=== PATIENT | male | born 1935 | race Caucasian/White ===

== ENCOUNTER 2017-06-30 14:30 | Outpatient (RCR) | payer OTHER, SELFPAY ==
--- NOTE | 2017-06-17 17:08 | PT.OTRE ---
Addendum entered and electronically signed by Paris Taylor, PT 06/17/17 17:56: Transition note: On June 14, 2017 our therapy services consisting of Speech, Occupational, and Physical Therapy transitioned from the [employer] electronic documentation system to a new [employer] electronic documentation system.?? All documentation prior to June 14 can be found under [employer] saved data. From June 14 forward all medical record documentation will be in [employer]. Original Note: Current Diagnoses Pain in left knee (06/17/17) Low back pain (06/17/17) Muscle weakness (generalized) (06/17/17) Iliotibial band syndrome, left leg (06/17/17) Dizziness and giddiness (06/17/17) Past Medical History (Last Updated 06/17/17 @ 15:46 by Ron Alicia, PT) Back pain (Acute) Dizziness (Acute) Head ache (Acute) Hearing impairment (Acute) Melanoma (Acute) Memory impairment (Acute) Surgical History History of cataract removal with insertion of prosthetic lens Status post hernia repair Status post hernia repair Status post tonsillectomy and adenoidectomy Physical Therapy Re-Evaluation PT-OP-A Visit Information Start: 06/17/17 15:25 Freq: Status: Active Protocol: Activity Type Activity Date Activity User E-Sign Co-Sign Detail Recorded Client Recorded Date Recorded By Document 06/17/17 15:10 [facility] [email or web address] 06/17/17 16:01 [facility] 06/17/17 15:10 Out-Patient Physical Therapy Visit Information [Visit Information] -Visit Type Re-Evaluation -Visit Note Initial evaluation on due to low back pain and also treated for dizziness up to 05/25/2017. New physical therapy referral for L knee pain dated 05/31/[address] Garcia, which is what was re- evaluated during this session. 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 Visits 0 [Evaluation Information] -Evaluation Date 05/05/17 PT-OP-B Current Condition Start: 06/17/17 15:25 Freq: Status: Active Protocol: Activity Type Activity Date Activity User E-Sign Co-Sign Detail Recorded Client Recorded Date Recorded By Document 06/17/17 15:10 [facility] [email or web address] 06/17/17 16:13 [facility] 06/17/17 15:10 Current Condition [History of Current Condition] -Onset Date 1 month ago -Current Complaints L knee and lateral thigh pain -History of Current Condition Pt is a 81 y/o male presenting to physical therapy with a c/o L knee and lateral thigh pain. Onset of pain ~1 month ago aggravated by exercises with physical therapy to his low back. His low back pain is no longer bothering him, he reports he is back to his prior level with his low back. Now, his L knee and lateral thigh is painful generally all the time, but worse with prolonged movement (i.e. walking). He has a h/o this condition dated back 4-5 yrs ago while swimming, but reports it went away with physical therapy and ultrasound. -Prior Treatments and Tests Treated for low back pain with return to prior level of function and dizziness with resolution from 05/05-05/25/17. He has a prior h/o same knee and thigh pain 4-5 years ago. No diagnostic imaging performed on knee. [Treatment Goals] -Patient/Caregiver Goals Pt wants to eliminated L knee and lateral thigh pain. [Prior Functional Status] -Baseline Function- ADL's Independent -Baseline Function- Mobility Independent -Baseline Function- Recreation/Hobbies Indep. yard work without L knee and lateral thigh pain. [Current Functional Impairments ( Reported)] -Functional Limitations- Recreation/ Indep. with Hobbies mild to moderate pain in L knee and lateral thigh pain. [Personal Factors] -Other Personal Factors That May Recent low back Effect Therapy/Recovery pain with return to prior level of function with physical therapy, recent h/o dizziness with GLF d/t dizziness 2017. Pt reports memory impairment ( self-reported). PT-OP-C Subjective Start: 06/17/17 15:25 Freq: Status: Active Protocol: Activity Type Activity Date Activity User E-Sign Co-Sign Detail Recorded Client Recorded Date Recorded By Document 06/17/17 15:10 [facility] [email or web address] 06/17/17 16:57 [facility] 06/17/17 15:10 OP-PT Subjective [Patient Comments] -Patient Comments Pt reports that L knee and lateral thigh pain is affecting his ability to tolerate walking and working in the yard. OP-PT Pain Assessment [Location] Left Knee -Intensity 2 -Scale Used Numeric (1 - 10 ) -Description Tender Tightness -Frequency Constant -Pain Aggravating Factors Activity Exercise Walking -Pain Alleviating Factors Rest -Patient Stated Pain Goal 0/10 [Home Pain Medication Use] -Pain Medications Used No [Comments] -Pain Comments Pt reports pain in both L lateral knee and thigh. PT-OP-F Manual Assessment Start: 06/17/17 15:25 Freq: Status: Active Protocol: Activity Type Activity Date Activity User E-Sign Co-Sign Detail Recorded Client Recorded Date Recorded By Document 06/17/17 15:10 [place] [id number] 06/17/17 16:57 [facility] 06/17/17 15:10 Manual Assessments [Soft Tissue Assessment] -Soft Tissue Mobility Assessment Tenderness to palpation: L IT band at distal attachment at the L lateral knee to mid lateral thigh. PT-OP-H Neuro Start: 06/17/17 15:25 Freq: Status: Active Protocol: Activity Type Activity Date Activity User E-Sign Co-Sign Detail Recorded Client Recorded Date Recorded By Document 06/17/17 15:10 [place] [id number] 06/17/17 16:57 [facility] 06/17/17 15:10 Sensation Evaluation [Gross Sensation] -Gross Sensation WNL Deep Tendon Reflex & Clonus Assessment [Deep Tendon Reflex] Bilateral Achilles -Deep Tendon Reflex 2+ Normal Bilateral Patellar -Deep Tendon Reflex 2+ Normal [Ankle Clonus] Bilateral -Clonus Assessment Absent PT-OP-K Range of Motion Start: 06/17/17 15:25 Freq: Status: Active Protocol: Activity Type Activity Date Activity User E-Sign Co-Sign Detail Recorded Client Recorded Date Recorded By Document 06/17/17 15:10 [place] [id number] 06/17/17 16:57 [facility] 06/17/17 15:10 Lumbar Spine Range of Motion [Lumbar Spine] Active Degrees -Testing Position Standing -Flexion 75 -Extension 25 -Comments no pain PT-OP-L Special Tests Start: 06/17/17 15:25 Freq: Status: Active Protocol: Activity Type Activity Date Activity User E-Sign Co-Sign Detail Recorded Client Recorded Date Recorded By Document 06/17/17 15:10 [facility] [email or web address] 06/17/17 16:57 [facility] 06/17/17 15:10 Special Tests [Other Special Tests] -Special Tests (-) Varus and Valgus stress testing, Marc, Anterior and Posterior Drawer testing (-) Magalys's testing bilaterally (+) Frantz test - L Rectus Femoris tightness (knee flexion to 70 degrees, R to 80 degrees). PT-OP-M Strength Start: 06/17/17 15:25 Freq: Status: Active Protocol: Activity Type Activity Date Activity User E-Sign Co-Sign Detail Recorded Client Recorded Date Recorded By Document 06/17/17 15:10 [facility] [email or web address] 06/17/17 16:57 [facility] 06/17/17 15:10 Hip Strength [Hip Manual Muscle Testing] Right -Flexion (L2) 4+ Good+ -Adduction 5 Normal -External Rotation 4+ Good+ -Internal Rotation 5 Normal Left -Flexion (L2) 4+ Good+ -Adduction 5 Normal -External Rotation 4+ Good+ -Internal Rotation 4 Good Knee Strength [Knee Manual Muscle Testing] Right -Flexion (S2) 5 Normal -Extension (L3) 5 Normal Left -Flexion (S2) 5 Normal -Extension (L3) 5 Normal Ankle/Foot Strength [Ankle and Foot Manual Muscle Testing] Right -Dorsiflexion (L4) 5 Normal Left -Dorsiflexion (L4) 5 Normal PT-OP-R Modalities Start: 06/17/17 15:25 Freq: Status: Active Protocol: Activity Type Activity Date Activity User E-Sign Co-Sign Detail Recorded Client Recorded Date Recorded By Document 06/17/17 15:10 [facility] [email or web address] 06/17/17 16:57 [facility] 06/17/17 15:10 Ultrasound Therapy [Treatment] L IT Band -Treatment Duration (minutes) 10 -Patient Position Supine -Coupling Medium Ultrasound Gel -Frequency Setting (mHz) 1 -Mode Setting Continuous -Intensity Setting (w/cm2) 1.2 -Patient Tolerance Good PT-OP-T Assessment and Plan Start: 06/17/17 15:25 Freq: Status: Active Protocol: Activity Type Activity Date Activity User E-Sign Co-Sign Detail Recorded Client Recorded Date Recorded By Document 06/17/17 15:10 [facility] [email or web address] 06/17/17 16:57 [facility] 06/17/17 15:10 Physical Therapy Assessment [Rehab Potential] -Rehabilitation Potential Good [Evaluation Complexity] -Number of Personal Factors/ 1-2 Comorbidities -Number of Body Systems Impaired 3 -Clinical Presentation at Evaluation Evolving [Impairments] -Impairments Activity Tolerance Pain Soft Tissue Mobility Strength [Goals] Three -Impairment Pt is unable to perform yard work without increased pain. -Short Term Goal (STG) Pt will tolerate 30 min of yard work without increased L lateral thigh and hip pain. -STG Duration 3 weeks -Senior Living Goal (LTG) Pt will tolerate up to 1 hour of yard work without increased L lateral thigh and hip pain. -LTG Duration 6 weeks Two -Impairment L hip IR weakness- 4/5 -Short Term Goal (STG) 4+/5 MMT grading of L hip IR -STG Duration 3 weeks -Summer School Coordinator Goal (LTG) 5/5 MMT grading of L hip IR -LTG Duration 6 weeks One -Impairment Pain rated 3/10 L lateral knee and thigh -Short Term Goal (STG) 1/10 pain rating L lateral knee and thigh -STG Duration 3 weeks -Summer School Coordinator Goal (LTG) 0/10 pain rating L lateral knee and thigh -LTG Duration 6 weeks [Assessment Summary] -Assessment Pt presents with tension and pain located in the L lateral knee and thigh, specifically in the IT band. Mgaalys's test negative, but IT band appears to be the tissue causing pain due to location noted by pt and (+) palpation testing. Pt with tightness in the L rectus femoris with Frantz testing compared to norms and to the contralateral side. Pt also is unable to tolerate yard work without increased L lateral knee and thigh pain, which his prior level of function is 1+ hours of yard work without pain. Pt would greatly benefit from skilled physical therapy intervention to decrease pain, improve strength and soft tissue mobility, and improve functional and recreational abilities in walking and yard work. Physical Therapy Plan [Frequency and Duration] -Frequency of Treatment 2x/Week -Duration of Treatment 6 weeks -Plan of Care Start Date 06/17/17 -Plan of Care End Date 07/29/17 [Therapeutic Interventions] -Therapeutic Interventions Aquatic Therapy Home Exercise Program Manual Therapy Neuromuscular Re-education Patient/ Caregiver Education Self-Care/Home Management Soft Tissue Mobilization Taping Therapeutic Activities Therapeutic Exercises -Modalities Cold Pack/Ice Massage Electric Stimulation Hot Packs Ultrasound [Next Visit Focus/Plan] -Next Visit Plan Soft tissue mobility of IT band, rectus femoris stretching, clamshells and reverse clamshells. Assess tolerance to ultrasound.
--- NOTE | 2017-06-17 17:09 | PT.OPPOC ---
Current Diagnoses Pain in left knee (06/17/17) Low back pain (06/17/17) Muscle weakness (generalized) (06/17/17) Iliotibial band syndrome, left leg (06/17/17) Dizziness and giddiness (06/17/17) Plan Of Care PT-OP-T Assessment and Plan Start: 06/17/17 15:25 Freq: Status: Active Protocol: Activity Type Activity Date Activity User E-Sign Co-Sign Detail Recorded Client Recorded Date Recorded By Document 06/17/17 15:10 [facility] [email or web address] 06/17/17 16:57 [facility] 06/17/17 15:10 Physical Therapy Assessment [Rehab Potential] -Rehabilitation Potential Good [Evaluation Complexity] -Number of Personal Factors/ 1-2 Comorbidities -Number of Body Systems Impaired 3 -Clinical Presentation at Evaluation Evolving [Impairments] -Impairments Activity Tolerance Pain Soft Tissue Mobility Strength [Goals] Three -Impairment Pt is unable to perform yard work without increased pain. -Short Term Goal (STG) Pt will tolerate 30 min of yard work without increased L lateral thigh and hip pain. -STG Duration 3 weeks -Multiple Drum Sander Goal (LTG) Pt will tolerate up to 1 hour of yard work without increased L lateral thigh and hip pain. -LTG Duration 6 weeks Two -Impairment L hip IR weakness- 4/5 -Short Term Goal (STG) 4+/5 MMT grading of L hip IR -STG Duration 3 weeks -Multiple Drum Sander Goal (LTG) 5/5 MMT grading of L hip IR -LTG Duration 6 weeks One -Impairment Pain rated 3/10 L lateral knee and thigh -Short Term Goal (STG) 1/10 pain rating L lateral knee and thigh -STG Duration 3 weeks -Multiple Drum Sander Goal (LTG) 0/10 pain rating L lateral knee and thigh -LTG Duration 6 weeks [Assessment Summary] -Assessment Pt presents with tension and pain located in the L lateral knee and thigh, specifically in the IT band. Magalys's test negative, but IT band appears to be the tissue causing pain due to location noted by pt and (+) palpation testing. Pt with tightness in the L rectus femoris with Frantz testing compared to norms and to the contralateral side. Pt also is unable to tolerate yard work without increased L lateral knee and thigh pain, which his prior level of function is 1+ hours of yard work without pain. Pt would greatly benefit from skilled physical therapy intervention to decrease pain, improve strength and soft tissue mobility, and improve functional and recreational abilities in walking and yard work. Physical Therapy Plan [Frequency and Duration] -Frequency of Treatment 2x/Week -Duration of Treatment 6 weeks -Plan of Care Start Date 06/17/17 -Plan of Care End Date 07/29/17 [Therapeutic Interventions] -Therapeutic Interventions Aquatic Therapy Home Exercise Program Manual Therapy Neuromuscular Re-education Patient/ Caregiver Education Self-Care/Home Management Soft Tissue Mobilization Taping Therapeutic Activities Therapeutic Exercises -Modalities Cold Pack/Ice Massage Electric Stimulation Hot Packs Ultrasound [Next Visit Focus/Plan] -Next Visit Plan Soft tissue mobility of IT band, rectus femoris stretching, clamshells and reverse clamshells. Assess tolerance to ultrasound. Plan of Care Dates Plan of Care Start Date 06/17/17 Plan of Care End Date 07/29/17 Provider Visit Care Team Role Provider Type Elia Garcia MD Attending Provider Physician Family Provider Primary Care Provider Specialty: Family Practice Address: [address] [place] [address], [facility] Email: [email or web address] Please Sign and Return: I have reviewed this Plan of Care and certify that the skilled therapy services above are required to meet the patient???s needs. Physician Signature Date Printed Name and Credentials
--- NOTE | 2017-06-23 15:19 | PT.OTN ---
Current Diagnoses Low back pain (06/23/17) Muscle weakness (generalized) (06/23/17) Dizziness and giddiness (06/23/17) Physical Therapy Treatment Note PT-OP-A Visit Information Start: 06/17/17 15:25 Freq: Status: Active Protocol: Document 06/23/17 15:05 [facility] (Rec: 06/23/17 15:19 [facility] [email or web address]) Out-Patient Physical Therapy Visit Information Visit Information Visit Type Treatment Note Visit Start Time 14:30 Visit Stop Time 15:05 Total Visit Minutes 35 Visit Number 2 Number of SILVICULTURE FORESTER Visits 0 Evaluation Information Evaluation Date 05/05/17 PT-OP-C Subjective Start: 06/17/17 15:25 Freq: Status: Active Protocol: Document 06/23/17 15:05 [facility] (Rec: 06/23/17 15:19 [facility] [email or web address]) OP-PT Subjective Patient Comments Patient Comments Pt notes that he was able to mow his lawn after last session. He is still having pain, but now more proximally, he marked it with an x. PT-OP-F Manual Assessment Start: 06/17/17 15:25 Freq: Status: Active Protocol: Document 06/23/17 15:05 [facility] (Rec: 06/23/17 15:19 [facility] [email or web address]) Manual Assessments Soft Tissue Assessment Soft Tissue Mobility Assessment TTP: L IT band, most sensitive 15.5 cm proximal to x pt marked on himself. PT-OP-Q Treatments Start: 06/17/17 15:25 Freq: Status: Active Protocol: Document 06/23/17 15:05 [facility] (Rec: 06/23/17 15:19 [facility] [email or web address]) Therapeutic Exercises Standing Exercises 1 Standing Exercise Name IT band stretch Side left Equipment Used doorway Reps/Minutes 3 min. Manual Therapy Treatment Soft Tissue Mobilization 1 Body Location L IT band Mobilization Type Strumming Intensity/Depth mod Body Position Supine Self-Care/Home Management Treatment Education Patient Education Home Exercise Program Other Education standing IT band stretch PT-OP-R Modalities Start: 06/17/17 15:25 Freq: Status: Active Protocol: Document 06/23/17 15:05 [facility] (Rec: 06/23/17 15:19 [facility] [email or web address]) Ultrasound Therapy Treatment L IT Band Treatment Duration (minutes) 10 Patient Position Supine Coupling Medium Ultrasound Gel Frequency Setting (mHz) 1 Mode Setting Continuous Intensity Setting (w/cm2) 1.2 Patient Tolerance Good PT-OP-T Assessment and Plan Start: 06/17/17 15:25 Freq: Status: Active Protocol: Document 06/23/17 15:05 [facility] (Rec: 06/23/17 15:19 [facility] [email or web address]) Physical Therapy Assessment Assessment Summary Assessment Pt's pain and tension in the L IT band more proximally into the middle 1/3. Pt tolerated ultrasound with less pain, and given IT band self stretch with picture and directions. Pt was able to mow the lawn but yet to back to cleaning the siding of his house. Physical Therapy Plan Frequency and Duration Frequency of Treatment 2x/Week Duration of Treatment 6 weeks Plan of Care Start Date 06/17/17 Plan of Care End Date 07/29/17 Next Visit Focus/Plan Next Visit Plan Rectus femoris stretching, assess tolerance and response to STR.
--- NOTE | 2017-06-30 15:18 | PT.OTN ---
Current Diagnoses Low back pain (06/30/17) Muscle weakness (generalized) (06/30/17) Dizziness and giddiness (06/30/17) Physical Therapy Treatment Note PT-OP-A Visit Information Start: 06/17/17 15:25 Freq: Status: Active Protocol: Document 06/30/17 15:10 [facility] (Rec: 06/30/17 15:16 [facility] [email or web address]) Out-Patient Physical Therapy Visit Information Visit Information Visit Type Treatment Note Visit Start Time 14:30 Visit Stop Time 15:10 Total Visit Minutes 40 Visit Number 3 Number of DIAMOND CLEAVER Visits 0 Evaluation Information Evaluation Date 05/05/17 PT-OP-C Subjective Start: 06/17/17 15:25 Freq: Status: Active Protocol: Document 06/30/17 15:10 [facility] (Rec: 06/30/17 15:16 [facility] [email or web address]) OP-PT Subjective Patient Comments Patient Comments Pt notes that he again marked an x where his highest pain was. He has been doing the stretching, feeling it mostly in his upper thigh. PT-OP-F Manual Assessment Start: 06/17/17 15:25 Freq: Status: Active Protocol: Document 06/23/17 15:05 [facility] (Rec: 06/23/17 15:19 [facility] [email or web address]) Manual Assessments Soft Tissue Assessment Soft Tissue Mobility Assessment TTP: L IT band, most sensitive 18.5 cm from fibular head to location. PT-OP-Q Treatments Start: 06/17/17 15:25 Freq: Status: Active Protocol: Document 06/30/17 15:10 [facility] (Rec: 06/30/17 15:16 [facility] [email or web address]) Therapeutic Exercises Supine Exercises 1 Supine Exercise Name Frantz stretch Side left Sitting Exercises 1 Sitting Exercise Name IT band stretch Side left Manual Therapy Treatment Soft Tissue Mobilization 2 Body Location lateral quadriceps Mobilization Type Strumming Intensity/Depth Moderate Body Position Supine Comments 9 min 1 Body Location L IT band Mobilization Type Strumming Intensity/Depth mod Body Position Supine Comments 16 min PT-OP-R Modalities Start: 06/17/17 15:25 Freq: Status: Active Protocol: Document 06/30/17 15:10 [facility] (Rec: 06/30/17 15:16 [facility] [email or web address]) Ultrasound Therapy Treatment L IT Band Treatment Duration (minutes) 10 Patient Position Supine Coupling Medium Ultrasound Gel Frequency Setting (mHz) 1 Mode Setting Continuous Intensity Setting (w/cm2) 1.2 Patient Tolerance Good PT-OP-T Assessment and Plan Start: 06/17/17 15:25 Freq: Status: Active Protocol: Document 06/30/17 15:10 [facility] (Rec: 06/30/17 15:16 [facility] [email or web address]) Physical Therapy Assessment Assessment Summary Assessment Pt's discomfort in IT band 3 cm more proximal this date compared to last session. Overall, he is still below his prior level of function but does appear to have less discomfort with palpation and manual treatment. Physical Therapy Plan Frequency and Duration Frequency of Treatment 2x/Week Duration of Treatment 6 weeks Plan of Care Start Date 06/17/17 Plan of Care End Date 07/29/17 Next Visit Focus/Plan Next Visit Plan progress stretching, gluteal strengthening.
--- NOTE | 2017-08-26 10:49 | PT.OPDS ---
Current Diagnoses Low back pain (06/30/17) Muscle weakness (generalized) (06/30/17) Dizziness and giddiness (06/30/17) Provider Visit Care Team Role Provider Type Elia Garcia MD Attending Provider Physician Family Provider Primary Care Provider Specialty: Family Practice Address: [address] [place] [address], [id number] Email: [email or web address] Visit Number Visit Number 2 for L knee Discharge Summary PT-OP-B Current Condition Start: 06/17/17 15:25 Freq: Status: Active Protocol: Document 06/17/17 15:10 RCC (Rec: 06/17/17 16:13 RCC [email or web address]) Current Condition History of Current Condition Onset Date 1 month ago Current Complaints L knee and lateral thigh pain History of Current Condition Pt is a 81 y/o male presenting to physical therapy with a c/ o L knee and lateral thigh pain. Onset of pain ~1 month ago aggravated by exercises with physical therapy to his low back. His low back pain is no longer bothering him, he reports he is back to his prior level with his low back. Now, his L knee and lateral thigh is painful generally all the time, but worse with prolonged movement (i.e. walking). He has a h/o this condition dated back 4-5 yrs ago while swimming, but reports it went away with physical therapy and ultrasound. Prior Treatments and Tests Treated for low back pain with return to prior level of function and dizziness with resolution from 05/05-05/25/17. He has a prior h/o same knee and thigh pain 4-5 years ago. No diagnostic imaging performed on knee. Treatment Goals Patient/Caregiver Goals Pt wants to eliminated L knee and lateral thigh pain. Prior Functional Status Baseline Function- ADL's Independent Baseline Function- Mobility Independent Baseline Function- Recreation/Hobbies Indep. yard work without L knee and lateral thigh pain. Current Functional Impairments (Reported) Functional Limitations- Recreation/ Indep. with mild to moderate Hobbies pain in L knee and lateral thigh pain. Personal Factors Other Personal Factors That May Effect Recent low back pain with Therapy/Recovery return to prior level of function with physical therapy , recent h/o dizziness with GLF d/t dizziness 05/01/2017. Pt reports memory impairment ( self-reported). PT-OP-C Subjective Start: 06/17/17 15:25 Freq: Status: Active Protocol: Document 08/26/17 10:45 RCC (Rec: 08/26/17 10:49 RCC [email or web address]) OP-PT Subjective Patient Comments Patient Comments Spoke with pt's significant other on the phone. She reports he has switched to [facility] for ongoing treatment. PT-OP-F Manual Assessment Start: 06/17/17 15:25 Freq: Status: Active Protocol: Document 06/23/17 15:05 RCC (Rec: 06/23/17 15:19 RCC [email or web address]) Manual Assessments Soft Tissue Assessment Soft Tissue Mobility Assessment TTP: L IT band, most sensitive 15.5 cm proximal to x pt marked on himself. PT-OP-H Neuro Start: 06/17/17 15:25 Freq: Status: Active Protocol: Document 06/17/17 15:10 RCC (Rec: 06/17/17 16:57 RCC [email or web address]) Sensation Evaluation Gross Sensation Gross Sensation WNL Deep Tendon Reflex & Clonus Assessment Deep Tendon Reflex Bilateral Achilles Deep Tendon Reflex 2+ Normal Bilateral Patellar Deep Tendon Reflex 2+ Normal Ankle Clonus Bilateral Clonus Assessment Absent PT-OP-K Range of Motion Start: 06/17/17 15:25 Freq: Status: Active Protocol: Document 06/17/17 15:10 RCC (Rec: 06/17/17 16:57 RCC [email or web address]) Lumbar Spine Range of Motion Lumbar Spine Active Degrees Testing Position Standing Flexion 75 Extension 25 Comments no pain PT-OP-L Special Tests Start: 06/17/17 15:25 Freq: Status: Active Protocol: Document 06/17/17 15:10 RCC (Rec: 06/17/17 16:57 RCC [email or web address]) Special Tests Other Special Tests Special Tests (-) Varus and Valgus stress testing, Marc, Anterior and Posterior Drawer testing (-) Magalys's testing bilaterally (+) Frantz test- L Rectus Femoris tightness (knee flexion to 70 degrees, R to 80 degrees). PT-OP-M Strength Start: 06/17/17 15:25 Freq: Status: Active Protocol: Document 06/17/17 15:10 RCC (Rec: 06/17/17 16:57 RCC [email or web address]) Hip Strength Hip Manual Muscle Testing Right Flexion (L2) 4+ Good+ Adduction 5 Normal External Rotation 4+ Good+ Internal Rotation 5 Normal Left Flexion (L2) 4+ Good+ Adduction 5 Normal External Rotation 4+ Good+ Internal Rotation 4 Good Knee Strength Knee Manual Muscle Testing Right Flexion (S2) 5 Normal Extension (L3) 5 Normal Left Flexion (S2) 5 Normal Extension (L3) 5 Normal Ankle/Foot Strength Ankle and Foot Manual Muscle Testing Right Dorsiflexion (L4) 5 Normal Left Dorsiflexion (L4) 5 Normal PT-OP-T Assessment and Plan Start: 06/17/17 15:25 Freq: Status: Active Protocol: Document 08/26/17 10:45 [facility] (Rec: 08/26/17 10:49 [facility] [email or web address]) Physical Therapy Assessment Progress Towards Goals Progress Comments not able to be assessed, as pt did not return for future follow up appointments. Assessment Summary Assessment Pt attended physical therapy from April to June of 2017 at [facility], initially due to back pain which appeared to be improving. Pt was also treated for BPPV with resolution of dizziness. Pt also had c/o L knee pain which he was treated for twice, and then did not schedule further sessions beyond those dates. Pt's significant other reported today that pt had switched to [facility] for ongoing treatment . Pt will be discharged from this facility and is now receiving ongoing treatment at another clinic. Physical Therapy Plan Discharge Physical Therapy Discharge Comments Pt switched to services at another facility.
== END 2018-01-27 13:28 ==
LOC: PHYS 14:30
PROVIDERS: Family Provider Family Medicine; PCP Family Medicine; Visit Provider Family Medicine
DX: M54.5 Low back pain (principal); M62.81 Muscle weakness (generalized); R42 Dizziness and giddiness; M25.562 Pain in left knee; M76.32 Iliotibial band syndrome, left leg
CPT/HCPCS: 97035; 97140; 97164

== ENCOUNTER → 2017-08-08 11:07 | Outpatient (CLI) | payer OTHER, SELFPAY ==
[2017-08-10 13:45] LABS: PSA Free % 24 % (calc) (> 25); PSA, Total 1.7 ng/mL (< 4.1)
== END ==
PROVIDERS: PCP Family Medicine; Visit Provider Family Medicine
DX: N39.0 Urinary tract infection, site not specified (principal)
CPT/HCPCS: 36415; 84153; 84154

== ENCOUNTER → 2018-05-18 06:43 | Outpatient (CLI) | payer OTHER, SELFPAY ==
[2018-05-18 08:28] LABS: Add Manual Diff / Slide Review NO; Basophils Absolute Auto 0 /uL (0-100); Basophils Percent Auto 0.8 % (0-2); Eosinophils Absolute Auto 200 /uL (0-450); Eosinophils Percent Auto 3.4 % (2-4); Hematocrit 43.6 % (41-53); Hemoglobin 14.4 g/dL (13.5-17.5); Lymphocytes Absolute Auto 1900 /uL (1100-4500); Lymphocytes Percent Auto 31.2 % (25-40); Mean Corpuscular Hemoglobin 31.3 PG (26-34); Monocytes Absolute Auto 700 /uL (0-900); Monocytes Percent Auto 10.6 % (3-14); Neutrophils Absolute Auto 3300 /uL (1500-7000); Red Blood Cell Count 4.59 X10^6/uL (4.5-5.9); Red Cell Distribution Width 13.7 % (11.6-14.8); White Blood Cell Count 6.2 X10^3/uL (4.5-11.0)
[2018-05-18 09:03] LABS: Alanine Aminotransferase 27 IU/L (21-72); Albumin 4.3 g/dL (3.5-5.0); Albumin Globulin Ratio 1.3 (1.0-2.8); Alkaline Phosphatase 64 U/L (38-126); Aspartate Aminotransferase 32 IU/L (17-59); BUN Creatinine Ratio 28.8 (6-22); Bilirubin Total 0.7 mg/dL (0.2-1.3); Blood Urea Nitrogen 23 mg/dL (9-20); Calcium 9.2 mg/dL (8.4-10.2); Carbon Dioxide 30 mmol/L (22-32); Chloride 100 mmol/L (98-107); Cholesterol 146 mg/dL (140-199); Estimated Glomerular Filt Rate > 60.0 mL/min (>60); Globulin 3.2 g/dL (1.7-4.1); Glucose 85 mg/dL (80-110); HDL Cholesterol 47 mg/dL (40-60); HEMOLYSIS < 15 (0-50); LDL Cholesterol Calculated 87 mg/dL (<100); Sodium 140 mmol/L (137-145); Total Protein 7.5 g/dL (6.3-8.2); Triglycerides 61 mg/dL (35-150)
[2018-05-18 09:17] LABS: Platelet Count 177 X10^3/uL (150-400)
[2018-05-18 09:33] LABS: Prostate Specific Antigen Scrn 1.69 ng/mL (0.1-4.0)
[2018-05-18 09:35] LABS: Thyroid Stimulating Hormone 2.09 uIU/mL (0.47-4.68)
== END ==
PROVIDERS: PCP Family Medicine; Visit Provider Family Medicine
DX: E78.2 Mixed hyperlipidemia (principal); E03.9 Hypothyroidism, unspecified; R39.198 Other difficulties with micturition; R89.9 Unspecified abnormal finding in specimens from other organs, systems and tissues; Z12.5 Encounter for screening for malignant neoplasm of prostate; Z13.0 Encounter for screening for diseases of the blood and blood-forming organs and certain disorders involving the immune mechanism
CPT/HCPCS: 36415; 80053; 80061; 84443; 85025; G0103

== ENCOUNTER → 2018-07-06 09:07 | Outpatient (CLI) | payer OTHER, SELFPAY ==
[2018-07-08 18:00] LABS: Fecal Immunochemical Test NOT DETECTED (NOT DETECTED)
== END ==
PROVIDERS: PCP Family Medicine; Visit Provider Family Medicine
DX: Z12.11 Encounter for screening for malignant neoplasm of colon (principal)
CPT/HCPCS: 82274

== ENCOUNTER → 2018-07-11 09:15 | Outpatient (CLI) | payer OTHER, SELFPAY ==
--- NOTE | 2018-07-11 | DI.ECHO.S_ITS ---
[place] +---------+ [facility] +---------+ : : [address] : : : : [id number] : : : : Phone: [phone]+ Echocardiogram Report + + :Name: MIKE LEWIS Study Date: 07/11/2018 Height: 68 in : :[facility] Exam Location: IS Weight: 130 lb : : Gender: Male BSA: 1.7 m2 : :: 1935 Age: 82 yrs BP: 122/80 mmHg: :Reason For Study: Mitral Valve- Prolapse : :Ordering Physician: Starr Wood : :Marion Performed By: Aparna Page : + + Interpretation Summary 1) Normal left ventricular thickness, size, wall motion, and systolic function (EF 60-65%). 2) Normal right ventricular size and function. 3) Both atria are severely dilated (when volume is indexed to BSA). 4) Bileaflet mitral valve prolapse with moderate late systolic posteriorly directed mitral regurgitation. 5) The right ventricular systolic pressure is estimated to be at least 35 mmHg based on an estimated right atrial pressure of 15 mm Hg. 6) The aortic root is mildly dilated at 4.2cm. 7) Compared to the Echo done 05/13/2017, biatrial enlargement appears more severe on this study. Procedure: A two-dimensional transthoracic echocardiogram with color flow and Doppler was performed. The study quality was technically adequate. Comparison is made with the echocardiogram of 05/13/2017. The heart rate ranged between 44-52 bpm during the study. Left Ventricle: The left ventricular cavity is small. There is normal left ventricular wall thickness. The ejection fraction is estimated to be 60-65%. There are no focal wall motion abnormalities. Right Ventricle: The right ventricle is normal in size and function. Atria: Both atria are severely dilated. Both atria have significantly increased in size since the prior echo exam. There is no Doppler evidence for an interatrial shunt. Mitral Valve: Mitral valve prolapse is present. There is moderate mitral regurgitation. The mitral regurgitant jet is eccentrically directed. Aortic Valve: The aortic valve is trileaflet. The aortic valve opens well. There is trace aortic regurgitation. Tricuspid Valve: The tricuspid valve leaflets are thin and pliable. There is trace tricuspid regurgitation. The right ventricular systolic pressure is estimated to be at least 35 mmHg based on an estimated right atrial pressure of 15 mm Hg. Pulmonic Valve: The pulmonic valve is not well visualized. There is trace pulmonic regurgitation. Great Vessels: The aortic root is mildly dilated. The ascending aorta is at the upper limits of normal in size. The pulmonary artery is not well visualized, but is probably normal size. The IVC is dilated (diameter is greater than 2.1 cm) and it collapses less than 50% with a sniff. This suggests a high right atrial pressure of 15 mm Hg. Pericardium/ Pleura There is no pericardial effusion. There is no pleural effusion. MMode/2D Measurements & Calculations LVIDd: 3.9 cm LVOT diam: 2.1 cm LVIDs: 2.6 cm Ao root diam: 4.2 cm FS: 32.8 % asc Aorta Diam: 3.5 cm IVSd: 0.76 cm LVPWd: 0.91 cm LV núñez. diameter/BSA (cm/m^2): 2.3 LV sys. diameter/BSA (cm/m^2): 1.6 LA A2 area: 21.9 cm2 RA long axis: 5.7 cm LA A4 area: 25.7 cm2 RA area: 28.3 cm2 LA length (vol): 5.8 cm RA vol: 119.5 ml LA vol: 82.4 ml RA : 70.2 ml/m2 LA vol index: 48.4 ml/m2 IVC diam: 2.2 cm RVD1 (basal): 4.0 cm Doppler Measurements & Calculations Ao V2 max: 126.7 cm/sec LVOT Max Tommie: 81.0 cm/sec Ao V2 mean: 94.2 cm/sec LV V1 max P.6 mmHg Ao max P.4 mmHg LV V1 VTI: 18.5 cm Ao mean P.8 mmHg ROSA(I,D): 2.2 cm2 Ao V2 VTI: 29.8 cm ROSA(V,D): 2.2 cm2 sev ratio: 0.62 ROSA indexed to BSA (cm^2/m^2): 1.3 MV E max tommie: 57.1 cm/sec TR max tommie: 224.3 cm/sec MV A max tommie: 33.9 cm/sec TR max P.1 mmHg MV E/A: 1.7 PA V2 max: 73.7 cm/sec Med Peak E' Tommie: 6.0 cm/sec PA V2 mean: 48.3 cm/sec E/E' med: 9.5 PA mean P.0 mmHg Lat Peak E' Tommie: 8.2 cm/sec PA Accel Time: 0.13 sec E/E' lat: 7.0 E/e' average: 8.3 MV dec time: 0.42 sec MV P1/2t: 124.9 msec MV P1/2t max tommie: 58.4 cm/sec SV(LVOT): 64.7 ml MVA(P1/2t): 1.8 cm2 Reading Physician:04:13 PM
== END ==
PROVIDERS: PCP Family Medicine; Visit Provider Internal Medicine Cardiovascular Disease
DX: I34.1 Nonrheumatic mitral (valve) prolapse (principal); I34.0 Nonrheumatic mitral (valve) insufficiency
CPT/HCPCS: 93306

== ENCOUNTER → 2018-07-20 09:07 | Outpatient (CLI) | payer OTHER, SELFPAY ==
[2018-07-20 10:15] LABS: BUN Creatinine Ratio 26.7 (6-22); Blood Urea Nitrogen 24 mg/dL (9-20); Estimated Glomerular Filt Rate > 60.0 mL/min (>60)
== END ==
PROVIDERS: Registered Nurse; PCP Family Medicine; Visit Provider Family Medicine
DX: R10.31 Right lower quadrant pain (principal)
CPT/HCPCS: 36415; 82565; 84520

== ENCOUNTER → 2018-07-25 09:48 | Outpatient (CLI) | payer OTHER, SELFPAY ==
--- NOTE | 2018-07-25 10:15 | DI.CT.S_ITS ---
PROCEDURE: CT ABDOMEN PELVIS W CON INDICATIONS: Right lower quadrant pain TECHNIQUE: After the administration of oral and intravenous contrast, 5 mm thick sections acquired from the diaphragms to the symphysis. 5 mm thick coronal and sagittal reformats were performed. For radiation dose reduction, the following was used: automated exposure control, adjustment of mA and/or kV according to patient size. COMPARISON: [facility], CT, ABDOMEN/PELVIS WITH CONTRAST, 03/03/2016, 10:41. [facility], CT, KIDNEY/ URETER/BLADDER, 10/02/2016, 13:26. [facility], CT, ABDOMEN/PELVIS WITH CONTRAST, 10/21/2016, 10:47. FINDINGS: Image quality: Excellent. ABDOMEN: Lung bases: Lung bases are clear. Heart size is normal. Solid organs: Liver is normal in size and enhancement. Gallbladder is normal. Biliary system is non-dilated. Pancreas enhances normally. Spleen is normal in size and enhancement. No adrenal nodules. Kidneys are normal in size and enhancement, without hydronephrosis. There are bilateral renal cortical cysts Peritoneum and bowel: Stomach, small bowel, and colon loops are normal in caliber and wall thickness. A moderate amount of stool is present in colon. Appendix is normal. There is no right lower quadrant stranding. No free fluid or air. Nodes and vessels: No retroperitoneal or mesenteric adenopathy. Aorta and inferior vena cava are normal in caliber. Miscellaneous: No ventral hernias. PELVIS: Genitourinary: Bladder wall is mildly thickened. No bladder stones visualized on the current exam. Enlarged prostate with calcifications. Miscellaneous: No inguinal hernias or adenopathy. Bones: No suspicious bony lesions. No vertebral body compression fractures. IMPRESSION: 1. Normal appendix. No CT findings to explain right lower quadrant pain. 2. Enlarged prostate with calcifications. 3. There is mild lateral thickening. Bladder stones seen on prior CTs are no longer visualized. 4. Moderate amount of stool in colon. Dictated by: Esau Ambrocio M.D. on 07/25/2018 at 13:15 Approved by: Esau Ambrocio M.D. on 07/25/2018 at 17:11
== END ==
PROVIDERS: PCP Family Medicine; Visit Provider Registered Nurse
DX: R10.31 Right lower quadrant pain (principal); N40.0 Benign prostatic hyperplasia without lower urinary tract symptoms
CPT/HCPCS: 74177; Q9967

== ENCOUNTER → 2018-11-10 11:17 | Outpatient (CLI) | payer OTHER, SELFPAY ==
[2018-11-10 13:23] LABS: Thyroid Stimulating Hormone 3.87 uIU/mL (0.47-4.68)
[2018-11-10 13:38] LABS: Vitamin B12 683 pg/mL (239-931)
[2018-11-15 22:06] LABS: Albumin 3.9 g/dL (3.8-4.8); Alpha 1 Globulin 0.3 g/dL (0.2-0.3); Alpha 2 Globulin 0.7 g/dL (0.5-0.9); Beta 1 Globulin 0.5 g/dL (0.4-0.6); Gamma Globulin 1.2 g/dL (0.8-1.7)
== END ==
PROVIDERS: Family Provider Internal Medicine; PCP Family Medicine; Visit Provider Family Medicine
DX: R25.1 Tremor, unspecified (principal); R41.89 Other symptoms and signs involving cognitive functions and awareness
CPT/HCPCS: 36415; 82607; 84155; 84165; 84443

== ENCOUNTER → 2018-11-22 10:03 | Outpatient (CLI) | payer OTHER, SELFPAY ==
--- NOTE | 2018-11-22 10:24 | DI.CT.S_ITS ---
PROCEDURE: CT HEAD/BRAIN WO CON INDICATIONS: cognitive decline and tremor TECHNIQUE: Noncontrast 4.5 mm thick angled axial sections acquired from the foramen magnum to the vertex, with coronal and sagittal reformats. For radiation dose reduction, the following was used: automated exposure control, adjustment of mA and/or kV according to patient size. COMPARISON: [facility], MR, BRAIN WITHOUT CONTRAST, 09/23/2015, 12:24. FINDINGS: Image quality: Excellent. CSF spaces: Basal cisterns are patent. No extra-axial fluid collections. The ventricles are symmetric in size and shape. Brain: No intracranial bleeds or masses. There is cerebral volume loss for age, with resultant ventricular and sulcal prominence. There are periventricular and deep white matter chronic small vessel ischemic changes. There is intracranial internal carotid artery atherosclerosis. Skull and face: Calvarium and visualized facial bones appear intact, without suspicious lesions. Sinuses: Visualized sinuses and mastoids are clear. IMPRESSION: Normal intracranial study for age, with note made of brain parenchymal volume loss and chronic small vessel ischemic change. Dictated by: Keith Case M.D. on 11/22/2018 at 9:56 Approved by: Keith Case M.D. on 11/22/2018 at 9:57
== END ==
PROVIDERS: PCP Family Medicine; Visit Provider Family Medicine
DX: R41.89 Other symptoms and signs involving cognitive functions and awareness (principal); R25.1 Tremor, unspecified; G62.9 Polyneuropathy, unspecified
CPT/HCPCS: 70450

== ENCOUNTER → 2019-07-10 07:04 | Outpatient (CLI) | payer OTHER, SELFPAY ==
[2019-07-10 08:53] LABS: Add Manual Diff / Slide Review NO; Basophils Absolute Auto 0 /uL (0-100); Basophils Percent Auto 0.7 % (0-2); Eosinophils Absolute Auto 500 /uL (0-450); Eosinophils Percent Auto 7.2 % (2-4); Hematocrit 43.8 % (41-53); Hemoglobin 14.4 g/dL (13.5-17.5); Lymphocytes Absolute Auto 1800 /uL (1100-4500); Lymphocytes Percent Auto 26.6 % (25-40); Mean Corpuscular HGB Conc 32.8 % (30-36); Mean Corpuscular Hemoglobin 31.4 PG (26-34); Mean Corpuscular Volume 95.7 fL (80-100); Monocytes Absolute Auto 700 /uL (0-900); Monocytes Percent Auto 10.8 % (3-14); Neutrophils Absolute Auto 3800 /uL (1500-7000); Neutrophils Percent Auto 54.7 % (50-75); Platelet Count 184 X10^3/uL (150-400); Red Blood Cell Count 4.58 X10^6/uL (4.5-5.9); Red Cell Distribution Width 13.5 % (11.6-14.8); White Blood Cell Count 6.9 X10^3/uL (4.5-11.0)
[2019-07-10 09:41] LABS: Alanine Aminotransferase 16 IU/L (<50); Albumin 4.3 g/dL (3.5-5.0); Albumin Globulin Ratio 1.2 (1.0-2.8); Alkaline Phosphatase 73 U/L (38-126); Aspartate Aminotransferase 33 IU/L (17-59); BUN Creatinine Ratio 28.6 (6-22); Bilirubin Total 0.5 mg/dL (0.2-1.3); Blood Urea Nitrogen 24 mg/dL (9-20); Calcium 9.2 mg/dL (8.4-10.2); Carbon Dioxide 30 mmol/L (22-32); Chloride 101 mmol/L (98-107); Estimated Glomerular Filt Rate > 60.0 mL/min (>60); Globulin 3.5 g/dL (1.7-4.1); Glucose 88 mg/dL (80-110); Sodium 137 mmol/L (137-145); Total Protein 7.8 g/dL (6.3-8.2)
[2019-07-10 11:01] LABS: Luteinizing Hormone 4.39 mIU/mL
[2019-07-10 12:34] LABS: Cholesterol 150 mg/dL (140-199); HDL Cholesterol 39 mg/dL (40-60); LDL Cholesterol Calculated 97 mg/dL (<100); Triglycerides 68 mg/dL (35-150)
[2019-07-10 13:55] LABS: HEMOLYSIS < 15 (0-50); Testosterone 575 ng/dL (71.8-623)
== END ==
PROVIDERS: PCP Family Medicine; Referring Provider Family Medicine; Visit Provider Family Medicine
DX: E78.2 Mixed hyperlipidemia (principal); N62 Hypertrophy of breast
CPT/HCPCS: 36415; 80053; 80061; 83002; 84403; 84443; 85025

== ENCOUNTER → 2019-07-19 07:54 | Outpatient (CLI) | payer OTHER, SELFPAY ==
--- NOTE | 2019-07-19 | DI.ECHO.S_ITS ---
[facility] +---------+ [facility] +---------+ : : [address] : : : : [id number] : : : : Phone: [phone]+ Echocardiogram Report + + :Name: MIKE LEWIS Study Date: 07/19/2019 Height: 68 in : :[facility] Weight: 135 lb : : Gender: Male BSA: 1.7 m2 : :: 1935 Age: 83 yrs BP: 122/64 mmHg: :Reason For Study: Mitral valve prolapse : :Ordering Physician: Sarah Wood : :Marion Performed By: Teresita Gonzalez : :Referring: SARAH SCHULTZ : + + Interpretation Summary 1) Normal left ventricular thickness, size, wall motion, and systolic function (EF 60-65%). 2) Normal right ventricular size with mildly reduced function. 3) Both atria are mildly dilated (when volume is indexed to BSA). 4) Bileaflet mitral valve prolapse with mild to moderate late systolic posteriorly directed mitral regurgitation. 5) The right ventricular systolic pressure is estimated to be at least 24 mmHg based on an estimated right atrial pressure of 3 mm Hg. 6) Compared to the Echo done 07/11/2018, mitral regurgitation has decreased from moderate to mild-moderate on this study. Procedure: A two-dimensional transthoracic echocardiogram with color flow and Doppler was performed. Comparison is made with the echocardiogram of 07/11/2018. The study quality was technically good. The patient was in sinus bradycardia with heart rates between 53-60 bpm during the exam. The patient had occasional PVCs during the exam. The patient had occasional PACs during the exam. Left Ventricle: The left ventricle is normal in size and wall thickness. The ejection fraction is estimated to be 50-55%. Left ventricular global longitudinal strain average is -20.7%. There is a mild dyssynchronous contraction pattern, consistent with a conduction abnormality. Right Ventricle: The right ventricle is normal size. Right ventricular systolic function is mildly reduced. Atria: There is mild biatrial enlargement. There is no Doppler evidence for an interatrial shunt. Mitral Valve: There is mild mitral valve prolapse. There is mild to moderate mitral regurgitation. The mitral regurgitant jet is eccentrically directed. Aortic Valve: The aortic valve is trileaflet. The aortic valve opens well. There is no aortic valve stenosis. No aortic regurgitation is present. Tricuspid Valve: The tricuspid valve is normal in structure and function. There is mild tricuspid regurgitation. The right ventricular systolic pressure is estimated to be at least 24 mmHg based on an estimated right atrial pressure of 3 mm Hg. Pulmonic Valve: The pulmonic valve is normal in structure and function. There is trace pulmonic regurgitation. Great Vessels: The aortic root is normal size. The ascending aorta is at the upper limits of normal in size. The IVC is of normal diameter and collapses greater than 50% with a sniff. This suggests a low right atrial pressure of 3 mm Hg. Pericardium/ Pleura There is no pericardial effusion. There is no pleural effusion. MMode/2D Measurements & Calculations LVIDd: 4.6 cm LVOT diam: 2.2 cm LVIDs: 3.4 cm Ao root diam: 3.5 cm FS: 27.2 % asc Aorta Diam: 3.5 cm EPSS: 1.0 cm Ao Arch Diam (Prox Trans): 3.2 cm IVSd: 0.74 cm LVPWd: 0.65 cm LV núñez. diameter/BSA (cm/m^2): 2.7 LV sys. diameter/BSA (cm/m^2): 2.0 LA A2 area: 20.4 cm2 RA long axis: 4.6 cm LA A4 area: 14.7 cm2 RA area: 17.2 cm2 LA length (vol): 4.7 cm RA vol: 55.0 ml LA vol: 53.8 ml RA : 31.8 ml/m2 LA vol index: 31.1 ml/m2 IVC diam: 0.91 cm RVD1 (basal): 3.9 cm TAPSE: 1.5 cm Doppler Measurements & Calculations Ao V2 max: 138.9 cm/sec LVOT Max Tommie: 92.9 cm/sec Ao V2 mean: 95.1 cm/sec LV V1 max P.5 mmHg Ao max P.7 mmHg LV V1 VTI: 18.3 cm Ao mean P.1 mmHg ROSA(I,D): 2.4 cm2 Ao V2 VTI: 29.3 cm ROSA(V,D): 2.6 cm2 sev ratio: 0.62 ROSA indexed to BSA (cm^2/m^2): 1.4 MV E max tommie: 47.1 cm/sec TR max tommie: 227.8 cm/sec MV A max tommie: 48.4 cm/sec TR max P.8 mmHg MV E/A: 0.97 PA V2 max: 82.9 cm/sec Med Peak E' Tommie: 6.6 cm/sec PA V2 mean: 54.5 cm/sec E/E' med: 7.1 PA mean P.4 mmHg Lat Peak E' Tommie: 8.1 cm/sec E/E' lat: 5.8 E/e' average: 6.5 MV dec time: 0.38 sec MR ERO: 0.11 cm2 MR PISA: 1.6 cm2 SV(LVOT): 70.1 ml MR flow rate: 60.6 cm3/sec MR PISA radius: 0.51 cm Reading Physician:12:00 PM
--- NOTE | 2019-07-19 07:56 | DI.MRI.S_ITS ---
PROCEDURE: MR HEAD/BRAIN WO CON INDICATIONS: memory impairment TECHNIQUE: Non-contrast axial T1 spin echo, axial T2 fast spin echo, sagittal and axial FLAIR, coronal T2 fast spin echo, axial gradient echo, axial diffusion and ADC through the brain. COMPARISON: [facility], CT, CT HEAD/BRAIN WO CON, 11/22/2018, 10:19. [facility], MR, BRAIN WITHOUT CONTRAST, 09/23/2015, 12:24. FINDINGS: Image quality: Excellent. CSF spaces: Ventricles appear symmetric in size and shape. Basal cisterns are patent. No extra-axial fluid collections. Brain: No intracranial bleeds or mass effects. There is cerebral volume loss for age. There are periventricular and deep white matter chronic small vessel ischemic changes. Brainstem appears normal. Diffusion-weighted images show no acute ischemic insults. No chronic ischemic insults. Normal intravascular flow voids are present. Relatively prominent perivascular spaces are also seen. Skull and face: Calvarial bone marrow is normal in signal. Orbits are normal. Note is made of bilateral lens replacements. Sinuses: Sinuses and mastoids are clear. IMPRESSION: Note is made of age-appropriate brain parenchymal volume loss and chronic small vessel ischemic changes. No findings of acute or subacute infarction can be seen. Dictated by: Keith Case M.D. on 07/19/2019 at 11:45 Approved by: Keith Case M.D. on 07/19/2019 at 11:46
== END ==
PROVIDERS: PCP Family Medicine; Referring Provider Internal Medicine Cardiovascular Disease; Visit Provider Internal Medicine Cardiovascular Disease
DX: I08.1 Rheumatic disorders of both mitral and tricuspid valves (principal); R41.3 Other amnesia
CPT/HCPCS: 70551; 93306

== ENCOUNTER → 2019-11-27 07:55 | Outpatient (CLI) | payer OTHER, SELFPAY ==
[2019-11-27 09:44] LABS: BUN Creatinine Ratio 28.6 (6-22); Blood Urea Nitrogen 22 mg/dL (9-20); Estimated Glomerular Filt Rate > 60.0 mL/min (>60)
== END ==
PROVIDERS: PCP Family Medicine; Referring Provider Surgery; Visit Provider Surgery
DX: R10.814 Left lower quadrant abdominal tenderness (principal)
CPT/HCPCS: 36415; 82565; 84520

== ENCOUNTER → 2019-11-29 09:56 | Outpatient (CLI) | payer OTHER, SELFPAY ==
--- NOTE | 2019-11-29 09:58 | DI.CT.S_ITS ---
PROCEDURE: CT ABDOMEN PELVIS W CON INDICATIONS: r/o left spigellian hernia TECHNIQUE: After the administration of oral and intravenous contrast, 5 mm thick sections acquired from the diaphragms to the symphysis. 5 mm thick coronal and sagittal reformats were performed. For radiation dose reduction, the following was used: automated exposure control, adjustment of mA and/or kV according to patient size. COMPARISON: [facility], CT, CT ABDOMEN PELVIS W CON, 07/25/2018, 10:36. FINDINGS: Image quality: Excellent. ABDOMEN: Lung bases: Lung bases are clear. Heart size is normal. Solid organs: Liver is normal in size and enhancement. Gallbladder is within normal limits . Biliary system is non-dilated. Pancreas enhances normally. Spleen is normal in size and enhancement. No adrenal nodules. Kidneys are normal in size and enhancement, without hydronephrosis. Upper pole left renal cysts. Peritoneum and bowel: Stomach, small bowel, and colon loops are normal in caliber and wall thickness. Mildly increased quantity of semi solid stool throughout the colon. No free fluid or air. Nodes and vessels: No retroperitoneal or mesenteric adenopathy. Aorta and inferior vena cava are normal in caliber. Miscellaneous: No ventral hernias. PELVIS: Genitourinary: Bladder wall thickness is normal. Mild prostatomegaly with several coarse calcifications. Miscellaneous: There is a direct left inguinal hernia containing fat and a small amount of fluid coursing caudal, medial to the neurovascular bundle. There is a very small, fluid containing right inguinal hernia, potentially indirect. No evidence of spigelian hernia. Normal size pelvic lymph nodes are present. Bones: No suspicious bony lesions. No vertebral body compression fractures. IMPRESSION: 1. Bilateral inguinal hernias, left greater than right, direct on the left and likely indirect on the right. No significant change compared to the prior study. 2. No CT evidence of spigelian hernia. 3. Mild obstipation. Dictated by: Rosio Dejesus M.D. on 11/29/2019 at 12:17 Approved by: Rosio Dejesus M.D. on 11/29/2019 at 12:30
== END ==
PROVIDERS: PCP Family Medicine; Referring Provider Family Medicine; Visit Provider Surgery
DX: K40.20 Bilateral inguinal hernia, without obstruction or gangrene, not specified as recurrent (principal); K59.00 Constipation, unspecified
CPT/HCPCS: 74177; Q9967

== ENCOUNTER → 2020-01-25 06:57 | Outpatient (CLI) | payer OTHER, SELFPAY ==
[2020-01-25 08:19] LABS: Alanine Aminotransferase 15 IU/L (<50); Albumin 4.3 g/dL (3.5-5.0); Albumin Globulin Ratio 1.2 (1.0-2.8); Alkaline Phosphatase 78 U/L (38-126); Aspartate Aminotransferase 30 IU/L (17-59); BUN Creatinine Ratio 31.4 (6-22); Bilirubin Total 0.7 mg/dL (0.2-1.3); Blood Urea Nitrogen 27 mg/dL (9-20); Calcium 9.3 mg/dL (8.4-10.2); Carbon Dioxide 30 mmol/L (22-32); Chloride 102 mmol/L (98-107); Cholesterol 162 mg/dL (140-199); Estimated Glomerular Filt Rate > 60.0 mL/min (>60); Globulin 3.5 g/dL (1.7-4.1); Glucose 90 mg/dL (80-110); HDL Cholesterol 54 mg/dL (40-60); HEMOLYSIS < 15 (0-50); LDL Cholesterol Calculated 96 mg/dL (<100); Potassium 3.9 mmol/L (3.4-5.1); Sodium 138 mmol/L (137-145); Total Protein 7.8 g/dL (6.3-8.2); Triglycerides 60 mg/dL (35-150)
[2020-01-25 08:46] LABS: Free T4, Direct Thyroxine 1.51 ng/dL (0.78-2.19)
[2020-01-25 09:00] LABS: Thyroid Stimulating Hormone 1.16 uIU/mL (0.47-4.68)
== END ==
PROVIDERS: PCP Family Medicine; Referring Provider Internal Medicine; Visit Provider Internal Medicine
DX: E03.9 Hypothyroidism, unspecified (principal); E78.2 Mixed hyperlipidemia
CPT/HCPCS: 36415; 80053; 80061; 84439; 84443

== ENCOUNTER → 2020-01-29 14:43 | Outpatient (CLI) | payer OTHER, SELFPAY ==
--- NOTE | 2020-01-29 14:47 | DI.CT.S_ITS ---
PROCEDURE: CT UE RT WO CON INDICATIONS: Pain in right wrist TECHNIQUE: Noncontrast 1 mm axial sections acquired through the carpal bones, with coronal and sagittal reformats. COMPARISON: [facility], CR, XR WRIST 1 OR 2 VIEWS BILATERAL, 01/21/2020, 8:33. FINDINGS: Image quality: Excellent. Bones: Prominent bulky osteophyte involving the triquetrum. There is associated cortical irregularity and lucency which is thought to be due in part to volume-averaging artifact Anatomic alignment is seen. Scattered degenerative subchondral sclerosis and spurring. Soft tissues: Unremarkable appearance of the visualized muscles and tendons. IMPRESSION: Cortical irregularity of the triquetrum which is thought to be related to bulky osteophyte formation and or volume averaging. However recommend clinical correlation to point tenderness to exclude fracture. If there is persistent clinical uncertainty, recommend further evaluation with MRI. Dictated by: Calvin Galvan M.D. on 01/29/2020 at 15:46 Approved by: Calvin Galvan M.D. on 01/29/2020 at 15:54
== END ==
PROVIDERS: PCP Internal Medicine; Referring Provider Orthopaedic Surgery; Visit Provider Orthopaedic Surgery
DX: M25.531 Pain in right wrist (principal); G47.19 Other hypersomnia; G47.33 Obstructive sleep apnea (adult) (pediatric); G47.00 Insomnia, unspecified
CPT/HCPCS: 73200; 99214

== ENCOUNTER 2020-03-17 13:51 | Emergency (ER) | payer OTHER, SELFPAY ==
[2020-03-17 14:15] VITALS: BP 134/71; PULSE 78; RESP 16; TEMP 37.1; O2SAT 97
--- NOTE | 2020-03-17 14:20 | DI.RAD.S_ITS ---
PROCEDURE: XR KNEE RT 3V INDICATIONS: pain TECHNIQUE: 3 views of the knee were acquired. COMPARISON: None. FINDINGS: Bones: No fractures or dislocations. No suspicious bony lesions. Soft tissues: No joint effusion. No suspicious soft tissue calcifications. IMPRESSION: Source of pain is not seen. 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 Dictated by: Mahesh Gibbons M.D. on 03/17/2020 at 15:06 Approved by: Mahesh Gibbons M.D. on 03/17/2020 at 15:07
[2020-03-17] MEDS: LIDOCAINE PATCH 1 EACH ADH..PATCH TOP (14:53)
[2020-03-17] MEDS: ACETAMINOPHEN 325 MG TABLET 650 MG PO (14:53)
--- NOTE | 2020-03-17 14:57 | ED.LOWEXIN ---
HPI - Extremity Injury (Lower) <BENTON BarrosoBC - Last Filed: 03/17/20 16:00> General Chief Complaint: Extremity Injury, Lower Stated Complaint: right knee gave out/cant walk Time Seen by Provider: 03/17/20 14:32 Source: patient Mode of arrival: Wheelchair Limitations: no limitations History of Present Illness HPI Narrative: The patient is an 84-year-old male former smoker with history of hypothyroidism who presents with a chief complaint of right knee pain. He states that his right knee has been hurting in the back for the past few days, and then it gets worse with ambulation and motion. He states that today he tried to walk and just could not because the pain and feels as though his knee ?gave out.He denies any previous surgeries or injuries to his right knee. He has not taken anything for pain. He presents with his . Related Data Home Medications Medication Instructions Recorded Confirmed carboxymethylcellulose 1 EYE-BOTH 07/25/19 02/19/20 %-glycerin 0.9 % eye gel drops Previous Rx's Medication Instructions Recorded cholecalciferol (vitamin D3) 25 25 mcg PO DAILY #90 cap 12/26/19 mcg (1,000 unit) capsule levothyroxine 75 mcg tablet 75 mcg PO QDAY #90 tab 12/26/19 memantine 5 mg tablet 5 mg PO BID #180 tab 12/26/19 pravastatin 20 mg tablet See Rx Instructions .ROUTE 12/26/19 .COMPLEX #45 tablet tamsulosin 0.4 mg capsule 0.8 mg PO DAILY #180 cap 12/26/19 lidocaine 1 patch TOPICAL DAILY PRN #15 ea 03/17/20 Allergies Allergy/AdvReac Type Severity Reaction Status Date / Time No Known Drug Allergies Allergy Unknown Verified 03/17/20 14:20 [NO KNOWN DRUG ALLERGIES] Review of Systems <HUMBLE Barroso - Last Filed: 03/17/20 16:00> Review of Systems Narrative: GENERAL: Denies chills, fatigue, malaise, fever, sweats. HEENT: Denies sinus pain, ear pain, sore throat, difficulty swallowing, dizziness. RESPIRATORY: Denies dyspnea, cough, wheezing, hemoptysis, sputum. CARDIOVASCULAR: Denies chest pain, palpitations, orthopnea, edema, GASTROINTESTINAL: Denies nausea, vomiting, abdominal pain, diarrhea, constipation, melena. : Denies dysuria, frequency, incontinence, hematuria, urinary retention. MUSCULOSKELETAL: See HPI SKIN: Denies rash, skin lesions, or other NEUROLOGIC: Denies weakness, headache, numbness, change in speech, confusion, seizures, incoordination. PSYCHIATRIC: No concerning psychosocial issues. 12 point review of systems is negative except for those stated above Patient History <HUMBLE Barroso - Last Filed: 03/17/20 16:00> Medical History (Updated 03/17/20 @ 15:51 by HUMBLE Barroso) Actinic keratosis (1993) BPH w urinary obs/LUTS Chronic back pain (1969) Excessive daytime sleepiness Head ache Hearing impairment (1997) Hemorrhoids (1969) History of basal cell carcinoma (BCC) of skin (01/20/17) History of SCC (squamous cell carcinoma) of skin (1987) Hyperthyroidism (2012) Memory impairment Mitral regurgitation Mitral valve prolapse Obstructive sleep apnea of adult Skin cancer (1974) Surgical History Anesthesia History of cataract removal with insertion of prosthetic lens (2012) History of squamous cell carcinoma excision (2013) History of squamous cell carcinoma excision (1987) Status post hernia repair (1979) Status post hernia repair (1987) Status post Mohs surgery for basal cell carcinoma (03/09/17) Status post tonsillectomy and adenoidectomy (1941) Family History Brother Age: 75 Skin cancer Father Metastatic cancer to brain Respiratory failure Mother Cancer Alzheimer's disease Aspiration pneumonia Sister Age: 83 Alzheimer's disease Social History Smoking Status: Former smoker alcohol intake: never substance use type: does not use Smoking Status: Former smoker alcohol intake frequency: other Substance Use Type: does not use Exam <HUMBLE Barroso - Last Filed: 03/17/20 16:00> Narrative Exam Narrative: GENERAL: This is a well-nourished, well-developed patient, in no acute distress HEAD: Atraumatic. Normocephalic. No temporal or scalp tenderness. EYES: Pupils equal round and reactive. Extraocular motions intact. No scleral icterus. No injection or drainage. ENT: Nose without bleeding, purulent drainage or septal hematoma. Wearing a mask Airway patent. NECK: Trachea midline. No JVD or lymphadenopathy. Supple, nontender, no meningeal signs. RESPIRATORY: No cough. No increased respiratory effort. No accessory muscle use. EXTREMITIES: General pain to palpation posterior right knee, extending posterior right upper leg. No obvious erythema, no swelling noted. Positive pedal pulses. Able to lift right leg off of stretcher, able to bend right knee. BACK: Nontender without deformity or crepitance. No flank tenderness. NEURO: AOx3. SKIN: No rash or erythema on visible skin Initial Vital Signs Initial Vital Signs: Vital Signs Temperature 98.7 F 03/17/20 14:15 Pulse Rate 78 03/17/20 14:15 Respiratory Rate 16 03/17/20 14:15 Blood Pressure 134/71 03/17/20 14:15 Pulse Oximetry 97 03/17/20 14:15 <To Rudolph DO - Last Filed: 03/17/20 17:18> Initial Vital Signs Initial Vital Signs: Vital Signs Temperature 98.7 F 03/17/20 14:15 Pulse Rate 78 03/17/20 14:15 Respiratory Rate 16 03/17/20 14:15 Blood Pressure 134/71 03/17/20 14:15 Pulse Oximetry 97 03/17/20 14:15 Scores <HUMBLE Barroso - Last Filed: 03/17/20 16:00> GCS [place] coma scale eye opening: Spontaneous [place] coma scale verbal response: Orientated Parvin coma scale motor response: Obey commands Parvin coma scale total score: 15 Course <HUMBLE Barroso - Last Filed: 03/17/20 16:00> Orders Ordered: ED Orders 03/17/20 14:20 XR knee RT 3V Stat Discontinued Medications Acetaminophen (Acetaminophen 325 Mg Tablet) 650 mg PO NOW ONE Stop: 03/17/20 14:48 Last Admin: 03/17/20 14:53 Dose: 650 mg Documented by: REVA Lidocaine (Lidocaine Patch 1 Each Adh..Patch) 1 each TOP NOW ONE Stop: 03/17/20 14:48 Last Admin: 03/17/20 14:53 Dose: 1 each Documented by: REVA Vital Signs Vital signs: Vital Signs - 8 hr 03/17/20 14:15 03/17/20 16:08 Temperature 98.7 F Pulse Rate 78 72 Respiratory Rate 16 15 Blood Pressure 134/71 133/72 Pulse Oximetry 97 97 <To Rudolph DO - Last Filed: 03/17/20 17:18> Orders Ordered: ED Orders 03/17/20 14:20 XR knee RT 3V Stat Discontinued Medications Acetaminophen (Acetaminophen 325 Mg Tablet) 650 mg PO NOW ONE Stop: 03/17/20 14:48 Last Admin: 03/17/20 14:53 Dose: 650 mg Documented by: REVA Lidocaine (Lidocaine Patch 1 Each Adh..Patch) 1 each TOP NOW ONE Stop: 03/17/20 14:48 Last Admin: 03/17/20 14:53 Dose: 1 each Documented by: REVA Vital Signs Vital signs: Vital Signs - 8 hr 03/17/20 14:15 03/17/20 16:08 Temperature 98.7 F Pulse Rate 78 72 Respiratory Rate 16 15 Blood Pressure 134/71 133/72 Pulse Oximetry 97 97 [facility] - Extremity Injury (Lower) <BENTON Barroso - Last Filed: 03/17/20 16:00> Imaging Data Extremity x-ray #1: Radiologist's Impression: [address] [place] [id number] ReportSigned Patient: Evan Hager KMR#: [id number]: 8Acct:[id number]/Sex: 84 / MDate of Service: 03/17/20Loc: EDAccession Number: [id number] Procedure: XR knee RT 3V Ordering Provider: To Rudolph D.O. PROCEDURE: XR KNEE RT 3V INDICATIONS: pain TECHNIQUE: 3 views of the knee were acquired. COMPARISON: None. FINDINGS: Bones: No fractures or dislocations. No suspicious bony lesions. Soft tissues: No joint effusion. No suspicious soft tissue calcifications. IMPRESSION: Source of pain is not seen. 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 Dictated by: Mahesh Gibbons M.D. on 03/17/2020 at 15:06 Approved by: Mahesh Gibbons M.D. on 03/17/2020 at 15:07 [facility] Narrative Medical decision making narrative: The patient is an 84 year year old male who presents with a chief complaint of knee pain over the past few days. X-ray is no acute findings. Patient is neurovascular intact. Elected a trial lidocaine patch, which she states helps his pain encouraged follow-up with primary care provider in the next few days. Patient is able to weightbear and ambulate. No signs of DVT, not swollen, no erythema. Additionally pain is mechanical in nature. Encouraged rest ice compression elevation as well as [id number] pain medications as needed and able. Did provide a prescription of lidocaine patch. Encouraged follow-up with primary care provider in the next few days as he may benefit from further evaluation and/or physical therapy etcetera. Patient have no questions or concerns upon discharge and state understanding of return precautions as well as follow-up care. Discharge Plan Departure Patient Disposition: Home Clinical Impression: Acute pain of right knee Instructions: How to Choose and Use a Walker, How To Perform RICE (Rest, Ice, Compress, Elevate), DI for Knee Pain, DI for Leg Pain Activity Restrictions/Additional Instructions: As I discussed, your x-ray shows no acute fracture. This does not rule out a soft tissue injury such as a ligament or tendon injury. It is important that you follow up with primary care provider, especially if worsening or no improvement. There can be fractures that did not show up on initial x-ray. Please use rest ice compression elevation. I sent a prescription of lidocaine patches to [facility]. Prescriptions: New lidocaine 5 % adhesive patch,medicated 1 patch topical DAILY PRN (Reason: pain) Qty: 15 RF: 0 No Action Refresh Optive 1-0.9 % drops,gel EYE-BOTH RF: 0 cholecalciferol (vitamin D3) 25 mcg (1,000 unit) capsule 25 mcg PO DAILY Qty: 90 RF: 3 levothyroxine 75 mcg tablet 75 mcg PO QDAY Qty: 90 RF: 3 memantine [Namenda] 5 mg tablet 5 mg PO BID Qty: 180 RF: 3 pravastatin 20 mg tablet See Rx Instructions .ROUTE .COMPLEX Qty: 45 RF: 3 tamsulosin 0.4 mg capsule 0.8 mg PO DAILY Qty: 180 RF: 3 Referrals: Lexx John MD [Primary Care Provider] - <To Rudolph DO - Last Filed: 03/17/20 17:18> Cosign ED Attending Cosignature Attestation: Dr Rudolph Co-Sign Statement: I was available for consultation during this patient's emergency department visit. This chart is signed by myself for administrative purposes only. I did not have direct contact with this patient during this visit. They were seen independently by the APC.
[2020-03-17 16:08] VITALS: BP 133/72; PULSE 72; RESP 15; O2SAT 97
--- NOTE | 2020-03-17 16:11 | PC.NURSE ---
divine demonstrated proper use of walker. Patient very happy and satisfied having a walker and says it will come in very handy at home.
== END 2020-03-17 16:10 | disposition home or self-care (01) ==
PROVIDERS: Emergency Provider Nurse Practitioner Family; PCP Internal Medicine
DX: M25.561 Pain in right knee (principal); E03.9 Hypothyroidism, unspecified
CPT/HCPCS: 73562; 99283

== ENCOUNTER 2020-05-04 12:47 | Emergency (ER) | payer OTHER, SELFPAY ==
[2020-05-04] VITALS (8 sets, daily range): BP systolic 134–157; BP diastolic 64–83; PULSE 63–89; RESP 12; TEMP 36.7; O2SAT 97–100; BMI 20.2
--- NOTE | 2020-05-04 13:13 | DI.RAD.S_ITS ---
PROCEDURE: XR ABDOMEN MIN 2V INDICATIONS: constipation TECHNIQUE: 2 views of the abdomen were acquired. COMPARISON: [facility], CT, CT ABDOMEN PELVIS W CON, 11/29/2019, 11:10. [facility], CR, ABDOMEN 1 VIEW, 10/26/2016, 20:06. FINDINGS: Surgical changes and devices: None. Bowel: No pneumoperitoneum. Prominent stool in the left colon. Scattered small bowel and colonic gas. Soft tissues: No masses; visualized solid organ contours appear normal in size. No suspicious abdominal calcifications. Bones: No suspicious bony abnormalities. IMPRESSION: Prominent stool in the left colon. Dictated by: Anil Etienne M.D. on 05/04/2020 at 13:04 Approved by: Anil Etienne M.D. on 05/04/2020 at 13:09
--- NOTE | 2020-05-04 13:41 | ED_ITS ---
HPI - Abdominal Pain <VÍCTOR Rashid - Last Filed: 05/04/20 17:43> General Chief Complaint: Abdominal Pain Stated Complaint: inactive rectum Time Seen by Provider: 05/04/20 12:55 Source: patient Mode of arrival: Ambulatory Limitations: no limitations History of Present Illness HPI narrative: This is a 84-year-old male, former smoker, who has past medical history significant for hyperlipidemia, BPH, hypothyroidism presents to ED with chief complain of constipation. Patient states he has known chronic constipation for decades but he elisa with eating dried cherries and lots of fluid intake and has daily bowel movements until 5-6 days ago. He reports had last bowel movements 3 days ago which was very small and had normal bowel movements 5-6 days ago. Patient denies abdominal pain, rectal pressure, fever, decreased appetite. Patient denies changing his regimen for constipation and denies changing routines for diet, activities, or medication. Patient had used 3 enema as over last 3 days and had taken 8 oz magnesium citrate this morning without bowel movements at this time. Patient denies urinary symptoms or urinary retention. PCP Dr. John Related Data Home Medications Medication Instructions Recorded Confirmed carboxymethylcellulose 1 EYE-BOTH 07/25/19 03/21/20 %-glycerin 0.9 % eye gel drops Previous Rx's Medication Instructions Recorded cholecalciferol (vitamin D3) 25 25 mcg PO DAILY #90 cap 12/26/19 mcg (1,000 unit) capsule levothyroxine 75 mcg tablet 75 mcg PO QDAY #90 tab 12/26/19 memantine 5 mg tablet 5 mg PO BID #180 tab 12/26/19 pravastatin 20 mg tablet See Rx Instructions .ROUTE 12/26/19 .COMPLEX #45 tablet tamsulosin 0.4 mg capsule 0.8 mg PO DAILY #180 cap 12/26/19 lidocaine 1 patch TOPICAL DAILY PRN #15 ea 03/17/20 Allergies Allergy/AdvReac Type Severity Reaction Status Date / Time No Known Drug Allergies Allergy Unknown Verified 05/04/20 13:08 [NO KNOWN DRUG ALLERGIES] Review of Systems <VÍCTOR Rashid - Last Filed: 05/04/20 17:43> Review of Systems Narrative: General: Denies fever, chills, fatigue, malaise, sweats. HEENT: Denies sinus pain, ear pain, sore throat, difficulty swallowing, dizziness, (+) difficulty hearing. Respiratory: Denies dyspnea, cough, wheezing, hemoptysis, sputum. Cardiovascular: Denies chest pain, palpitations, orthopnea, edema. Gastrointestinal: See HPI : Denies dysuria, frequency, incontinence, hematuria, urinary retention. Musculoskeletal: Denies weakness, joint pain or bony pain. Skin: Denies rash, skin lesions, or other. Neurologic: Denies weakness, headache, numbness, change in speech, confusion, seizures, incoordination. Psychiatric: No concerning psychosocial issues. 12-point review of systems is negative except for those stated above. Patient History <VÍCTOR Rashid - Last Filed: 05/04/20 17:43> Medical History (Updated 05/04/20 @ 16:50 by VÍCTOR Rashid) Actinic keratosis (1993) BPH w urinary obs/LUTS Chronic back pain (1969) Excessive daytime sleepiness Head ache Hearing impairment (1997) Hemorrhoids (1969) History of basal cell carcinoma (BCC) of skin (01/20/17) History of SCC (squamous cell carcinoma) of skin (1987) Hyperthyroidism (2012) Memory impairment Mitral regurgitation Mitral valve prolapse Obstructive sleep apnea of adult Skin cancer (1974) Surgical History Anesthesia History of cataract removal with insertion of prosthetic lens (2012) History of squamous cell carcinoma excision (2013) History of squamous cell carcinoma excision (1987) Status post hernia repair (1979) Status post hernia repair (1987) Status post Mohs surgery for basal cell carcinoma (03/09/17) Status post tonsillectomy and adenoidectomy (1941) Family History Brother Age: 75 Skin cancer Father Metastatic cancer to brain Respiratory failure Mother Cancer Alzheimer's disease Aspiration pneumonia Sister Age: 83 Alzheimer's disease Social History Smoking Status: Former smoker alcohol intake: never substance use type: does not use Smoking Status: Former smoker alcohol intake frequency: other Substance Use Type: does not use Exam <VÍCTOR Rashid - Last Filed: 05/04/20 17:43> Narrative Exam Narrative: General appearance: well developed, well nourished, in no acute distress. Head: normocephalic, atraumatic, no scalp lesions, non-tender. ENT: Hearing grossly intact. Airway patent. Neck/Thyroid: neck supple, full range of motion, no visible masses or meningeal signs. No JVD, non-tender without lymphadenopathy. Skin: no suspicious rashes, lesions over visible areas. Warm and dry and appropriate color for ethnicity. Heart: no clubbing, no cyanosis, no edema. S1 and S2 normal. RRR w/o murmurs, clicks, or bruits. Lungs: Breathing even and unlabored. No stridor. No accessory muscles used. Able to speak in full sentences. Chest: normal shape and expansion. Abdomen: non-obese, non-distended and soft. Nontender to palpate in all quadrant. Active bowel sounds in all quadrant. Neurologic: alert and oriented. 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 Psych: good eye contact, normal affect. Initial Vital Signs Initial Vital Signs: Vital Signs Temperature 98.0 F 05/04/20 12:48 Pulse Rate 89 05/04/20 12:48 Respiratory Rate 12 05/04/20 12:48 Blood Pressure 157/83 H 05/04/20 12:48 Pulse Oximetry 100 05/04/20 12:48 <Leah Bailey DO - Last Filed: 05/05/20 07:57> Initial Vital Signs Initial Vital Signs: Vital Signs Temperature 98.0 F 05/04/20 12:48 Pulse Rate 89 05/04/20 12:48 Respiratory Rate 12 05/04/20 12:48 Blood Pressure 157/83 H 05/04/20 12:48 Pulse Oximetry 100 05/04/20 12:48 Scores <VÍCTOR Rashid - Last Filed: 05/04/20 17:43> GCS Parvin coma scale eye opening: Spontaneous [facility] coma scale verbal response: Orientated Parvin coma scale motor response: Obey commands Parvin coma scale total score: 15 Course <VÍCTOR Rashid - Last Filed: 05/04/20 17:43> Orders Ordered: Discontinued Medications Sodium Chloride (Normal Saline 0.9%) 500 mls @ 1,000 mls/hr IV BOLUS ONE Stop: 05/04/20 15:10 Last Infusion: 05/04/20 15:48 Dose: 0 mls/hr Documented by: Admin: 05/04/20 14:52 Dose: 1,000 mls/hr Documented by: JACKIE Mineral Oil (Mineral Oil 1 Each Enema) 1 each ID NOW ONE Stop: 05/04/20 16:39 Last Admin: 05/04/20 16:57 Dose: 1 each Documented by: JACKIE Reevaluation(s) Reevaluation #1: repeated rectal exam since patient states had passed gas and now feels some rectal pressure. Had small amount of stool on gloved finger tips but no hard stool felt per palpate to disimpact. Mineral oil enema ordered. Time: 16:52 Reevaluation #2: Patient reports relief of rectal pressure and improved symptoms before leaving ED after mineral oil enema. Time: 17:00 Vital Signs Vital signs: Vital Signs - 8 hr 05/04/20 12:48 05/04/20 12:54 05/04/20 13:27 Temperature 98.0 F Pulse Rate 89 80 67 Respiratory Rate 12 Blood Pressure 157/83 H 157/83 H Pulse Oximetry 100 99 97 05/04/20 13:28 05/04/20 15:20 05/04/20 15:30 Temperature Pulse Rate 67 63 64 Respiratory Rate Blood Pressure 134/64 Pulse Oximetry 98 98 97 05/04/20 15:56 05/04/20 16:00 Temperature Pulse Rate 63 66 Respiratory Rate Blood Pressure 143/82 H Pulse Oximetry 98 98 <Leah Bailey DO - Last Filed: 05/05/20 07:57> Orders Ordered: Discontinued Medications Sodium Chloride (Normal Saline 0.9%) 500 mls @ 1,000 mls/hr IV BOLUS ONE Stop: 05/04/20 15:10 Last Infusion: 05/04/20 15:48 Dose: 0 mls/hr Documented by: Admin: 05/04/20 14:52 Dose: 1,000 mls/hr Documented by: JACKIE Mineral Oil (Mineral Oil 1 Each Enema) 1 each ID NOW ONE Stop: 05/04/20 16:39 Last Admin: 05/04/20 16:57 Dose: 1 each Documented by: JACKIE Vital Signs Vital signs: Vital Signs - 8 hr 05/04/20 12:48 05/04/20 12:54 05/04/20 13:27 Temperature 98.0 F Pulse Rate 89 80 67 Respiratory Rate 12 Blood Pressure 157/83 H 157/83 H Pulse Oximetry 100 99 97 05/04/20 13:28 05/04/20 15:20 05/04/20 15:30 Temperature Pulse Rate 67 63 64 Respiratory Rate Blood Pressure 134/64 Pulse Oximetry 98 98 97 05/04/20 15:56 05/04/20 16:00 Temperature Pulse Rate 63 66 Respiratory Rate Blood Pressure 143/82 H Pulse Oximetry 98 98 MDM - Abdominal Pain <Brandon MagaliJOEYP - Last Filed: 05/04/20 17:43> Differential Diagnosis Differential diagnosis: Likely constipation, small bowel obstruction and other (Urinary tension, neoplasm, diverticulitis) Medical Records Attestation: I reviewed the patient's medical records. Lab Data Attestation: I reviewed the patient's lab results. Result diagrams: 05/04/20 13:56 05/04/20 13:56 Labs: Lab Results 05/04/20 05/04/20 05/04/20 Range/Units 13:56 13:56 13:56 WBC 6.4 (4.5-11.0) X10^3/uL RBC 4.30 L (4.5-5.9) X10^6/uL Hgb 13.8 (13.5-17.5) g/dL Hct 40.5 L (41-53) % MCV 94.2 (80-100) fL MCH 32.0 (26-34) PG MCHC 34.0 (30-36) % RDW 14.0 (11.6-14.8) % Plt Count 185 (150-400) X10^3/uL Neut % (Auto) 74.3 (50-75) % Lymph % (Auto) 14.6 L (25-40) % [place] % (Auto) 8.8 (3-14) % Eos % (Auto) 1.2 L (2-4) % Baso % (Auto) 1.1 (0-2) % Neut # (Auto) 4800 (2987-3989) /uL Lymph # (Auto) 900 L (6064-9603) /uL [place] # (Auto) 600 (0-900) /uL Eos # (Auto) 100 (0-450) /uL Baso # (Auto) 100 (0-100) /uL Plt Morphology Comment RBC Morphology Normal morphology Sodium 137 (137-145) mmol/L Potassium 4.1 (3.4-5.1) mmol/L Chloride 101 (98-107) mmol/L Carbon Dioxide 30 (22-32) mmol/L BUN 19 (9-20) mg/dL Creatinine 0.74 (0.66-1.25) mg/dL Estimated GFR > 60.0 (>60) mL/min BUN/Creatinine Ratio 25.7 H (6-22) Glucose 108 (80-110) mg/dL Calcium 8.9 (8.4-10.2) mg/dL Magnesium (1.6-2.3) mg/dL Total Bilirubin 0.3 (0.2-1.3) mg/dL AST 30 (17-59) IU/L ALT 22 (<50) IU/L Alkaline Phosphatase 63 (38-126) U/L Total Protein 6.9 (6.3-8.2) g/dL Albumin 3.9 (3.5-5.0) g/dL Globulin 3.0 (1.7-4.1) g/dL Albumin/Globulin Ratio 1.3 (1.0-2.8) TSH 0.81 (0.47-4.68) uIU/mL 05/04/20 Range/Units 13:56 WBC (4.5-11.0) X10^3/uL RBC (4.5-5.9) X10^6/uL Hgb (13.5-17.5) g/dL Hct (41-53) % MCV (80-100) fL MCH (26-34) PG MCHC (30-36) % RDW (11.6-14.8) % Plt Count (150-400) X10^3/uL Neut % (Auto) (50-75) % Lymph % (Auto) (25-40) % [place] % (Auto) (3-14) % Eos % (Auto) (2-4) % Baso % (Auto) (0-2) % Neut # (Auto) (4287-5934) /uL Lymph # (Auto) (5885-1244) /uL [place] # (Auto) (0-900) /uL Eos # (Auto) (0-450) /uL Baso # (Auto) (0-100) /uL Plt Morphology Comment RBC Morphology Sodium (137-145) mmol/L Potassium (3.4-5.1) mmol/L Chloride (98-107) mmol/L Carbon Dioxide (22-32) mmol/L BUN (9-20) mg/dL Creatinine (0.66-1.25) mg/dL Estimated GFR (>60) mL/min BUN/Creatinine Ratio (6-22) Glucose (80-110) mg/dL Calcium (8.4-10.2) mg/dL Magnesium 2.5 H (1.6-2.3) mg/dL Total Bilirubin (0.2-1.3) mg/dL AST (17-59) IU/L ALT (<50) IU/L Alkaline Phosphatase (38-126) U/L Total Protein (6.3-8.2) g/dL Albumin (3.5-5.0) g/dL Globulin (1.7-4.1) g/dL Albumin/Globulin Ratio (1.0-2.8) TSH (0.47-4.68) uIU/mL Imaging Data Abdominal x-ray: Radiologist's Impression: [address] [id number] ReportSigned Patient: Evan Hager KMR#: [id number]: 8Acct:[id number]/Sex: 84 / MDate of Service: 05/04/20Loc: EDAccession Number: [id number] Procedure: XR abdomen min 2V Ordering Provider: Brandon De Los Santos PROCEDURE: XR ABDOMEN MIN 2V INDICATIONS: constipation TECHNIQUE: 2 views of the abdomen were acquired. COMPARISON: [facility], CT, CT ABDOMEN PELVIS W CON, 11/29/2019, 11:10. [facility], CR, ABDOMEN 1 VIEW, 10/26/2016, 20:06. FINDINGS: Surgical changes and devices: None. Bowel: No pneumoperitoneum. Prominent stool in the left colon. Scattered small bowel and colonic gas. Soft tissues: No masses; visualized solid organ contours appear normal in size. No suspicious abdominal calcifications. Bones: No suspicious bony abnormalities. IMPRESSION: Prominent stool in the left colon. Dictated by: Anil Etienne M.D. on 05/04/2020 at 13:04 Approved by: Anil Etienne M.D. on 05/04/2020 at 13:09 CT scan - abdomen/pelvis: Radiologist's Impression: [address] [id number] Scan ReportSigned Patient: Evan Hager KMR#: [id number]: 8Acct:[id number]/Sex: 84 / MDate of Service: 05/04/20Loc: EDAccession Number: [id number] Procedure: CT abdomen pelvis w con Ordering Provider: Brandon De Los Santos PROCEDURE: CT ABDOMEN PELVIS W CON INDICATIONS: bowel habit changes, mass? diverticulitis? TECHNIQUE: After the administration of intravenous contrast, 5 mm thick sections acquired from the diaphragm to the symphysis. 5 mm coronal and sagittal reformats were acquired. For radiation dose reduction, the following was used: automated exposure control, adjustment of mA and/or kV according to patient size. COMPARISON: [facility], CT, CT ABDOMEN PELVIS W CON, 07/25/2018, 10:36. [facility], CT, CT ABDOMEN PELVIS W CON, 11/29/2019, 11:10. FINDINGS: Image quality: Excellent. ABDOMEN: Lung bases: Mild scarring or atelectasis, unchanged. No pleural effusion. Heart size is normal. Solid organs: Liver is normal in size. Small hypodensities in the liver are unchanged since at least 07/25/2018. Gallbladder is unremarkable. Biliary system is non dilated. Pancreas enhances normally. Spleen is normal in size and enhancement. No adre nal nodules. Kidneys demonstrate normal size and enhancement, without hydronephrosis. Small simple cyst in left kidney. A few cortical hypodensities which are too small to further characterize. Peritoneum and bowel: No small bowel obstruction demonstrated. There is fecalization within small bowel in the right lower quadrant, (2/53). Prominent stool in the colon. No significant diverticulosis. The appendix is normal. No free fluid or air. Nodes and vessels: No retroperitoneal or mesenteric adenopathy by size criteria. Aorta and inferior vena cava are normal in size. Miscellaneous: No significant ventral hernias. PELVIS: Genitourinary: Bladder appears unremarkable. Prostatomegaly. Miscellaneous: Small bilateral inguinal hernia. There is fluid in the hernia s acs, unchanged. No adenopathy. Bones: No suspicious bony lesions. No vertebral body compression fractures. IMPRESSION: 1. Prominent stool in the distal colon. 2. No diverticulitis. No significant diverticulosis. 3. There is fecalization within a loop of small bowel in the right abdomen. However, no significant dilatation or transition point to suggest significant obstruction. 4. Bilateral inguinal hernias. Dictated by: Anil Etienne M.D. on 05/04/2020 at 15:15 Approved by: Anil Etienne M.D. on 05/04/2020 at 15:27 MDM Narrative Medical decision making narrative: This is a 84-year-old gentleman who presents to ED with chief complain of constipation and no good bowel movement for last 5- 6 days. Patient has medical history significant for chronic constipation, hypothyroidism, BPH and he follows routine regimen for constipation. Despite 3 doses of enema and taking 8 oz of magnesium citrate, patient has not had good bowel movement. He denies recent diet, activity, medication changes. Patient denies constitutional symptoms. Abdomen soft to palpate with good bowel tones. Patient denies urinary retention. Rectum exam done but not able to feel any stools in rectal vault. Given the patient's age and recent bowel changes decided to obtain CT of abd/pelvis after consulting Dr. Bailey. Initial Xray test shows prominent stool in the left colon. Labs are elevated BUN/creatinine ratio of 25.7 and magnesium level of 2.5 otherwise unremarkable. Patient 500 cc of normal saline infusion. To rule out acute abdominal findings, CT of abd/pelvis ordered and negative findings except stools in distal colon and within a loop of small bowel in right abdomen without dilation or transition point to suggest significant obstructions or diverticulitis. Patient received mineral oral enema before leaving ED with some relief of discomfort and pressure with small soft amount of stool. Patient advised to take another dose of MiraLax or magnesium citrate tonight if he does not have good bowel movement when he goes to home. Return precautions discussed with patient and he verbalized understanding in agreement with the treatment plan. Advise continue with current regimen for constipation. <Leah Bailey, DO - Last Filed: 05/05/20 07:57> Lab Data Labs: Lab Results 05/04/20 05/04/20 05/04/20 Range/Units 13:56 13:56 13:56 WBC 6.4 (4.5-11.0) X10^3/uL RBC 4.30 L (4.5-5.9) X10^6/uL Hgb 13.8 (13.5-17.5) g/dL Hct 40.5 L (41-53) % MCV 94.2 (80-100) fL MCH 32.0 (26-34) PG MCHC 34.0 (30-36) % RDW 14.0 (11.6-14.8) % Plt Count 185 (150-400) X10^3/uL Neut % (Auto) 74.3 (50-75) % Lymph % (Auto) 14.6 L (25-40) % [place] % (Auto) 8.8 (3-14) % Eos % (Auto) 1.2 L (2-4) % Baso % (Auto) 1.1 (0-2) % Neut # (Auto) 4800 (1882-9647) /uL Lymph # (Auto) 900 L (2793-9902) /uL [place] # (Auto) 600 (0-900) /uL Eos # (Auto) 100 (0-450) /uL Baso # (Auto) 100 (0-100) /uL Plt Morphology Comment RBC Morphology Normal morphology Sodium 137 (137-145) mmol/L Potassium 4.1 (3.4-5.1) mmol/L Chloride 101 (98-107) mmol/L Carbon Dioxide 30 (22-32) mmol/L BUN 19 (9-20) mg/dL Creatinine 0.74 (0.66-1.25) mg/dL Estimated GFR > 60.0 (>60) mL/min BUN/Creatinine Ratio 25.7 H (6-22) Glucose 108 (80-110) mg/dL Calcium 8.9 (8.4-10.2) mg/dL Magnesium (1.6-2.3) mg/dL Total Bilirubin 0.3 (0.2-1.3) mg/dL AST 30 (17-59) IU/L ALT 22 (<50) IU/L Alkaline Phosphatase 63 (38-126) U/L Total Protein 6.9 (6.3-8.2) g/dL Albumin 3.9 (3.5-5.0) g/dL Globulin 3.0 (1.7-4.1) g/dL Albumin/Globulin Ratio 1.3 (1.0-2.8) TSH 0.81 (0.47-4.68) uIU/mL 05/04/20 Range/Units 13:56 WBC (4.5-11.0) X10^3/uL RBC (4.5-5.9) X10^6/uL Hgb (13.5-17.5) g/dL Hct (41-53) % MCV (80-100) fL MCH (26-34) PG MCHC (30-36) % RDW (11.6-14.8) % Plt Count (150-400) X10^3/uL Neut % (Auto) (50-75) % Lymph % (Auto) (25-40) % [place] % (Auto) (3-14) % Eos % (Auto) (2-4) % Baso % (Auto) (0-2) % Neut # (Auto) (6815-3587) /uL Lymph # (Auto) (8503-3543) /uL [place] # (Auto) (0-900) /uL Eos # (Auto) (0-450) /uL Baso # (Auto) (0-100) /uL Plt Morphology Comment RBC Morphology Sodium (137-145) mmol/L Potassium (3.4-5.1) mmol/L Chloride (98-107) mmol/L Carbon Dioxide (22-32) mmol/L BUN (9-20) mg/dL Creatinine (0.66-1.25) mg/dL Estimated GFR (>60) mL/min BUN/Creatinine Ratio (6-22) Glucose (80-110) mg/dL Calcium (8.4-10.2) mg/dL Magnesium 2.5 H (1.6-2.3) mg/dL Total Bilirubin (0.2-1.3) mg/dL AST (17-59) IU/L ALT (<50) IU/L Alkaline Phosphatase (38-126) U/L Total Protein (6.3-8.2) g/dL Albumin (3.5-5.0) g/dL Globulin (1.7-4.1) g/dL Albumin/Globulin Ratio (1.0-2.8) TSH (0.47-4.68) uIU/mL Discharge Plan Departure Patient Disposition: Home Clinical Impression: Constipation Qualifiers: Constipation type: unspecified constipation type Qualified Code(s): K59.00 - Constipation, unspecified Instructions: DI for Constipation Activity Restrictions/Additional Instructions: You have been diagnosed with [constipation. No big stool felt on rectum per physical exam. Adomen/Pelvis CT result no acute findings. Labs are unremarkable and TSH is within normal]. What to do: *Take your medications as directed. Please take another dose of Miralax tonight if you do not have a good BM in ED or at home. Increase fluid intake, fiber in your diet and keep active. *Follow up with your primary care provider in 2-3 days, call for an appointment. Let them know you were seen in the ED and that we asked you to be seen in follow up. *Return to ED if you have any new, worsening, or concerning symptoms, such as [abdominal pain, chest pain, breathing difficulty, unable to tolerate fluids, fever, or any acute concerns]. Prescriptions: No Action Refresh Optive 1-0.9 % drops,gel EYE-BOTH RF: 0 cholecalciferol (vitamin D3) 25 mcg (1,000 unit) capsule 25 mcg PO DAILY Qty: 90 RF: 3 levothyroxine 75 mcg tablet 75 mcg PO QDAY Qty: 90 RF: 3 memantine [Namenda] 5 mg tablet 5 mg PO BID Qty: 180 RF: 3 pravastatin 20 mg tablet See Rx Instructions .ROUTE .COMPLEX Qty: 45 RF: 3 tamsulosin 0.4 mg capsule 0.8 mg PO DAILY Qty: 180 RF: 3 lidocaine 5 % adhesive patch,medicated 1 patch topical DAILY PRN (Reason: pain) Qty: 15 RF: 0 Referrals: Lexx John MD [Primary Care Provider] - <Leah Bailey DO - Last Filed: 05/05/20 07:57> [facility] ED Attending Jimature Attestation: I was immediately available in the department for consultation. Documentation has been reviewed. I agree with assessment and plan.
[2020-05-04 14:06] LABS: Basophils Absolute Auto 100 /uL (0-100); Eosinophils Absolute Auto 100 /uL (0-450); Lymphocytes Absolute Auto 900 /uL (1100-4500); Monocytes Absolute Auto 600 /uL (0-900); Neutrophils Absolute Auto 4800 /uL (1500-7000)
[2020-05-04 14:09] LABS: Basophils Percent Auto 1.1 % (0-2); Eosinophils Percent Auto 1.2 % (2-4); Hematocrit 40.5 % (41-53); Hemoglobin 13.8 g/dL (13.5-17.5); Lymphocytes Percent Auto 14.6 % (25-40); Mean Corpuscular Volume 94.2 fL (80-100); Monocytes Percent Auto 8.8 % (3-14); Neutrophils Percent Auto 74.3 % (50-75); Platelet Count 185 X10^3/uL (150-400); White Blood Cell Count 6.4 X10^3/uL (4.5-11.0)
[2020-05-04 14:18] LABS: Add Manual Diff / Slide Review SLIDE REVIEW
[2020-05-04 14:22] LABS: Alanine Aminotransferase 22 IU/L (<50); Albumin 3.9 g/dL (3.5-5.0); Albumin Globulin Ratio 1.3 (1.0-2.8); Alkaline Phosphatase 63 U/L (38-126); Aspartate Aminotransferase 30 IU/L (17-59); BUN Creatinine Ratio 25.7 (6-22); Bilirubin Total 0.3 mg/dL (0.2-1.3); Blood Urea Nitrogen 19 mg/dL (9-20); Calcium 8.9 mg/dL (8.4-10.2); Carbon Dioxide 30 mmol/L (22-32); Chloride 101 mmol/L (98-107); Estimated Glomerular Filt Rate > 60.0 mL/min (>60); Glucose 108 mg/dL (80-110); HEMOLYSIS < 15 (0-50); Potassium 4.1 mmol/L (3.4-5.1); Sodium 137 mmol/L (137-145); Total Protein 6.9 g/dL (6.3-8.2)
[2020-05-04 14:23] LABS: Magnesium 2.5 mg/dL (1.6-2.3)
[2020-05-04 14:34] LABS: RBC Morphology Normal Morphology
--- NOTE | 2020-05-04 14:38 | DI.CT.S_ITS ---
PROCEDURE: CT ABDOMEN PELVIS W CON INDICATIONS: bowel habit changes, mass? diverticulitis? TECHNIQUE: After the administration of intravenous contrast, 5 mm thick sections acquired from the diaphragm to the symphysis. 5 mm coronal and sagittal reformats were acquired. For radiation dose reduction, the following was used: automated exposure control, adjustment of mA and/or kV according to patient size. COMPARISON: [facility], CT, CT ABDOMEN PELVIS W CON, 07/25/2018, 10:36. [facility], CT, CT ABDOMEN PELVIS W CON, 11/29/2019, 11:10. FINDINGS: Image quality: Excellent. ABDOMEN: Lung bases: Mild scarring or atelectasis, unchanged. No pleural effusion. Heart size is normal. Solid organs: Liver is normal in size. Small hypodensities in the liver are unchanged since at least 07/25/2018. Gallbladder is unremarkable. Biliary system is non dilated. Pancreas enhances normally. Spleen is normal in size and enhancement. No adrenal nodules. Kidneys demonstrate normal size and enhancement, without hydronephrosis. Small simple cyst in left kidney. A few cortical hypodensities which are too small to further characterize. Peritoneum and bowel: No small bowel obstruction demonstrated. There is fecalization within small bowel in the right lower quadrant, (2/53). Prominent stool in the colon. No significant diverticulosis. The appendix is normal. No free fluid or air. Nodes and vessels: No retroperitoneal or mesenteric adenopathy by size criteria. Aorta and inferior vena cava are normal in size. Miscellaneous: No significant ventral hernias. PELVIS: Genitourinary: Bladder appears unremarkable. Prostatomegaly. Miscellaneous: Small bilateral inguinal hernia. There is fluid in the hernia sacs, unchanged. No adenopathy. Bones: No suspicious bony lesions. No vertebral body compression fractures. IMPRESSION: 1. Prominent stool in the distal colon. 2. No diverticulitis. No significant diverticulosis. 3. There is fecalization within a loop of small bowel in the right abdomen. However, no significant dilatation or transition point to suggest significant obstruction. 4. Bilateral inguinal hernias. Dictated by: Anil Etienne M.D. on 05/04/2020 at 15:15 Approved by: Anil Etienne M.D. on 05/04/2020 at 15:27
[2020-05-04] MEDS: SODIUM CHLORIDE 0.9% 500 ML 1000 ML IV (14:52)
[2020-05-04 14:53] LABS: TSH w/ Reflex to FT4 0.81 uIU/mL (0.47-4.68)
[2020-05-04] MEDS: MINERAL OIL 1 EACH ENEMA PR (16:57)
--- NOTE | 2020-05-04 17:20 | PC.NURSE ---
Patient had moderate amount of stool after enema. felt relief of pressure at rectum
== END 2020-05-04 17:29 | disposition home or self-care (01) ==
PROVIDERS: Emergency Provider Nurse Practitioner Family; PCP Internal Medicine
DX: K59.00 Constipation, unspecified (principal)
CPT/HCPCS: 36415; 74019; 74177; 80053; 83735; 84443; 85025; 96360; 99284; Q9967

== ENCOUNTER → 2020-09-10 13:35 | Outpatient (CLI) | payer OTHER, SELFPAY ==
--- NOTE | 2020-09-10 | DI.ECHO.S_ITS ---
[place] [facility]---------+ [facility] +---------+ : : [address] : : : : [id number] : : : : Phone: [phone]+ Echocardiogram Report + + :Name: MIKE LEWIS Study Date: 09/10/2020 Height: 68 in : :[facility] ReadingLocation: Weight: 127 lb : : Gender: Male BSA: 1.7 m2 : :: 1935 Age: 84 yrs BP: 111/66 mmHg: :Reason For Study: MITRAL PROLAPSE : :Ordering Physician: BERNARD, : :SARAH Performed By: Teresita Gonzalez : :Referring: SARAH SCHULTZ : + + Interpretation Summary 1) Normal left ventricular thickness and size with low normal systolic function (EF 50-55%). 2) Septal motion is consistent with conduction abnormality. 3) Mildly enlarged right ventricle with mildly reduced function. 4) Bileaflet mitral valve prolapse with mild to moderate late systolic posteriorly directed mitral regurgitation. 5) Compared to the Echo done 07/19/2019, septal dyssynchronous contaction is present. Procedure: A two-dimensional transthoracic echocardiogram with color flow and Doppler was performed. The study quality was technically adequate. Comparison is made with the echocardiogram of 07/19/2019. The patient has a paced rhythm. The heart rate ranged between 56-64 bpm during the study. Left Ventricle: The left ventricle is normal in size and wall thickness. The ejection fraction is estimated to be 50-55%. Septal motion is consistent with conduction abnormality. Right Ventricle: The right ventricle is mildly dilated. Right ventricular systolic function is mildly reduced. Atria: The left atrial size is normal. The right atrium is moderately dilated. There is no Doppler evidence for an interatrial shunt. Mitral Valve: The mitral valve leaflets appear mildly thickened, but open well. There is mild mitral valve prolapse. There is prolapse of the posterior mitral valve leaflet(s). There is prolapse of the anterior mitral valve leaflet. There is mild to moderate mitral regurgitation. The mitral regurgitant jet is eccentrically directed. Aortic Valve: The aortic valve is trileaflet. The aortic valve opens well. The aortic valve is slightly calcified. There is no aortic valve stenosis. No aortic regurgitation is present. Tricuspid Valve: The tricuspid valve is normal in structure and function. Pulmonary artery pressures cannot be estimated because of the lack of a measurable TR jet velocity but the IVC suggests a CVP of around 3 mmHg. There is trace tricuspid regurgitation. Pulmonic Valve: The pulmonic valve is not well visualized. There is trace pulmonic regurgitation. Great Vessels: The aortic root is normal size. The ascending aorta is mildly enlarged. The IVC is of normal diameter and collapses greater than 50% with a sniff. This suggests a low right atrial pressure of 3 mm Hg. Pericardium/ Pleura There is no pericardial effusion. There is no pleural effusion. MMode/2D Measurements & Calculations LVIDd: 4.2 cm LVOT diam: 2.3 cm LVIDs: 2.9 cm Ao root diam: 3.4 cm FS: 32.9 % asc Aorta Diam: 3.4 cm IVSd: 0.64 cm Ao Arch Diam (Prox Trans): 3.0 cm LVPWd: 0.79 cm LV núñez. diameter/BSA (cm/m^2): 2.5 LV sys. diameter/BSA (cm/m^2): 1.7 LA A2 area: 21.1 cm2 RA long axis: 5.3 cm LA A4 area: 12.6 cm2 RA area: 22.0 cm2 LA length (vol): 4.7 cm RA vol: 77.5 ml LA vol: 47.9 ml RA : 46.0 ml/m2 LA vol index: 28.4 ml/m2 IVC diam: 1.3 cm RVD1 (basal): 4.2 cm TAPSE: 2.2 cm Doppler Measurements & Calculations Ao V2 max: 163.9 cm/sec LVOT Max Tommie: 96.3 cm/sec Ao V2 mean: 116.1 cm/sec LV V1 max P.7 mmHg Ao max P.7 mmHg LV V1 VTI: 19.4 cm Ao mean P.9 mmHg ROSA(I,D): 2.3 cm2 Ao V2 VTI: 35.8 cm ROSA(V,D): 2.5 cm2 sev ratio: 0.54 ROSA indexed to BSA (cm^2/m^2): 1.3 MV E max tommie: 61.8 cm/sec PA V2 max: 91.7 cm/sec MV A max tommie: 52.9 cm/sec PA V2 mean: 62.3 cm/sec MV E/A: 1.2 PA mean P.8 mmHg Med Peak E' Tommie: 7.4 cm/sec PA pr(Accel): 39.6 mmHg E/E' med: 8.4 Lat Peak E' Tommie: 9.9 cm/sec E/E' lat: 6.2 E/e' average: 7.3 MV dec time: 0.24 sec SV(OT): 81.4 ml Reading Physician:04:26 PM
== END ==
PROVIDERS: PCP Internal Medicine; Referring Provider Internal Medicine Cardiovascular Disease; Visit Provider Internal Medicine Cardiovascular Disease
DX: I34.1 Nonrheumatic mitral (valve) prolapse (principal); I34.0 Nonrheumatic mitral (valve) insufficiency; I77.89 Other specified disorders of arteries and arterioles
CPT/HCPCS: 93306

== ENCOUNTER → 2020-10-16 10:47 | Outpatient (CLI) | payer OTHER, SELFPAY ==
--- NOTE | 2020-10-16 10:48 | DI.RAD.S_ITS ---
PROCEDURE: XR ABDOMEN MIN 2V INDICATIONS: left abdominal pain TECHNIQUE: 2 views of the abdomen were acquired. COMPARISON: [facility], , XR ABDOMEN MIN 2V, 05/04/2020, 13:16. FINDINGS: Surgical changes and devices: None. Bowel: Moderate stool. No definite transition point. No free air. Soft tissues: No masses; visualized solid organ contours appear normal in size. No suspicious abdominal calcifications. Bones: No suspicious bony abnormalities. IMPRESSION: Moderate stool. No specific transition point seen at this time although if the patient's symptoms do not improve, continued surveillance with abdominal series radiographs could be performed. Dictated by: Calvin Galvan M.D. on 10/16/2020 at 15:17 Approved by: Calvin Galvan M.D. on 10/16/2020 at 15:18
== END ==
PROVIDERS: PCP Internal Medicine; Referring Provider Internal Medicine; Visit Provider Internal Medicine
DX: R10.9 Unspecified abdominal pain (principal)
CPT/HCPCS: 74019

== ENCOUNTER → 2021-01-20 06:43 | Outpatient (CLI) | payer OTHER, SELFPAY ==
[2021-01-20 08:09] LABS: Alanine Aminotransferase 15 IU/L (<50); Albumin 4.3 g/dL (3.5-5.0); Albumin Globulin Ratio 1.4 (1.0-2.8); Alkaline Phosphatase 64 U/L (38-126); Aspartate Aminotransferase 24 IU/L (17-59); BUN Creatinine Ratio 25.6 (6-22); Bilirubin Total 0.6 mg/dL (0.2-1.3); Blood Urea Nitrogen 22 mg/dL (9-20); Calcium 9.4 mg/dL (8.4-10.2); Carbon Dioxide 33 mmol/L (22-32); Chloride 101 mmol/L (98-107); Cholesterol 160 mg/dL (140-199); Estimated Glomerular Filt Rate > 60.0 mL/min (>60); Glucose 93 mg/dL (80-110); HDL Cholesterol 56 mg/dL (40-60); HEMOLYSIS < 15 (0-50); LDL Cholesterol Calculated 91 mg/dL (<100); Sodium 139 mmol/L (137-145); Total Protein 7.3 g/dL (6.3-8.2); Triglycerides 63 mg/dL (35-150)
[2021-01-20 08:26] LABS: Free T4, Direct Thyroxine 1.32 ng/dL (0.78-2.19)
== END ==
PROVIDERS: PCP Internal Medicine; Referring Provider Internal Medicine; Visit Provider Internal Medicine
DX: E78.2 Mixed hyperlipidemia (principal); E03.9 Hypothyroidism, unspecified
CPT/HCPCS: 36415; 80053; 80061; 84439; 84443

== ENCOUNTER 2021-03-20 09:21 | Emergency (ER) | payer OTHER, SELFPAY ==
[2021-03-20 09:45] VITALS: BP 109/69; PULSE 75; RESP 15; TEMP 36.1; O2SAT 98; BMI 20.3
--- NOTE | 2021-03-20 10:11 | ED.ABDPAIN ---
HPI - Abdominal Pain General Chief Complaint: Abdominal Pain Stated Complaint: impacted stool, can't have a bowel movement Time Seen by Provider: 03/20/21 10:01 Source: patient Mode of arrival: Ambulatory Limitations: altered mental status History of Present Illness HPI narrative: The patient does not give detailed medical history. He complains of mild abdominal discomfort, inability to defecate this morning. He tried to disimpact himself unsuccessfully. He has no history of chronic bowel problems. He does have a history of BPH. He has no history suggesting urinary retention. He denies URI symptoms. He has no headache. He denies sore throat. He has no chest discomfort, cough or dyspnea. His appetite is okay. He has no nausea or vomiting. Related Data Home Medications Medication Instructions Recorded Confirmed carboxymethylcellulose 1 EYE-BOTH 07/25/19 01/19/21 %-glycerin 0.9 % eye gel drops (Refresh Optive) tamsulosin 0.4 mg capsule 0.8 mg PO QPM cap 01/19/21 Previous Rx's Medication Instructions Recorded cholecalciferol (vitamin D3) 25 25 mcg PO DAILY #90 cap 12/26/19 mcg (1,000 unit) capsule memantine 5 mg tablet (Namenda) 5 mg PO BID #180 tab 12/26/20 pravastatin 20 mg tablet See Rx Instructions .ROUTE 12/30/20 .COMPLEX #45 tablet levothyroxine 75 mcg tablet 75 mcg PO QDAY #90 tab 01/07/21 docusate sodium 100 mg capsule 100 mg PO 1-2XD #30 cap 03/20/21 (Colace) Allergies Allergy/AdvReac Type Severity Reaction Status Date / Time No Known Drug Allergies Allergy Unknown Verified 03/20/21 09:45 [NO KNOWN DRUG ALLERGIES] Review of Systems Review of Systems ROS Unobtainable: All systems reviewed & are unremarkable except as noted in HPI and below Patient History Medical History (Updated 03/20/21 @ 10:31 by Saulo Solitario MD) Actinic keratosis (1993) BPH w urinary obs/LUTS Chronic back pain (1969) Excessive daytime sleepiness Head ache Hearing impairment (1997) Hemorrhoids (1969) History of basal cell carcinoma (BCC) of skin (01/20/17) History of SCC (squamous cell carcinoma) of skin (1987) Hyperthyroidism (2012) Memory impairment Mitral regurgitation Mitral valve prolapse Obstructive sleep apnea of adult Skin cancer (1974) Surgical History Anesthesia History of cataract removal with insertion of prosthetic lens (2012) History of squamous cell carcinoma excision (2013) History of squamous cell carcinoma excision (1987) Status post hernia repair (1979) Status post hernia repair (1987) Status post Mohs surgery for basal cell carcinoma (03/09/17) Status post tonsillectomy and adenoidectomy (1941) Family History Brother Age: 76 Skin cancer Father Metastatic cancer to brain Respiratory failure Mother Cancer Alzheimer's disease Aspiration pneumonia Sister Age: 84 Alzheimer's disease Social History marital status: (to Virgen, lives in [place]) household members: spouse lives independently: Yes caregiver/support person: Yes (Virgen reminds me when I forget) Smoking Status: Former smoker alcohol intake: never substance use type: does not use Smoking Status: Former smoker alcohol intake frequency: other Substance Use Type: does not use Exam Initial Vital Signs Initial Vital Signs: Vital Signs Temperature 97.0 F L 03/20/21 09:45 Pulse Rate 75 03/20/21 09:45 Respiratory Rate 15 03/20/21 09:45 Blood Pressure 109/69 03/20/21 09:45 Pulse Oximetry 98 03/20/21 09:45 Const General: cooperative and comfortable HENMT Head: normal to inspection and normocephalic Resp Auscultation: clear to auscultation bilaterally Cardio Rate: regular rate Rhythm: regular rhythm Heart Sounds: S1 normal, S2 normal, no click, no murmurs and no rubs GI Inspection: normal to inspection Palpation: soft, No mass and No tender Auscultation: normal bowel sounds Rectal Exam: visual inspection normal and fecal impaction (Digitally cleared during the exam.) Course Course Course Narrative: The fecal impaction was digitally cleared. Stool was obviously ascending from the sigmoid colon following the disimpaction. And enema was given to assist him. He was not able to defecate following the enema, yet. He was given a dose of Colace here in the ER prior to discharge. Orders Ordered: Discontinued Medications Docusate Sodium (Docusate 100 Mg Capsule) 200 mg PO NOW ONE Stop: 03/20/21 10:23 Last Admin: 03/20/21 10:44 Dose: 200 mg Documented by: Vital Signs Vital signs: Vital Signs - 8 hr 03/20/21 09:45 Temperature 97.0 F L Pulse Rate 75 Respiratory Rate 15 Blood Pressure 109/69 Pulse Oximetry 98 Discharge Plan Departure Patient Disposition: Home Clinical Impression: Constipation Instructions: DI for Constipation Activity Restrictions/Additional Instructions: Be sure you are drinking plenty of water every day. Colace 1-2 tablets daily to help with regular bowel movements. The prescription has been forwarded to the [facility]. Follow-up with your doctor if symptoms persist, return here as necessary. Prescriptions: New docusate sodium [Colace] 100 mg capsule 100 mg PO 1-2XD Qty: 30 1RF No Action Refresh Optive 1-0.9 % drops,gel EYE-BOTH 0RF cholecalciferol (vitamin D3) 25 mcg (1,000 unit) capsule 25 mcg PO DAILY Qty: 90 3RF memantine [Namenda] 5 mg tablet 5 mg PO BID Qty: 180 3RF pravastatin 20 mg tablet See Rx Instructions .ROUTE .COMPLEX Qty: 45 3RF Dose Instruction: Take 0.5 tablets (10 mg) by mouth at bedtime Rx Instructions: Take 0.5 tablets (10 mg) by mouth at bedtime levothyroxine 75 mcg tablet 75 mcg PO QDAY Qty: 90 3RF tamsulosin 0.4 mg capsule 0.8 mg PO QPM 0RF Referrals: Lexx John MD [Primary Care Provider] -
[2021-03-20] MEDS: DOCUSATE 100 MG CAPSULE 200 MG PO (10:44)
[2021-03-20 11:03] VITALS: BP 108/64; PULSE 76; RESP 20; TEMP 36.6; O2SAT 96
== END 2021-03-20 11:04 | disposition home or self-care (01) ==
PROVIDERS: Emergency Provider Emergency Medicine; PCP Internal Medicine
DX: K59.00 Constipation, unspecified (principal)
CPT/HCPCS: 99283

== ENCOUNTER → 2021-09-25 14:56 | Outpatient (CLI) | payer OTHER, SELFPAY ==
--- NOTE | 2021-09-25 | DI.ECHO.S_ITS ---
[place] +---------+ [facility] +---------+ : : [address] : : : : [id number] : : : : Phone: [phone] +---------+ Echocardiogram Report + + :Name: MIKE LEWIS Study Date: 09/25/2021 Height: 68 in : :[facility] ReadingLocation: Weight: 127 lb : : Gender: Male BSA: 1.7 m2 : :: 1935 Age: 85 yrs BP: 120/57 mmHg: :Reason For Study: MVP : : Performed By: Jared Bird : :Referring: SARAH SCHULTZ : + + Interpretation Summary Limited Echo: 1) Normal left ventricular thickness and size with low normal systolic function (EF 50-55%). 2) Bileaflet mild mitral valve prolapse with mild to moderate late systolic posteriorly directed mitral regurgitation. 5) Compared to the Echo done 09/10/2020, no significant change. Procedure: A limited echocardiogram was performed to assess MVP. The study quality was technically good. Comparison is made with the echocardiogram of 09/10/20. The patient was in normal sinus rhythm during the exam. Left Ventricle: The left ventricle is normal in size and wall thickness. Mitral Valve: There is mild mitral valve prolapse. mild to moderate late systolic posteriorly directed mitral regurgitation. MMode/2D Measurements & Calculations LVIDd: 5.0 cm LVIDs: 3.2 cm FS: 35.6 % EPSS: 0.34 cm IVSd: 0.63 cm LVPWd: 0.51 cm LV núñez. diameter/BSA (cm/m^2): 2.9 LV sys. diameter/BSA (cm/m^2): 1.9 Doppler Measurements & Calculations MR PISA: 1.9 cm2 MR flow rate: 79.8 cm3/sec MR PISA radius: 0.54 cm Reading Physician:10:21 AM
== END ==
PROVIDERS: PCP Internal Medicine; Referring Provider Internal Medicine Cardiovascular Disease; Visit Provider Internal Medicine Cardiovascular Disease
DX: I34.1 Nonrheumatic mitral (valve) prolapse (principal); I34.0 Nonrheumatic mitral (valve) insufficiency
CPT/HCPCS: 93307

== ENCOUNTER → 2021-10-28 09:46 | Outpatient (CLI) | payer OTHER, SELFPAY ==
--- NOTE | 2021-10-28 09:50 | DI.RAD.S_ITS ---
PROCEDURE: XR KUB INDICATIONS: Bladder calculus TECHNIQUE: One view of the abdomen acquired. COMPARISON: [facility], CR, XR ABDOMEN MIN 2V, 10/16/2020, 11:07. [facility], CR, KUB XRAY (1 VIEW ABDOMEN), 10/12/2016, 12:02. FINDINGS: Surgical changes and devices: None. Bowel: Bowel gas pattern is nonobstructive. Soft tissues: Multiple small calcifications project over the pelvis, no overt change compared to prior abdominal radiograph. Bones: No suspicious bony lesions. IMPRESSION: Multiple calcifications project over the pelvis, likely phleboliths but bladder stones are difficult to exclude. CT could be obtained for further evaluation if indicated. Dictated by: Gautam Dunlap M.D. on 10/28/2021 at 10:40 Approved by: Gautam Dunlap M.D. on 10/28/2021 at 10:43
== END ==
PROVIDERS: PCP Internal Medicine; Referring Provider Specialist; Visit Provider Specialist
DX: N21.0 Calculus in bladder (principal)
CPT/HCPCS: 74018

== ENCOUNTER → 2021-12-18 15:19 | Outpatient (CLI) | payer OTHER, SELFPAY ==
[2021-12-18 15:40] LABS: COVID19 -Nasal RAPID Negative (Negative)
== END ==
PROVIDERS: PCP Internal Medicine; Visit Provider Urology
DX: Z20.822 Contact with and (suspected) exposure to COVID-19 (principal)
CPT/HCPCS: 87635; C9803

== ENCOUNTER 2021-12-21 06:26 | Day surgery (SDC) | payer OTHER, SELFPAY ==
[2021-12-16 10:51] VITALS: BMI 19.4
[2021-12-21] VITALS (9 sets, daily range): BP systolic 97–141; BP diastolic 51–73; PULSE 47–61; RESP 10–16; TEMP 36.2–36.6; O2SAT 96–100; BMI 19.4
--- NOTE | 2021-12-21 07:36 | PM.PREOP ---
Pre-operative Note COVID-19 COVID-19 status: Negative Result date/Date tested (Pos, Neg/Pending): 12/18/21 Criteria for continued procedure: Non-surgical alternatives not available or appropriate per current SOC Interval Note History & Physical reviewed/Exam performed by Physician: Yes Changes to H&P: No
[2021-12-21] MEDS: LACTATED RINGERS 1,000 ML 42 ML IV (07:44)
[2021-12-21] MEDS: CEFAZOLIN 2 GM/100 ML PREMIX 100 ML IV (07:57)
--- NOTE | 2021-12-21 08:09 | SUR.OPER ---
Lithotomy on padded OR bed, head on pillow, arms secured on padded arm boards at <90 degrees abduction. Legs secured in padded yellow fins stirrups.
--- NOTE | 2021-12-21 08:22 | P.OP_ITS ---
Procedure & Clinicians Procedure: Cystoscopy with removal of prostatic calcifications. Same procedure as scheduled: Yes Indications: This 86-year-old male presented with complaints of microscopic hematuria and through the workup was found to have some stones within the prostatic fossa. The patient does have a history of Transurethral resection of prostate and I believe bladder calculi. These may be entrapped or in case stones that bear removal. The patient presents this time for the above procedure. Surgeon: Zaid Lindsay Click Yes if Unassisted: Yes Anesthesia Type: General Operative Notes Findings: Findings: Urethra normal to the mid bulbar urethra where there was a large caliber strictures which easily accepted the 21 Green[place]ic scope. Prostatic fossa is resected and uneven with some mild nodular regrowth posteriorly on the patient's right there are a number of calcifications in trapped by some prostati c webs or bands. These are removed in their entirety. The ureteral orifices are normal position with clear efflux. There is severe trabeculation and cellules. There were no mucosal lesions that would be indicative of malignancy or were in any way worrisome. Again the prostatic fossa was widely patent and resected with a small amount of nodular regrowth. Closure Type: not applicable Specimen(s): other (Prostatic calcifications for compositional analysis) Estimated Blood Loss (mL): 0 Blood products transfused: none Procedure in detail: Procedure in detail: After informed consent was obtained, the patient was identified and brought to the operative suite. Patient was then placed in a supine position on the operative table were antibiotics were administered and anesthesia was induced and maintained. After ensuring an adequate level of anes thesia the patient was then transitioned to the lithotomy position. The patient was then prepped, draped and prepared for Transurethral procedure. Time-out was held and with this completed and ensuring an adequate level of anesthesia 21 Greenlandic cystoscope was passed through the urethra prostate and into the bladder where cystoscopy was performed. The stones were then once again visualized and a biopsy/grasping forceps was inserted and the overlying bands of prostate tissue were resected with the biopsy forceps. The stones were then grasped in turn and dropped into the bladder until all stones were evacuated. Then using the cystoscope the stones were washed out of the bladder collected to be sent for compositional analysis. There was a small amount of ooze and so a Bugbee electrode was inserted and the bleeding controlled and hemostasis achieved. With this done ensuring no further stones in the bladder the bladder was drained the scope was removed, the patient was awakened and taken to the postanesthesia care unit having tolerated the procedure well patient will follow up my office in approximately 14 days. There were no complications Complications: none Post-operative Condition: stable Disposition: PACU Plan for aftercare: Patient to follow-up my office in 14 days
--- NOTE | 2021-12-21 08:39 | SUR.PHASEI ---
Received to PACU after general anesthesia. Airway patent, self maintained. Report from HARMAN Pierre and Dr Cox. Bilat hearing aids in place.
[2021-12-29 09:36] LABS: CaHPO4 (Brushite) 20 % (.); Hydroxyapatite 80 % (.)
== END 2021-12-21 09:50 | disposition home or self-care (01) ==
PROVIDERS: PCP Internal Medicine; Referring Provider Urology; Visit Provider Urology
PROC: (CPT 52310; principal; 2021-12-21 07:45)
DX: N42.0 Calculus of prostate (principal); N13.8 Other obstructive and reflux uropathy; N40.1 Benign prostatic hyperplasia with lower urinary tract symptoms; Z98.890 Other specified postprocedural states; Z90.79 Acquired absence of other genital organ(s)
CPT/HCPCS: 52310; 82365; 82962; J0690; J1100; J2405; J2704; J3010

== ENCOUNTER 2022-01-14 09:48 | Inpatient (IN) | payer OTHER, SELFPAY ==
[2022-01-14] VITALS (17 sets, daily range): BP systolic 80–122; BP diastolic 42–64; PULSE 55–91; RESP 18–28; TEMP 36.6–37.9; O2SAT 92–96
--- NOTE | 2022-01-14 10:02 | DI.RAD.S_ITS ---
PROCEDURE: XR CHEST 1V INDICATIONS: weakness TECHNIQUE: One view of the chest was acquired. COMPARISON: [facility], , CHEST 2 VIEW, 11/07/2013, 11:58. FINDINGS: Surgical changes and devices: None. Lungs and pleura: Right basilar opacity. Mediastinum: Mediastinal contours appear normal. Heart size is enlarged. Bones and chest wall: No suspicious bony lesions. Overlying soft tissues appear unremarkable. IMPRESSION: Right basilar opacity most suggestive of developing pneumonia. Dictated by: Amy Marie M.D. on 01/14/2022 at 10:47 Approved by: Amy Marie M.D. on 01/14/2022 at 10:47
[2022-01-14 10:10] LABS: Add Manual Diff / Slide Review NO; Basophils Absolute Auto 100 /uL (0-100); Basophils Percent Auto 0.5 % (0-2); Eosinophils Absolute Auto 0 /uL (0-450); Eosinophils Percent Auto 0.2 % (2-4); Hematocrit 39.1 % (41-53); Hemoglobin 12.9 g/dL (13.5-17.5); Lymphocytes Absolute Auto 400 /uL (1100-4500); Mean Corpuscular HGB Conc 32.9 % (30-36); Mean Corpuscular Hemoglobin 30.9 PG (26-34); Mean Corpuscular Volume 93.8 fL (80-100); Monocytes Absolute Auto 900 /uL (0-900); Monocytes Percent Auto 4.7 % (3-14); Neutrophils Absolute Auto 17700 /uL (1500-7000); Neutrophils Percent Auto 92.6 % (50-75); Platelet Count 174 X10^3/uL (150-400); Red Blood Cell Count 4.17 X10^6/uL (4.5-5.9); Red Cell Distribution Width 13.4 % (11.6-14.8); White Blood Cell Count 19.1 X10^3/uL (4.5-11.0)
[2022-01-14 10:18] LABS: Alanine Aminotransferase 18 IU/L (<50); Albumin 3.9 g/dL (3.5-5.0); Albumin Globulin Ratio 1.3 (1.0-2.8); Alkaline Phosphatase 70 U/L (38-126); Aspartate Aminotransferase 25 IU/L (17-59); BUN Creatinine Ratio 29.3 (6-22); Bilirubin Total 1.2 mg/dL (0.2-1.3); Blood Urea Nitrogen 22 mg/dL (9-20); Calcium 8.6 mg/dL (8.4-10.2); Carbon Dioxide 27 mmol/L (22-32); Chloride 98 mmol/L (98-107); Estimated Glomerular Filt Rate > 60 mL/min (>60); Globulin 3.1 g/dL (1.7-4.1); Glucose 90 mg/dL (80-110); HEMOLYSIS < 15 (0-50); Lactate (Lactic Acid) 1.1 mmol/L (0.7-2.1); Potassium 3.5 mmol/L (3.4-5.1); Sodium 132 mmol/L (137-145)
[2022-01-14 10:31] LABS: Troponin I < 0.012 ng/mL (0.01-0.034)
[2022-01-14 12:26] LABS: INR 1.2 (0.9-1.3); Prothrombin Time 14.3 SECONDS (10.1-12.7)
--- NOTE | 2022-01-14 12:28 | ED_ITS ---
HPI - Sepsis <VÍCTOR Mueller - Last Filed: 01/14/22 14:47> General Chief Complaint: Weakness Mode of arrival: EMS Source: EMS Evaluation Sepsis Screen: No Definite Risk Sepsis Infection Criteria Present: Suspected New Infection Narrative: This is an 86-year-old gentleman who presents to the emergency department today via EMS with altered mental status, his came home from admission from the hospital today with pneumonia and patient received his pneumonia vaccine yesterday. Patient's son checked on the patient and noticed that he was not able to make sense goal speech, at baseline he has memory impairment and speech delay but not this severe. Patient has a history of hyperlipidemia, hypothyroidism, BPH with TURP, mitral valve prolapse with mitral regurg, and hearing impairment. He is tachypneic, in route to the hospital he was placed on 1 L nasal cannula for O2 low 90s. Patient has a cough, denies abdominal pain, denies dysuria or urinary retention but is altered. Generally weak without focal weakness, he is tachypneic, His primary care provider is Dr. John. Review of Systems <VÍCTOR Mueller - Last Filed: 01/14/22 14:47> Review of Systems Narrative: Review of systems is negative for acute abnormalities unless otherwise noted in HPI Patient History <VÍCTOR Mueller - Last Filed: 01/14/22 14:47> Medical History Actinic keratosis (1993) BPH w urinary obs/LUTS Chronic back pain (1969) Excessive daytime sleepiness Head ache Hearing impairment (1997) Hemorrhoids (1969) History of basal cell carcinoma (BCC) of skin (01/20/17) History of SCC (squamous cell carcinoma) of skin (1987) Hyperthyroidism (2012) Memory impairment Microscopic hematuria Mild cognitive impairment Mitral regurgitation Mitral valve prolapse Obstructive sleep apnea of adult Skin cancer (1974) 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 Surgical History Anesthesia History of cataract removal with insertion of prosthetic lens (2012) History of squamous cell carcinoma excision (2013) History of squamous cell carcinoma excision (1987) History of transurethral resection of prostate Hx of circumcision Hx of vasectomy Status post hernia repair (1979) Status post hernia repair (1987) Status post Mohs surgery for basal cell carcinoma (03/09/17) Status post tonsillectomy and adenoidectomy (1941) Family History Brother Age: 76 Skin cancer Father Metastatic cancer to brain Respiratory failure Mother Cancer Alzheimer's disease Aspiration pneumonia Sister Age: 84 Alzheimer's disease Social History marital status: (to Virgen, lives in [place]) number of children: 3 household members: spouse lives independently: Yes caregiver/support person: Yes (Virgen reminds me when I forget) Smoking Status: Former smoker alcohol intake: never substance use type: does not use caffeine: Yes Type(s) of exercise: regular exercise frequency: daily Smoking Status: Former smoker alcohol intake frequency: other Substance Use Type: does not use Exam <JOEY MuellerP - Last Filed: 01/14/22 14:47> Narrative Exam Narrative: Reviewed vitals signs and nursing notes. General: cooperative, awake, hard of hearing, elderly and appears frail, tachypneic and tired appearing HEENT: symmetrical facial expressions, dry mucous membranes Cardiovascular: regular rate and rhythm, no peripheral edema, warm extremities Respiratory: Cough, tachypneic, right lower lobe with crackles anterior and posteriorly, without wheezing, stridor, or retractions. O2 sats 88-90% on room air, 1 L nasal cannula with O2 sats 95%, diminished breath sounds to right middle lobe GI: abdomen soft, nontender to palpation, nondistended, without masses, rebound tenderness or exquisite tenderness with exam. MSK: moves all extremities, neurovascularly intact, no weakness, normal tone Skin: brisk capillary refill, without pallor or erythema Neuro: Clear speech, A&O x1-2, pleasantly confused generally weak clear speech Psych: mental status is grossly normal, congruent mood, normal affect, pleasant and cooperative Initial Vital Signs Initial Vital Signs: Vital Signs Temperature 99.9 F H 01/14/22 09:53 Pulse Rate 80 01/14/22 09:53 Respiratory Rate 25 H 01/14/22 09:53 Blood Pressure 122/58 L 01/14/22 09:53 Pulse Oximetry 92 01/14/22 09:53 Oxygen Delivery Method 01/14/22 09:53 <Lula Thomas DO - Last Filed: 01/14/22 19:13> Initial Vital Signs Initial Vital Signs: Vital Signs Temperature 99.9 F H 01/14/22 09:53 Pulse Rate 80 01/14/22 09:53 Respiratory Rate 25 H 01/14/22 09:53 Blood Pressure 122/58 L 01/14/22 09:53 Pulse Oximetry 92 01/14/22 09:53 Oxygen Delivery Method 01/14/22 09:53 Scores <VÍCTOR Mueller - Last Filed: 01/14/22 14:47> CURB-65 Confusion: Yes BUN >19mg/dL (>7mmol/L): Yes Respiratory rate greater or equal to 30: No SBP <90mmHg or DBP less or equal to 60mmHg: No Age 65 or Older: Yes CURB-65 Total: 3 Score 0-1 Outpatient care, Score 2 Inpt vs. Obs, Score 3 or over Inpt admit with ICU for score of 4-5 qSOFA Altered Mental Status (GCS <15): Yes Respiratory rate greater than/equal to 22: Yes Systolic blood pressure less than or equal to 100: Yes qSOFA Total: 3 0-1 Not High Risk 1-3 High risk <Lula Thomas DO - Last Filed: 01/14/22 19:13> CURB-65 CURB-65 Total: 3 qSOFA qSOFA Total: 3 Course <VÍCTOR Mueller - Last Filed: 01/14/22 14:47> Orders Ordered: ED Orders 01/14/22 10:13 EKG-12 Lead Stat 01/14/22 13:15 Blood Culture Stat 01/14/22 13:17 Urinalysis and Microscopic Stat Urine Culture Stat 01/14/22 13:23 Covid-19 + FLU A/B + RSV - PCR Stat 01/14/22 13:25 EKG-12 Lead Stat Acetaminophen (Acetaminophen 325 Mg Tablet) 650 mg PO Q6H PRN PRN Reason: Fever/Mild Pain (1-3) Last Admin: 01/14/22 18:33 Dose: 650 mg Documented By: MS Enoxaparin Sodium (Enoxaparin 40 Mg/0.4 Ml Syringe) 40 mg SUBCUT DAILY FOR[facility]LY [facility], 1928–1983 Dextrose/Sodium Chloride (Dextrose 5%-0.9% Ns) 1,000 mls @ 75 mls/hr IV CONT FOR[facility], 1928–1983 Last Admin: 01/14/22 18:22 Dose: 75 mls/hr Documented By: Azithromycin 500 mg/ Dextrose 250 mls @ 250 mls/hr IV Q24H [facility], [facility]–1983 Stop: 01/18/22 10:59 Levothyroxine Sodium (Levothyroxine 75 Mcg Tablet) 75 mcg PO 0600 FOR[facility]LY [facility], [facility]–1983 Memantine (Memantine Hcl 5 Mg Tablet) 5 mg PO BID FORMERLY [facility], 1928–1983 Naloxone HCl (Naloxone 0.4 Mg/Ml Vial) 0.2 mg IV Q2MIN PRN PRN Reason: Opiate Reversal Pravastatin Sodium (Pravastatin 20 Mg Tablet) 10 mg PO DAILY FOR[facility], 1928–1983 Tamsulosin HCl (Tamsulosin 0.4 Mg Capsule) 0.8 mg PO QPM [facility], 1928[facility]1983 Last Admin: 01/14/22 18:22 Dose: 0.8 mg Documented By: Vitamin D (Cholecalciferol (Vitamin D3) 1,000 Unit Tablet) 1,000 unit PO DAILY FOR[facility]LY [facility], 1928–1983 Discontinued Medications Acetaminophen (Acetaminophen 325 Mg Tablet) 650 mg PO Q6H PRN PRN Reason: Fever/Mild Pain (1-3) Sodium Chloride (Normal Saline 0.9%) 1,000 mls @ 1,000 mls/hr IV BOLUS ONE Stop: 01/14/22 13:08 Last Infusion: 01/14/22 14:32 Dose: 0 mls/hr Documented By: Admin: 01/14/22 13:26 Dose: 1,000 mls/hr Documented By: SHIV Azithromycin 500 mg/ Dextrose 250 mls @ 250 mls/hr IV NOW ONE Stop: 01/14/22 12:10 Last Infusion: 01/14/22 15:18 Dose: 0 mls/hr Documented By: Admin: 01/14/22 14:12 Dose: 250 mls/hr Documented By: SHIV Ceftriaxone Sodium 1,000 mg/ (Sodium Chloride) 100 mls @ 200 mls/hr IV NOW ONE Stop: 01/14/22 12:10 Last Infusion: 01/14/22 14:12 Dose: 0 mls/hr Documented By: Admin: 01/14/22 13:27 Dose: 200 mls/hr Documented By: SHIV Consultations Consultation #1: Consultation with Dr. John for admission, he accepts patient for admission for new oxygen requirement, sepsis, pneumonia. Vital Signs Vital signs: Vital Signs - 8 hr 01/14/22 11:30 01/14/22 11:30 01/14/22 12:00 Temperature Pulse Rate 71 Respiratory Rate 21 Blood Pressure 95/51 L 97/52 L Pulse Oximetry 96 Oxygen Delivery Method Oxygen Flow Rate 01/14/22 12:00 01/14/22 12:23 01/14/22 12:23 Temperature Pulse Rate 74 91 H Respiratory Rate 25 H 27 H Blood Pressure 101/57 L Pulse Oximetry 96 92 Oxygen Delivery Method Oxygen Flow Rate 01/14/22 12:30 01/14/22 12:30 01/14/22 13:00 Temperature Pulse Rate 82 Respiratory Rate 28 H Blood Pressure 112/57 L 101/53 L Pulse Oximetry 95 Oxygen Delivery Method Oxygen Flow Rate 01/14/22 13:00 01/14/22 13:30 01/14/22 13:30 Temperature 98.5 F Pulse Rate 75 74 Respiratory Rate 22 22 Blood Pressure 101/55 L Pulse Oximetry 95 94 Oxygen Delivery Method Nasal Cannula Nasal Cannula Oxygen Flow Rate 1 1 <Lula Thomas, - Last Filed: 01/14/22 19:13> Orders Ordered: ED Orders 01/14/22 10:13 EKG-12 Lead Stat 01/14/22 13:15 Blood Culture Stat 01/14/22 13:17 Urinalysis and Microscopic Stat Urine Culture Stat 01/14/22 13:23 Covid-19 + FLU A/B + RSV - PCR Stat 01/14/22 13:25 EKG-12 Lead Stat Acetaminophen (Acetaminophen 325 Mg Tablet) 650 mg PO Q6H PRN PRN Reason: Fever/Mild Pain (1-3) Last Admin: 01/14/22 18:33 Dose: 650 mg Documented By: MS Enoxaparin Sodium (Enoxaparin 40 Mg/0.4 Ml Syringe) 40 mg SUBCUT DAILY [facility], 1928–1983 Dextrose/Sodium Chloride (Dextrose 5%-0.9% Ns) 1,000 mls @ 75 mls/hr IV CONT ADDI Last Admin: 01/14/22 18:22 Dose: 75 mls/hr Documented By: MS Azithromycin 500 mg/ Dextrose 250 mls @ 250 mls/hr IV Q24H [facility], [facility] Stop: 01/18/22 10:59 Levothyroxine Sodium (Levothyroxine 75 Mcg Tablet) 75 mcg PO 0600 FOR[facility], [facility] Memantine (Memantine Hcl 5 Mg Tablet) 5 mg PO BID FOR[facility], [facility]1983 Naloxone HCl (Naloxone 0.4 Mg/Ml Vial) 0.2 mg IV Q2MIN PRN PRN Reason: Opiate Reversal Pravastatin Sodium (Pravastatin 20 Mg Tablet) 10 mg PO DAILY [facility], 1928[facility]1983 Tamsulosin HCl (Tamsulosin 0.4 Mg Capsule) 0.8 mg PO QPM [facility], [facility] Last Admin: 01/14/22 18:22 Dose: 0.8 mg Documented By: Vitamin D (Cholecalciferol (Vitamin D3) 1,000 Unit Tablet) 1,000 unit PO DAILY [facility], [facility] Discontinued Medications Acetaminophen (Acetaminophen 325 Mg Tablet) 650 mg PO Q6H PRN PRN Reason: Fever/Mild Pain (1-3) Sodium Chloride (Normal Saline 0.9%) 1,000 mls @ 1,000 mls/hr IV BOLUS ONE Stop: 01/14/22 13:08 Last Infusion: 01/14/22 14:32 Dose: 0 mls/hr Documented By: Admin: 01/14/22 13:26 Dose: 1,000 mls/hr Documented By: SHIV Azithromycin 500 mg/ Dextrose 250 mls @ 250 mls/hr IV NOW ONE Stop: 01/14/22 12:10 Last Infusion: 01/14/22 15:18 Dose: 0 mls/hr Documented By: Admin: 01/14/22 14:12 Dose: 250 mls/hr Documented By: SHIV Ceftriaxone Sodium 1,000 mg/ (Sodium Chloride) 100 mls @ 200 mls/hr IV NOW ONE Stop: 01/14/22 12:10 Last Infusion: 01/14/22 14:12 Dose: 0 mls/hr Documented By: Admin: 01/14/22 13:27 Dose: 200 mls/hr Documented By: SHIV Vital Signs Vital signs: Vital Signs - 8 hr 01/14/22 11:30 01/14/22 11:30 01/14/22 12:00 Temperature Pulse Rate 71 Respiratory Rate 21 Blood Pressure 95/51 L 97/52 L Pulse Oximetry 96 Oxygen Delivery Method Oxygen Flow Rate 01/14/22 12:00 01/14/22 12:23 01/14/22 12:23 Temperature Pulse Rate 74 91 H Respiratory Rate 25 H 27 H Blood Pressure 101/57 L Pulse Oximetry 96 92 Oxygen Delivery Method Oxygen Flow Rate 01/14/22 12:30 01/14/22 12:30 01/14/22 13:00 Temperature Pulse Rate 82 Respiratory Rate 28 H Blood Pressure 112/57 L 101/53 L Pulse Oximetry 95 Oxygen Delivery Method Oxygen Flow Rate 01/14/22 13:00 01/14/22 13:30 01/14/22 13:30 Temperature 98.5 F Pulse Rate 75 74 Respiratory Rate 22 22 Blood Pressure 101/55 L Pulse Oximetry 95 94 Oxygen Delivery Method Nasal Cannula Nasal Cannula Oxygen Flow Rate 1 1 Sepsis Evaluation (ED) <VÍCTOR Mueller - Last Filed: 01/14/22 14:47> Triage Screening Sepsis Screen: No Definite Risk Level 1 - Infection Sepsis Infection Criteria Present: Suspected New Infection Level 2 - SIRS Sepsis SIRS Criteria Present: Respiratory Rate > 20 bpm or PaCO2 < 32 mmHg, WBC < 4k or > 12k or Bands > 10% and Pulse > 90 bpm Level 3 - Organ Dysfunction Sepsis Organ Dysfunction Criteria Present: New/Unexplained Change in Mental Status Response It is my opinion that his patient have a likely infectious etiology for meeting sepsis criteria: Does Fluid calculation based on 30 mL/kg within 1hr of criteria: ABW used Antibiotics initiated within 1 hr of Sepis dx: Yes Tissue Perfusion Reassessed within 6 hrs of infusion start time: Yes Date of Tissue Perfusion Reassessment completed: 01/14/22 Time Tissue Perfusion Reassessment completed: 14:47 MDM - Sepsis <VÍCTOR Mueller - Last Filed: 01/14/22 14:47> Differential Diagnosis Current stage of sepsis: sepsis Possible source sepsis: pulmonary Differential diagnosis: hypovolemia, acute pulmonary embolism, acute myocardial infarction, pneumonia and SIRS Lab Data Result diagrams: 01/14/22 09:40 01/14/22 09:40 Labs: Lab Results 01/14/22 01/14/22 01/14/22 Range/Units 09:40 09:40 09:40 WBC 19.1 H (4.5-11.0) X10^3/uL RBC 4.17 L (4.5-5.9) X10^6/uL Hgb 12.9 L (13.5-17.5) g/dL Hct 39.1 L (41-53) % MCV 93.8 (80-100) fL MCH 30.9 (26-34) PG MCHC 32.9 (30-36) % RDW 13.4 (11.6-14.8) % Plt Count 174 (150-400) X10^3/uL Neut % (Auto) 92.6 H (50-75) % Lymph % (Auto) 2.0 L (25-40) % [place] % (Auto) 4.7 (3-14) % Eos % (Auto) 0.2 L (2-4) % Baso % (Auto) 0.5 (0-2) % Neut # (Auto) 51785 H (1473-7957) /uL Lymph # (Auto) 400 L (4148-6686) /uL [place] # (Auto) 900 (0-900) /uL Eos # (Auto) 0 (0-450) /uL Baso # (Auto) 100 (0-100) /uL PT (10.1-12.7) SECONDS INR (0.9-1.3) Sodium 132 L (137-145) mmol/L Potassium 3.5 (3.4-5.1) mmol/L Chloride 98 (98-107) mmol/L Carbon Dioxide 27 (22-32) mmol/L BUN 22 H (9-20) mg/dL Creatinine 0.75 (0.66-1.25) mg/dL Estimated GFR > 60 (>60) mL/min BUN/Creatinine Ratio 29.3 H (6-22) Glucose 90 (80-110) mg/dL Lactate 1.1 (0.7-2.1) mmol/L Calcium 8.6 (8.4-10.2) mg/dL Magnesium (1.6-2.3) mg/dL Total Bilirubin 1.2 (0.2-1.3) mg/dL AST 25 (17-59) IU/L ALT 18 (<50) IU/L Alkaline Phosphatase 70 (38-126) U/L Total Creatine Kinase (55-170) U/L CK-MB (CK-2) (<2.37) ng/mL CK-MB (CK-2) Rel Index (1.5-5.0) % Troponin I < 0.012 (0.01-0.034) ng/mL C-Reactive Protein (<1.0) mg/dL NT-Pro-B Natriuret Pep (<450) pg/mL Total Protein 7.0 (6.3-8.2) g/dL Albumin 3.9 (3.5-5.0) g/dL Globulin 3.1 (1.7-4.1) g/dL Albumin/Globulin Ratio 1.3 (1.0-2.8) Procalcitonin (<0.5) ng/mL Urine Color Urine Appearance Urine pH (4.5-8.0) Ur Specific [place] (1.000-1.035) Urine Protein (Negative) Urine Glucose (UA) (Negative) g/dL Urine Ketones (NEGATIVE) Urine Occult Blood (Negative) Urine Nitrate (Negative) Urine Bilirubin (NEGATIVE) Urine Urobilinogen (0.2) E.U./dL Ur Leukocyte Esterase (NEGATIVE) Urine RBC (0-5/HPF) Urine WBC (0-5/HPF) Ur Squamous Epith Cells (0-5/HPF) Urine Bacteria (None) Ur Culture Indicated? SARS-CoV-2 (PCR) (Negative) Influenza A (RT-PCR) (NEGATIVE) Influenza B (RT-PCR) (NEGATIVE) RSV (PCR) (Negative) 01/14/22 01/14/22 01/14/22 Range/Units 09:40 09:40 09:40 WBC (4.5-11.0) X10^3/uL RBC (4.5-5.9) X10^6/uL Hgb (13.5-17.5) g/dL Hct (41-53) % MCV (80-100) fL MCH (26-34) PG MCHC (30-36) % RDW (11.6-14.8) % Plt Count (150-400) X10^3/uL Neut % (Auto) (50-75) % Lymph % (Auto) (25-40) % [place] % (Auto) (3-14) % Eos % (Auto) (2-4) % Baso % (Auto) (0-2) % Neut # (Auto) (2523-1423) /uL Lymph # (Auto) (3080-1572) /uL [place] # (Auto) (0-900) /uL Eos # (Auto) (0-450) /uL Baso # (Auto) (0-100) /uL PT 14.3 H (10.1-12.7) SECONDS INR 1.2 (0.9-1.3) Sodium (137-145) mmol/L Potassium (3.4-5.1) mmol/L Chloride (98-107) mmol/L Carbon Dioxide (22-32) mmol/L BUN (9-20) mg/dL Creatinine (0.66-1.25) mg/dL Estimated GFR (>60) mL/min BUN/Creatinine Ratio (6-22) Glucose (80-110) mg/dL Lactate (0.7-2.1) mmol/L Calcium (8.4-10.2) mg/dL Magnesium 1.6 (1.6-2.3) mg/dL Total Bilirubin (0.2-1.3) mg/dL AST (17-59) IU/L ALT (<50) IU/L Alkaline Phosphatase (38-126) U/L Total Creatine Kinase 186 H (55-170) U/L CK-MB (CK-2) 2.21 (<2.37) ng/mL CK-MB (CK-2) Rel Index 1.2 L (1.5-5.0) % Troponin I < 0.012 (0.01-0.034) ng/mL C-Reactive Protein 1.4 H (<1.0) mg/dL NT-Pro-B Natriuret Pep 614 H (<450) pg/mL Total Protein (6.3-8.2) g/dL Albumin (3.5-5.0) g/dL Globulin (1.7-4.1) g/dL Albumin/Globulin Ratio (1.0-2.8) Procalcitonin 1.36 H (<0.5) ng/mL Urine Color Urine Appearance Urine pH (4.5-8.0) Ur Specific [place] (1.000-1.035) Urine Protein (Negative) Urine Glucose (UA) (Negative) g/dL Urine Ketones (NEGATIVE) Urine Occult Blood (Negative) Urine Nitrate (Negative) Urine Bilirubin (NEGATIVE) Urine Urobilinogen (0.2) E.U./dL Ur Leukocyte Esterase (NEGATIVE) Urine RBC (0-5/HPF) Urine WBC (0-5/HPF) Ur Squamous Epith Cells (0-5/HPF) Urine Bacteria (None) Ur Culture Indicated? SARS-CoV-2 (PCR) (Negative) Influenza A (RT-PCR) (NEGATIVE) Influenza B (RT-PCR) (NEGATIVE) RSV (PCR) (Negative) 01/14/22 01/14/22 Range/Units 13:17 13:23 WBC (4.5-11.0) X10^3/uL RBC (4.5-5.9) X10^6/uL Hgb (13.5-17.5) g/dL Hct (41-53) % MCV (80-100) fL MCH (26-34) PG MCHC (30-36) % RDW (11.6-14.8) % Plt Count (150-400) X10^3/uL Neut % (Auto) (50-75) % Lymph % (Auto) (25-40) % [place] % (Auto) (3-14) % Eos % (Auto) (2-4) % Baso % (Auto) (0-2) % Neut # (Auto) (4404-1877) /uL Lymph # (Auto) (2534-7801) /uL [place] # (Auto) (0-900) /uL Eos # (Auto) (0-450) /uL Baso # (Auto) (0-100) /uL PT (10.1-12.7) SECONDS INR (0.9-1.3) Sodium (137-145) mmol/L Potassium (3.4-5.1) mmol/L Chloride (98-107) mmol/L Carbon Dioxide (22-32) mmol/L BUN (9-20) mg/dL Creatinine (0.66-1.25) mg/dL Estimated GFR (>60) mL/min BUN/Creatinine Ratio (6-22) Glucose (80-110) mg/dL Lactate (0.7-2.1) mmol/L Calcium (8.4-10.2) mg/dL Magnesium (1.6-2.3) mg/dL Total Bilirubin (0.2-1.3) mg/dL AST (17-59) IU/L ALT (<50) IU/L Alkaline Phosphatase (38-126) U/L Total Creatine Kinase (55-170) U/L CK-MB (CK-2) (<2.37) ng/mL CK-MB (CK-2) Rel Index (1.5-5.0) % Troponin I (0.01-0.034) ng/mL C-Reactive Protein (<1.0) mg/dL NT-Pro-B Natriuret Pep (<450) pg/mL Total Protein (6.3-8.2) g/dL Albumin (3.5-5.0) g/dL Globulin (1.7-4.1) g/dL Albumin/Globulin Ratio (1.0-2.8) Procalcitonin (<0.5) ng/mL Urine Color Yellow Urine Appearance Slightly cloudy Urine pH 6.0 (4.5-8.0) Ur Specific [place] 1.010 (1.000-1.035) Urine Protein Trace H (Negative) Urine Glucose (UA) Negative (Negative) g/dL Urine Ketones 2+ H (NEGATIVE) Urine Occult Blood Trace-intact (Negative) Urine Nitrate Negative (Negative) Urine Bilirubin Negative (NEGATIVE) Urine Urobilinogen 0.2 (0.2) E.U./dL Ur Leukocyte Esterase Trace H (NEGATIVE) Urine RBC 0-1/hpf (0-5/HPF) Urine WBC 1-5/hpf (0-5/HPF) Ur Squamous Epith Cells 0-1 /hpf (0-5/HPF) Urine Bacteria Occasional (0-1) (None) Ur Culture Indicated? Specimen cultured SARS-CoV-2 (PCR) Negative (Negative) Influenza A (RT-PCR) Flu a negative (NEGATIVE) Influenza B (RT-PCR) Flu b negative (NEGATIVE) RSV (PCR) Negative (Negative) Imaging Data Chest x-ray: Radiologist's Impression: PROCEDURE:? XR CHEST 1V ? INDICATIONS:? weakness ? TECHNIQUE:? One view of the chest was acquired.? ? COMPARISON:? [facility], , CHEST 2 VIEW, 11/07/2013, 11:58. ? FINDINGS:? ? Surgical changes and devices:? None.? ? Lungs and pleura:? Right basilar opacity. ? Mediastinum:? Mediastinal contours appear normal.? Heart size is enlarged. ? Bones and chest wall:? No suspicious bony lesions.? Overlying soft tissues appear unremarkable.? ? IMPRESSION:? Right basilar opacity most suggestive of developing pneumonia. ? ? Dictated by: Amy Marie M.D. on 01/14/2022 at 10:47 ? ? Approved by: Amy Marie M.D. on 01/14/2022 at 10:47 ? [facility] Narrative Medical decision making narrative: This is an 86-year-old gentleman who presents to the emergency department via EMS for altered mental status, shortness of breath, concern for upper respiratory infection, he received his influenza vaccination yesterday. Patient lives at home with his however for the last 3 days she was in inpatient in the hospital and he has been home alone. Patient's son checked on him this morning and found him to be altered, short of breath, and not acting like himself. In the emergency department initially he had mild hypotension with systolics in the low 90s, GCS 13-14 and alert and oriented 2121. Pleasantly confused, awake with generalized weakness, shortness of breath, tachypnea and has a new oxygen requirement of 1 L nasal cannula for O2 sats in the mid 90s. On room air he was 88-90%. He has a marked leukocytosis of 19.1 with a left s hift, mild hyponatremia of 132, potassium 3.5, BUN is increased at 22 without lactic acidosis elevation of liver enzymes, or troponin. CRP is mildly elevated 1.4, BNP is 614 without evidence of pleural effusion or pneumothorax on chest x- ray. Chest x-ray does show a right basilar focal opacity and is consistent with his exam which had anterior and posterior crackles, diminished breath sounds to the right middle lobe. His procalcitonin is 1.36, blood cultures were drawn prior to starting antibiotics, UA shows a trace of leukocyte esterase and without blood or WBCs, this is likely contaminant although it is pending for culture. Patient received 1 L of normal saline instead of 30 mL/kg due to his age and elevated BNP with previous cardiac history and mitral valve prolapse with regurg. He received azithromycin and ceftriaxone via IV and Tylenol for his low-grade fever. Discussion with Dr. John who is patient's PCP for admission for pneumonia with a new oxygen requirement and without adequate support at home with likelihood to have worsening and return. He accepts patient for inpatient admission. Patient was informed of lab and imaging results, pertinent diagnoses, consulting physicians, and treatment plan. I have spoken with the patient in regard to admission, patient understands and agrees. I have communicated the patient's evaluation and treatment plan to the admitting physician who agrees with admission. All questions answered at this time. <Lula Thomas, DO - Last Filed: 01/14/22 19:13> Lab Data Labs: Lab Results 01/14/22 01/14/22 01/14/22 Range/Units 09:40 09:40 09:40 WBC 19.1 H (4.5-11.0) X10^3/uL RBC 4.17 L (4.5-5.9) X10^6/uL Hgb 12.9 L (13.5-17.5) g/dL Hct 39.1 L (41-53) % MCV 93.8 (80-100) fL MCH 30.9 (26-34) PG MCHC 32.9 (30-36) % RDW 13.4 (11.6-14.8) % Plt Count 174 (150-400) X10^3/uL Neut % (Auto) 92.6 H (50-75) % Lymph % (Auto) 2.0 L (25-40) % [place] % (Auto) 4.7 (3-14) % Eos % (Auto) 0.2 L (2-4) % Baso % (Auto) 0.5 (0-2) % Neut # (Auto) 38134 H (5518-5690) /uL Lymph # (Auto) 400 L (1828-0077) /uL [place] # (Auto) 900 (0-900) /uL Eos # (Auto) 0 (0-450) /uL Baso # (Auto) 100 (0-100) /uL PT (10.1-12.7) SECONDS INR (0.9-1.3) Sodium 132 L (137-145) mmol/L Potassium 3.5 (3.4-5.1) mmol/L Chloride 98 (98-107) mmol/L Carbon Dioxide 27 (22-32) mmol/L BUN 22 H (9-20) mg/dL Creatinine 0.75 (0.66-1.25) mg/dL Estimated GFR > 60 (>60) mL/min BUN/Creatinine Ratio 29.3 H (6-22) Glucose 90 (80-110) mg/dL Lactate 1.1 (0.7-2.1) mmol/L Calcium 8.6 (8.4-10.2) mg/dL Magnesium (1.6-2.3) mg/dL Total Bilirubin 1.2 (0.2-1.3) mg/dL AST 25 (17-59) IU/L ALT 18 (<50) IU/L Alkaline Phosphatase 70 (38-126) U/L Total Creatine Kinase (55-170) U/L CK-MB (CK-2) (<2.37) ng/mL CK-MB (CK-2) Rel Index (1.5-5.0) % Troponin I < 0.012 (0.01-0.034) ng/mL C-Reactive Protein (<1.0) mg/dL NT-Pro-B Natriuret Pep (<450) pg/mL Total Protein 7.0 (6.3-8.2) g/dL Albumin 3.9 (3.5-5.0) g/dL Globulin 3.1 (1.7-4.1) g/dL Albumin/Globulin Ratio 1.3 (1.0-2.8) Procalcitonin (<0.5) ng/mL Urine Color Urine Appearance Urine pH (4.5-8.0) Ur Specific [place] (1.000-1.035) Urine Protein (Negative) Urine Glucose (UA) (Negative) g/dL Urine Ketones (NEGATIVE) Urine Occult Blood (Negative) Urine Nitrate (Negative) Urine Bilirubin (NEGATIVE) Urine Urobilinogen (0.2) E.U./dL Ur Leukocyte Esterase (NEGATIVE) Urine RBC (0-5/HPF) Urine WBC (0-5/HPF) Ur Squamous Epith Cells (0-5/HPF) Urine Bacteria (None) Ur Culture Indicated? SARS-CoV-2 (PCR) (Negative) Influenza A (RT-PCR) (NEGATIVE) Influenza B (RT-PCR) (NEGATIVE) RSV (PCR) (Negative) 01/14/22 01/14/22 01/14/22 Range/Units 09:40 09:40 09:40 WBC (4.5-11.0) X10^3/uL RBC (4.5-5.9) X10^6/uL Hgb (13.5-17.5) g/dL Hct (41-53) % MCV (80-100) fL MCH (26-34) PG MCHC (30-36) % RDW (11.6-14.8) % Plt Count (150-400) X10^3/uL Neut % (Auto) (50-75) % Lymph % (Auto) (25-40) % [place] % (Auto) (3-14) % Eos % (Auto) (2-4) % Baso % (Auto) (0-2) % Neut # (Auto) (7956-1226) /uL Lymph # (Auto) (3659-3833) /uL [place] # (Auto) (0-900) /uL Eos # (Auto) (0-450) /uL Baso # (Auto) (0-100) /uL PT 14.3 H (10.1-12.7) SECONDS INR 1.2 (0.9-1.3) Sodium (137-145) mmol/L Potassium (3.4-5.1) mmol/L Chloride (98-107) mmol/L Carbon Dioxide (22-32) mmol/L BUN (9-20) mg/dL Creatinine (0.66-1.25) mg/dL Estimated GFR (>60) mL/min BUN/Creatinine Ratio (6-22) Glucose (80-110) mg/dL Lactate (0.7-2.1) mmol/L Calcium (8.4-10.2) mg/dL Magnesium 1.6 (1.6-2.3) mg/dL Total Bilirubin (0.2-1.3) mg/dL AST (17-59) IU/L ALT (<50) IU/L Alkaline Phosphatase (38-126) U/L Total Creatine Kinase 186 H (55-170) U/L CK-MB (CK-2) 2.21 (<2.37) ng/mL CK-MB (CK-2) Rel Index 1.2 L (1.5-5.0) % Troponin I < 0.012 (0.01-0.034) ng/mL C-Reactive Protein 1.4 H (<1.0) mg/dL NT-Pro-B Natriuret Pep 614 H (<450) pg/mL Total Protein (6.3-8.2) g/dL Albumin (3.5-5.0) g/dL Globulin (1.7-4.1) g/dL Albumin/Globulin Ratio (1.0-2.8) Procalcitonin 1.36 H (<0.5) ng/mL Urine Color Urine Appearance Urine pH (4.5-8.0) Ur Specific [place] (1.000-1.035) Urine Protein (Negative) Urine Glucose (UA) (Negative) g/dL Urine Ketones (NEGATIVE) Urine Occult Blood (Negative) Urine Nitrate (Negative) Urine Bilirubin (NEGATIVE) Urine Urobilinogen (0.2) E.U./dL Ur Leukocyte Esterase (NEGATIVE) Urine RBC (0-5/HPF) Urine WBC (0-5/HPF) Ur Squamous Epith Cells (0-5/HPF) Urine Bacteria (None) Ur Culture Indicated? SARS-CoV-2 (PCR) (Negative) Influenza A (RT-PCR) (NEGATIVE) Influenza B (RT-PCR) (NEGATIVE) RSV (PCR) (Negative) 01/14/22 01/14/22 Range/Units 13:17 13:23 WBC (4.5-11.0) X10^3/uL RBC (4.5-5.9) X10^6/uL Hgb (13.5-17.5) g/dL Hct (41-53) % MCV (80-100) fL MCH (26-34) PG MCHC (30-36) % RDW (11.6-14.8) % Plt Count (150-400) X10^3/uL Neut % (Auto) (50-75) % Lymph % (Auto) (25-40) % [place] % (Auto) (3-14) % Eos % (Auto) (2-4) % Baso % (Auto) (0-2) % Neut # (Auto) (5141-5498) /uL Lymph # (Auto) (0840-1641) /uL [place] # (Auto) (0-900) /uL Eos # (Auto) (0-450) /uL Baso # (Auto) (0-100) /uL PT (10.1-12.7) SECONDS INR (0.9-1.3) Sodium (137-145) mmol/L Potassium (3.4-5.1) mmol/L Chloride (98-107) mmol/L Carbon Dioxide (22-32) mmol/L BUN (9-20) mg/dL Creatinine (0.66-1.25) mg/dL Estimated GFR (>60) mL/min BUN/Creatinine Ratio (6-22) Glucose (80-110) mg/dL Lactate (0.7-2.1) mmol/L Calcium (8.4-10.2) mg/dL Magnesium (1.6-2.3) mg/dL Total Bilirubin (0.2-1.3) mg/dL AST (17-59) IU/L ALT (<50) IU/L Alkaline Phosphatase (38-126) U/L Total Creatine Kinase (55-170) U/L CK-MB (CK-2) (<2.37) ng/mL CK-MB (CK-2) Rel Index (1.5-5.0) % Troponin I (0.01-0.034) ng/mL C-Reactive Protein (<1.0) mg/dL NT-Pro-B Natriuret Pep (<450) pg/mL Total Protein (6.3-8.2) g/dL Albumin (3.5-5.0) g/dL Globulin (1.7-4.1) g/dL Albumin/Globulin Ratio (1.0-2.8) Procalcitonin (<0.5) ng/mL Urine Color Yellow Urine Appearance Slightly cloudy Urine pH 6.0 (4.5-8.0) Ur Specific [place] 1.010 (1.000-1.035) Urine Protein Trace H (Negative) Urine Glucose (UA) Negative (Negative) g/dL Urine Ketones 2+ H (NEGATIVE) Urine Occult Blood Trace-intact (Negative) Urine Nitrate Negative (Negative) Urine Bilirubin Negative (NEGATIVE) Urine Urobilinogen 0.2 (0.2) E.U./dL Ur Leukocyte Esterase Trace H (NEGATIVE) Urine RBC 0-1/hpf (0-5/HPF) Urine WBC 1-5/hpf (0-5/HPF) Ur Squamous Epith Cells 0-1 /hpf (0-5/HPF) Urine Bacteria Occasional (0-1) (None) Ur Culture Indicated? Specimen cultured SARS-CoV-2 (PCR) Negative (Negative) Influenza A (RT-PCR) Flu a negative (NEGATIVE) Influenza B (RT-PCR) Flu b negative (NEGATIVE) RSV (PCR) Negative (Negative) ECG Data Attestation: I personally reviewed and interpreted this ECG as follows: Interpretation: EKG 1. Shows sinus rhythm occasional premature atrial complex rate of 74 OR 144 QRS is 78 QTC of 404. No acute ST elevation noted. EKG 2. Shows sinus rhythm rate of 75 P 146 QRS 82 and QTC of 433. No acute elevation or depression appreciated. Discharge Plan Departure Patient Disposition: Admitted As Inpatient Clinical Impression: Acute hyponatremia, On supplemental oxygen by nasal cannula Pneumonia Qualifiers: Pneumonia type: due to unspecified organism Laterality: right Lung location: lower lobe of lung Qualified Code(s): J18.9 - Pneumonia, unspecified organism Sepsis Qualifiers: Sepsis type: sepsis due to unspecified organism Sepsis acute organ dysfunction status: with acute organ dysfunction Severe sepsis acute organ dysfunction type: unspecified Severe sepsis shock status: unspecified Qualified Code(s): A41.9 - Sepsis, unspecified organism Admit Date/Time: 01/14/22 13:46 Admit Provider: Lexx John <Lula Thomas DO - Last Filed: 01/14/22 19:13> Cosign ED Attending Cosignature Attestation: I was immediately available in the department for consultation. This documentation has been reviewed and I agree with assessment and plan. Patient case was discussed plan for admission. Supervised by Lula Thomas DO
[2022-01-14 12:33] LABS: C-Reactive Protein Quant 1.4 mg/dL (<1.0); Creatine Kinase 186 U/L (55-170); Magnesium 1.6 mg/dL (1.6-2.3)
[2022-01-14 12:39] LABS: NT-proBNP (BNP-Adult 18+) 614 pg/mL (<450)
[2022-01-14 12:42] LABS: Troponin I < 0.012 ng/mL (0.01-0.034)
[2022-01-14 12:47] LABS: Procalcitonin 1.36 ng/mL (<0.5)
[2022-01-14 13:16] LABS: CKMB % Relative Index 1.2 % (1.5-5.0); Creatine Kinase MB 2.21 ng/mL (<2.37)
[2022-01-14] MEDS: SODIUM CHLORIDE 0.9% 1,000 ML 1000 ML IV (13:26)
[2022-01-14] MEDS: cefTRIAXone 1,000 MG in SODIUM CHLORIDE 0.9% 100 ML 200 MG IV (13:27)
[2022-01-14 13:30] LABS: Bilirubin Urine UA NEGATIVE (NEGATIVE); Color Urine UA YELLOW; Glucose Urine UA NEGATIVE (Negative); Ketones Urine UA 2+ (NEGATIVE); Leukocyte Esterase Urine UA TRACE (NEGATIVE); Nitrite Urine UA NEGATIVE (Negative); Occult Blood Urine UA TRACE-INTACT (Negative); Protein Urine UA TRACE (Negative); Urobilinogen Urine UA 0.2 E.U./dL (0.2)
[2022-01-14 13:31] LABS: Appearance Urine UA Slightly Cloudy
[2022-01-14 13:38] LABS: Bacteria Urine Occasional (0-1); Culture Indicated Urine Specimen Cultured; RBC Urine 0-1/HPF (0-5/HPF); Squamous Epithelial Cell Urine 0-1 /HPF (0-5/HPF); WBC Urine 1-5/HPF (0-5/HPF)
--- NOTE | 2022-01-14 14:04 | P.HP_ITS ---
History of Present Illness History of Present Illness Date Patient Seen: 01/14/22 Time Patient Seen: 14:04 Chief complaint: generalized weakness Narrative: 86-year-old patient known to me although not seen since January 2021 who is admitted via the emergency department with pneumonia Apparently was found by his son to be a bit in altered mental state when a bit dyspneic and globally weak. Spouse was admitted to [facility] with pneumonia and discharged home today which is why the patient's son is become involved. Apparently patient was well enough to care for himself all spouse was in the hospital for 2 and half days. He was transported to the ER where he is found to have a right lower lobe pneumonia a leukocytosis maybe a very tiny oxygen requirement with an O2 saturation of 87 88% on room air with activity. He was somewhat globally weak and given his home situation particular was elected to admit him for treatment of his pneumonia etcetera Patient with some degree of cognitive dysfunction seemingly per patient's son worsening over time here somewhat recently and dramatically worse today when he saw his father. This is been bad enough to the point where patient's spouse is looking for alternative living facility such as assisted living even though patient is not yet agreement with the need for same In the ER he is found to have pneumonia with leukocytosis. Very minimal oxygen requirement. His heart rate and blood pressure were stable and at baseline for him even though he is modestly hypotensive that is his usual normal. No evidence of complication to lobar pneumonia on his chest x-ray. He tests COVID negative as well. Patient History Medical History Actinic keratosis (1993) BPH w urinary obs/LUTS Chronic back pain (1969) Excessive daytime sleepiness Head ache Hearing impairment (1997) Hemorrhoids (1969) History of basal cell carcinoma (BCC) of skin (01/20/17) History of SCC (squamous cell carcinoma) of skin (1987) Hyperthyroidism (2012) Memory impairment Microscopic hematuria Mild cognitive impairment Mitral regurgitation Mitral valve prolapse Obstructive sleep apnea of adult Skin cancer (1974) 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 Surgical History Anesthesia History of cataract removal with insertion of prosthetic lens (2012) History of squamous cell carcinoma excision (2013) History of squamous cell carcinoma excision (1987) History of transurethral resection of prostate Hx of circumcision Hx of vasectomy Status post hernia repair (1979) Status post hernia repair (1987) Status post Mohs surgery for basal cell carcinoma (03/09/17) Status post tonsillectomy and adenoidectomy (1941) Family & Social History Family History Brother Age: 76 Skin cancer Father Metastatic cancer to brain Respiratory failure Mother Cancer Alzheimer's disease Aspiration pneumonia Sister Age: 84 Alzheimer's disease Social History: household members spouse lives independently Yes caregiver/support person Yes: Virgen reminds me when I forget Safety & Behavioral: Feels Safe in Current Yes Environment Been Physically Hurt or No Threatened By a Person Tobacco & Substance use: Smoking Status Former smoker alcohol intake former alcohol intake frequency other Substance Use Type does not use Meds Home Medications and Allergies Home Medications Medication Instructions Recorded Confirmed Type cholecalciferol (vitamin D3) 25 25 mcg PO DAILY #90 caps 12/26/19 01/14/22 Rx mcg (1,000 unit) capsule pravastatin 20 mg tablet 10 mg PO DAILY #45 tabs 10/27/21 01/14/22 Rx memantine 5 mg tablet (Namenda) 5 mg PO BID #180 tabs 12/09/21 01/14/22 Rx tamsulosin 0.4 mg capsule 0.8 mg PO QPM #180 caps 12/14/21 01/14/22 Rx levothyroxine 75 mcg tablet 75 mcg PO QDAY #90 tabs 12/22/21 01/14/22 Rx Allergies Allergy/AdvReac Type Severity Reaction Status Date / Time No Known Drug Allergies Allergy Unknown Verified 01/14/22 09:51 [NO KNOWN DRUG ALLERGIES] Review of Systems Review of Systems ROS: Yes All systems reviewed with the patient and are negative except as otherwise documented Exam Vital Signs (past 8 hours): - 01/14/22 09:53 01/14/22 10:32 01/14/22 11:00 Temperature 99.9 F H Pulse Rate 80 70 Respiratory Rate 25 H 22 Blood Pressure 122/58 L 96/52 L Pulse Oximetry 92 95 Oxygen Delivery Method Room Air Oxygen Flow Rate 01/14/22 11:00 01/14/22 11:30 01/14/22 11:30 Temperature Pulse Rate 75 71 Respiratory Rate 22 21 Blood Pressure 95/51 L Pulse Oximetry 95 96 Oxygen Delivery Method Oxygen Flow Rate 01/14/22 12:00 01/14/22 12:00 01/14/22 12:23 Temperature Pulse Rate 74 91 H Respiratory Rate 25 H 27 H Blood Pressure 97/52 L Pulse Oximetry 96 92 Oxygen Delivery Method Oxygen Flow Rate 01/14/22 12:23 01/14/22 12:30 01/14/22 12:30 Temperature Pulse Rate 82 Respiratory Rate 28 H Blood Pressure 101/57 L 112/57 L Pulse Oximetry 95 Oxygen Delivery Method Oxygen Flow Rate 01/14/22 13:00 01/14/22 13:00 01/14/22 13:30 Temperature Pulse Rate 75 Respiratory Rate 22 Blood Pressure 101/53 L 101/55 L Pulse Oximetry 95 Oxygen Delivery Method Nasal Cannula Oxygen Flow Rate 1 01/14/22 13:30 Temperature 98.5 F Pulse Rate 74 Respiratory Rate 22 Blood Pressure Pulse Oximetry 94 Oxygen Delivery Method Nasal Cannula Oxygen Flow Rate 1 Oxygen Delivery Method Nasal Cannula Oxygen Flow Rate 1 Narrative Exam Narrative: Elderly male looking frail and ill in his hospital bed HEENT-normocephalic atraumatic Neck-no bruits Lungs-crackles at the right base minimal air movement although question patient cooperation Heart-regular rate and rhythm with what sounds like extrasystoles in a random pattern no murmur Abdomen-benign Extremities-no cyanosis clubbing or edema Neuro-moves all 4 extremities readily identifies me and that he had an appointment to see me in the outpatient clinic this afternoon perhaps some slurring of speech Objective Imaging Chest x-ray: Radiologist's impression: PROCEDURE:? XR CHEST 1V ? INDICATIONS:? weakness ? TECHNIQUE:? One view of the chest was acquired.? ? COMPARISON:? [facility], , CHEST 2 VIEW, 11/07/2013, 11:58. ? FINDINGS:? ? Surgical changes and devices:? None.? ? Lungs and pleura:? Right basilar opacity. ? Mediastinum:? Mediastinal contours appear normal.? Heart size is enlarged. ? Bones and chest wall:? No suspicious bony lesions.? Overlying soft tissues appear unremarkable.? ? IMPRESSION:? Right basilar opacity most suggestive of developing pneumonia. Labs Result Diagrams: 01/14/22 09:40 01/14/22 09:40 Labs: Laboratory Results - last 24 hr 01/14/22 01/14/22 01/14/22 09:40 09:40 09:40 WBC 19.1 H RBC 4.17 L Hgb 12.9 L Hct 39.1 L MCV 93.8 MCH 30.9 MCHC 32.9 RDW 13.4 Plt Count 174 Neut % (Auto) 92.6 H Lymph % (Auto) 2.0 L [place] % (Auto) 4.7 Eos % (Auto) 0.2 L Baso % (Auto) 0.5 Neut # (Auto) 14358 H Lymph # (Auto) 400 L [place] # (Auto) 900 Eos # (Auto) 0 Baso # (Auto) 100 PT INR Sodium 132 L Potassium 3.5 Chloride 98 Carbon Dioxide 27 BUN 22 H Creatinine 0.75 Estimated GFR > 60 BUN/Creatinine Ratio 29.3 H Glucose 90 Lactate 1.1 Calcium 8.6 Magnesium Total Bilirubin 1.2 AST 25 ALT 18 Alkaline Phosphatase 70 Total Creatine Kinase CK-MB (CK-2) CK-MB (CK-2) Rel Index Troponin I < 0.012 C-Reactive Protein NT-Pro-B Natriuret Pep Total Protein 7.0 Albumin 3.9 Globulin 3.1 Albumin/Globulin Ratio 1.3 Procalcitonin Urine Color Urine Appearance Urine pH Ur Specific [place] Urine Protein Urine Glucose (UA) Urine Ketones Urine Occult Blood Urine Nitrate Urine Bilirubin Urine Urobilinogen Ur Leukocyte Esterase Urine RBC Urine WBC Ur Squamous Epith Cells Urine Bacteria Ur Culture Indicated? 01/14/22 01/14/22 01/14/22 09:40 09:40 09:40 WBC RBC Hgb Hct MCV MCH MCHC RDW Plt Count Neut % (Auto) Lymph % (Auto) [place] % (Auto) Eos % (Auto) Baso % (Auto) Neut # (Auto) Lymph # (Auto) [place] # (Auto) Eos # (Auto) Baso # (Auto) PT 14.3 H INR 1.2 Sodium Potassium Chloride Carbon Dioxide BUN Creatinine Estimated GFR BUN/Creatinine Ratio Glucose Lactate Calcium Magnesium 1.6 Total Bilirubin AST ALT Alkaline Phosphatase Total Creatine Kinase 186 H CK-MB (CK-2) 2.21 CK-MB (CK-2) Rel Index 1.2 L Troponin I < 0.012 C-Reactive Protein 1.4 H NT-Pro-B Natriuret Pep 614 H Total Protein Albumin Globulin Albumin/Globulin Ratio Procalcitonin 1.36 H Urine Color Urine Appearance Urine pH Ur Specific [place] Urine Protein Urine Glucose (UA) Urine Ketones Urine Occult Blood Urine Nitrate Urine Bilirubin Urine Urobilinogen Ur Leukocyte Esterase Urine RBC Urine WBC Ur Squamous Epith Cells Urine Bacteria Ur Culture Indicated? 01/14/22 13:17 WBC RBC Hgb Hct MCV MCH MCHC RDW Plt Count Neut % (Auto) Lymph % (Auto) [place] % (Auto) Eos % (Auto) Baso % (Auto) Neut # (Auto) Lymph # (Auto) [place] # (Auto) Eos # (Auto) Baso # (Auto) PT INR Sodium Potassium Chloride Carbon Dioxide BUN Creatinine Estimated GFR BUN/Creatinine Ratio Glucose Lactate Calcium Magnesium Total Bilirubin AST ALT Alkaline Phosphatase Total Creatine Kinase CK-MB (CK-2) CK-MB (CK-2) Rel Index Troponin I C-Reactive Protein NT-Pro-B Natriuret Pep Total Protein Albumin Globulin Albumin/Globulin Ratio Procalcitonin Urine Color Yellow Urine Appearance Slightly cloudy Urine pH 6.0 Ur Specific [place] 1.010 Urine Protein Trace H Urine Glucose (UA) Negative Urine Ketones 2+ H Urine Occult Blood Trace-intact Urine Nitrate Negative Urine Bilirubin Negative Urine Urobilinogen 0.2 Ur Leukocyte Esterase Trace H Urine RBC 0-1/hpf Urine WBC 1-5/hpf Ur Squamous Epith Cells 0-1 /hpf Urine Bacteria Occasional (0-1) Ur Culture Indicated? Specimen cultured Assessment & Plan Assessment & Plan narrative: 1. Community-acquired pneumonia-patient with bit of hyponatremia which would suggest perhaps an atypical pneumonia. He has a very minimal oxygen requirement but a notable leukocytosis. At this point I think we should continue with the IV azithromycin which was initiated in the ER. Was also given a dose of IV ceftriaxone I am not convinced that is necessary in this case. Continue with oxygen as necessary maintaining an oxygen saturation with activity and at rest of 89% or greater. His lactate level is normal he was a bit hypotensive but he is actually fairly much at baseline with his blood pressure here today so not convinced there is any more serious infectious complications such as sepsis or inflammatory systemic response or anything along those lines at this point. He does appear to have acute respiratory failure with hypoxia based on his ER evaluation as noted above. 2. Hyponatremia-very mild likely secondary to above infection. I think he is also perhaps a bit volume depleted perhaps secondary to his mild cognitive impairment plus his spouse is recent absence from the home for her own illness. Will continue with some gentle IV fluids (normal saline), he was given fluids in the ER as well. 3. Hypothyroidism-continue patient's usual medication 4. BPH with LUTS-continue patient's tamsulosin 5. Mild cognitive impairment-patient does continue on Namenda which was started prior to my assuming his care. He and his family been resistant to him discontinuing this. Not convinced there is actual benefit to continuing on Namenda with his limited diagnosis but certainly at this point will continue that for now. Patient does show evidence of some encephalopathy at this time likely multifactorial but including his significant pneumonia/infection as well as his underlying cognitive impairment etcetera. Hopefully this will clear as we treat his infectious issues as above. 6. VTE prophylaxis-Lovenox has been ordered and is entirely appropriate 7. Code status-patient unsure about his status. Per patient's son he does have a POLST form at home but he does not know what the form shows. Per our records was signed [place] [address] Garcia's prior PCP and he would desire no resuscitation. This makes sense I think in the current situation even though there is no reason to believe such event is imminent I will make him a no code for the purposes this hospitalization based on the POLST form. Will re verify with family tomorrow once he had a chance to review the original at home 8. Disposition-patient likely be able to return home after appropriate treatment for his pneumonia. Continue with above treatments and consider physical therapy for evaluation as well. Long-term however patient likely would benefit from placement in alternate living facility such as assisted living and would advocate for that as necessary as it appears his cognitive function is declining over time not unexpectedly. Patient deserves inpatient hospitalization given his sudden onset of symptoms his prominent leukocytosis his risk for sudden deterioration and inability to be cared for in the home setting. He will likely be in the hospital greater than 48 hours to include 2 separate midnights COVID-19 COVID-19 status: Negative Result date/Date tested (Pos, Neg/Pending): 01/14/22
[2022-01-14] MEDS: AZITHROMYCIN 500 MG in DEXTROSE 5% IN WATER 250 ML 250 MG IV (14:12)
[2022-01-14 14:42] LABS: COVID-19 CEPHEID 4-PLEX PCR Negative (Negative); Influenza A - CEPHEID Flu A NEGATIVE (NEGATIVE); Influenza B - CEPHEID Flu B NEGATIVE (NEGATIVE); Respiratory Syncytial Virus Negative (Negative)
[2022-01-14] MEDS: TAMSULOSIN 0.4 MG CAPSULE 0.8 MG PO (18:22)
[2022-01-14] MEDS: DEXTROSE 5%-0.9% NS 1,000 ML 75 ML IV (18:22)
[2022-01-14] MEDS: ACETAMINOPHEN 325 MG TABLET 650 MG PO (18:33)
--- NOTE | 2022-01-14 18:35 | PC.NURSE ---
Addendum entered by Yissel Adame R.N. 01/14/22 19:39: Called Dr. John answering service to inform Dr. John that the pt's temperature had increased to 100.3F orally and has come back down to 98F orally. Dr. John immediately called this RN and back and informed him of the following changes and pt's response to the interventions. Informed Dr. John that the pt's oxygen had to be increased from 2L NC to 6L NC due to the fact that the SpO2 was 86-88% on 2L and with the pt on 6L O2 his SpO2 has been between 92-94% and pt's tachycardia had improved as well with the increased oxygen and Tylenol. Informed Dr. John that the pt is hallucinating and seeing bugs crawling around on the floor and per Dr. John the hallucinations are new for the pt. Dr. John recommended continuing to monitor the pt and to do what was necessary to keep the pt's fever/temperature down and within normal ranges. Informed oncoming RN of the conversation and recommendations from Dr. John. Original Note: Pt arrived to unit at 1552 via stretcher from the ED. Pt is extremely B[place], needs to be spoken to very slowly as well. Pt has hearing aides at home and this RN requested that the son bring the hearing aides in tomorrow. Pt has a 20G IV in his L forearm that is SL. Pt is alert to self only and was unable to provide medical hx. Pt's medical hx was obtained by the pt's son. Pt arrived on O2 at 2L via NC. His originally pulse ox was 87% on 2L and this RN increased O2 up to 6L NC and pt's SpO2 has remained stabled between 92-94%. Pt was oriented to the room, how to use the call light, to use the urinal, how the lights and TV work as well. Pt has clothing and no other personal items with him. Will continue to monitor the pt.
[2022-01-14] MEDS: MEMANTINE HCL 5 MG TABLET PO (21:32)
--- NOTE | 2022-01-14 23:45 | PC.NURSE ---
Pt. regan coleman rechecked his blood pressure 80/42, denies any pain or discomfort, no C/o dyspnea & dizziness. Dr. John notified via answering service. Awaiting to talk to .
[2022-01-15] VITALS (9 sets, daily range): BP systolic 91–133; BP diastolic 46–69; PULSE 63–85; RESP 18–20; TEMP 36.6–37.1; O2SAT 92–95
[2022-01-15] MEDS: SODIUM CHLORIDE 0.9% 500 ML 1000 ML IV (00:06)
[2022-01-15] MEDS: DEXTROSE 5%-0.9% NS 1,000 ML 125 ML IV ×3 (01:36→15:47)
--- NOTE | 2022-01-15 01:54 | PC.NURSE ---
After the bolus of 500 cc NS completed, increased his IVF D5NS to 125 cc/hr. Rechecked his B/P 95/69 & HR. of 76, did not C/O any discomfort. Will cont. with POC & monitor.
[2022-01-15] MEDS: LEVOTHYROXINE 75 MCG TABLET PO (05:29)
--- NOTE | 2022-01-15 07:29 | DI.RAD.S_ITS ---
PROCEDURE: XR CHEST 1V INDICATIONS: pneumonia TECHNIQUE: One view of the chest was acquired. COMPARISON: [facility], , CHEST 2 VIEW, 11/07/2013, 11:58. [facility], , XR CHEST 1V, 01/14/2022, 10:21. FINDINGS: Surgical changes and devices: None. Lungs and pleura: Right perihilar and lower lobe infiltrates and left lower lobe infiltrates consistent with bilateral pneumonia. Mild bilateral interstitial prominence. Possible trace pleural effusions bilaterally. No pneumothorax. Mediastinum: Mediastinal contours appear normal. Heart size is normal. Bones and chest wall: No suspicious bony lesions. Overlying soft tissues appear unremarkable. IMPRESSION: 1. Bilateral pneumonia. Dictated by: Esau Ambrocio M.D. on 01/15/2022 at 8:19 Approved by: Esau Ambrocio M.D. on 01/15/2022 at 8:20
--- NOTE | 2022-01-15 07:34 | PM.PN.1 ---
Subjective Subjective Date Patient Seen: 01/15/22 Time Patient Seen: 07:34 Interval history: Patient became somewhat more confused with some hallucinations last evening. He also became hypotensive but improved with IV fluid bolus. Lowest blood pressure measured was 80 systolic. Patient also spiked low-grade fever and has a an increased oxygen requirement No new complaints or issues Cultures are negative thus far This morning he sitting up eating breakfast looks to be much improved looks brighter frankly looks like he could go home accept a course he has an oxygen requirement and is still getting the IV antibiotics Exam Vital Signs (past 8 hours): - 01/15/22 01:53 01/14/22 23:45 01/15/22 05:57 Temperature 97.9 F Pulse Rate 76 55 L 63 Respiratory Rate 20 Blood Pressure 95/69 80/42 L 103/46 L Pulse Oximetry 93 Oxygen Flow Rate 5 Oxygen Delivery Method Nasal Cannula Oxygen Flow Rate 5 Objective Labs Result Diagrams: 01/14/22 09:40 01/14/22 09:40 Labs: Laboratory Results - last 24 hr 01/14/22 01/14/22 01/14/22 09:40 09:40 09:40 WBC 19.1 H RBC 4.17 L Hgb 12.9 L Hct 39.1 L MCV 93.8 MCH 30.9 MCHC 32.9 RDW 13.4 Plt Count 174 Neut % (Auto) 92.6 H Lymph % (Auto) 2.0 L [place] % (Auto) 4.7 Eos % (Auto) 0.2 L Baso % (Auto) 0.5 Neut # (Auto) 72759 H Lymph # (Auto) 400 L [place] # (Auto) 900 Eos # (Auto) 0 Baso # (Auto) 100 PT INR Sodium 132 L Potassium 3.5 Chloride 98 Carbon Dioxide 27 BUN 22 H Creatinine 0.75 Estimated GFR > 60 BUN/Creatinine Ratio 29.3 H Glucose 90 Lactate 1.1 Calcium 8.6 Magnesium Total Bilirubin 1.2 AST 25 ALT 18 Alkaline Phosphatase 70 Total Creatine Kinase CK-MB (CK-2) CK-MB (CK-2) Rel Index Troponin I < 0.012 C-Reactive Protein NT-Pro-B Natriuret Pep Total Protein 7.0 Albumin 3.9 Globulin 3.1 Albumin/Globulin Ratio 1.3 Procalcitonin Urine Color Urine Appearance Urine pH Ur Specific [place] Urine Protein Urine Glucose (UA) Urine Ketones Urine Occult Blood Urine Nitrate Urine Bilirubin Urine Urobilinogen Ur Leukocyte Esterase Urine RBC Urine WBC Ur Squamous Epith Cells Urine Bacteria Ur Culture Indicated? SARS-CoV-2 (PCR) Influenza A (RT-PCR) Influenza B (RT-PCR) RSV (PCR) 01/14/22 01/14/22 01/14/22 09:40 09:40 09:40 WBC RBC Hgb Hct MCV MCH MCHC RDW Plt Count Neut % (Auto) Lymph % (Auto) [place] % (Auto) Eos % (Auto) Baso % (Auto) Neut # (Auto) Lymph # (Auto) [place] # (Auto) Eos # (Auto) Baso # (Auto) PT 14.3 H INR 1.2 Sodium Potassium Chloride Carbon Dioxide BUN Creatinine Estimated GFR BUN/Creatinine Ratio Glucose Lactate Calcium Magnesium 1.6 Total Bilirubin AST ALT Alkaline Phosphatase Total Creatine Kinase 186 H CK-MB (CK-2) 2.21 CK-MB (CK-2) Rel Index 1.2 L Troponin I < 0.012 C-Reactive Protein 1.4 H NT-Pro-B Natriuret Pep 614 H Total Protein Albumin Globulin Albumin/Globulin Ratio Procalcitonin 1.36 H Urine Color Urine Appearance Urine pH Ur Specific [place] Urine Protein Urine Glucose (UA) Urine Ketones Urine Occult Blood Urine Nitrate Urine Bilirubin Urine Urobilinogen Ur Leukocyte Esterase Urine RBC Urine WBC Ur Squamous Epith Cells Urine Bacteria Ur Culture Indicated? SARS-CoV-2 (PCR) Influenza A (RT-PCR) Influenza B (RT-PCR) RSV (PCR) 01/14/22 01/14/22 13:17 13:23 WBC RBC Hgb Hct MCV MCH MCHC RDW Plt Count Neut % (Auto) Lymph % (Auto) [place] % (Auto) Eos % (Auto) Baso % (Auto) Neut # (Auto) Lymph # (Auto) [place] # (Auto) Eos # (Auto) Baso # (Auto) PT INR Sodium Potassium Chloride Carbon Dioxide BUN Creatinine Estimated GFR BUN/Creatinine Ratio Glucose Lactate Calcium Magnesium Total Bilirubin AST ALT Alkaline Phosphatase Total Creatine Kinase CK-MB (CK-2) CK-MB (CK-2) Rel Index Troponin I C-Reactive Protein NT-Pro-B Natriuret Pep Total Protein Albumin Globulin Albumin/Globulin Ratio Procalcitonin Urine Color Yellow Urine Appearance Slightly cloudy Urine pH 6.0 Ur Specific [place] 1.010 Urine Protein Trace H Urine Glucose (UA) Negative Urine Ketones 2+ H Urine Occult Blood Trace-intact Urine Nitrate Negative Urine Bilirubin Negative Urine Urobilinogen 0.2 Ur Leukocyte Esterase Trace H Urine RBC 0-1/hpf Urine WBC 1-5/hpf Ur Squamous Epith Cells 0-1 /hpf Urine Bacteria Occasional (0-1) Ur Culture Indicated? Specimen cultured SARS-CoV-2 (PCR) Negative Influenza A (RT-PCR) Flu a negative Influenza B (RT-PCR) Flu b negative RSV (PCR) Negative PFSH Medical History Actinic keratosis (1993) BPH w urinary obs/LUTS Chronic back pain (1969) Excessive daytime sleepiness Head ache Hearing impairment (1997) Hemorrhoids (1969) History of basal cell carcinoma (BCC) of skin (01/20/17) History of SCC (squamous cell carcinoma) of skin (1987) Hyperthyroidism (2012) Memory impairment Microscopic hematuria Mild cognitive impairment Mitral regurgitation Mitral valve prolapse Obstructive sleep apnea of adult Skin cancer (1974) 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 Surgical History Anesthesia History of cataract removal with insertion of prosthetic lens (2012) History of squamous cell carcinoma excision (2013) History of squamous cell carcinoma excision (1987) History of transurethral resection of prostate Hx of circumcision Hx of vasectomy Status post hernia repair (1979) Status post hernia repair (1987) Status post Mohs surgery for basal cell carcinoma (03/09/17) Status post tonsillectomy and adenoidectomy (1941) Family History Brother Age: 76 Skin cancer Father Metastatic cancer to brain Respiratory failure Mother Cancer Alzheimer's disease Aspiration pneumonia Sister Age: 84 Alzheimer's disease Social History marital status: (to Virgen, lives in [place]) number of children: 3 household members: spouse lives independently: Yes caregiver/support person: Yes (Virgen reminds me when I forget) Smoking Status: Former smoker alcohol intake: never substance use type: does not use caffeine: Yes Type(s) of exercise: regular exercise frequency: daily Assessment & Plan Assessment & Plan narrative: 1. Community-acquired pneumonia-continue with current IV antibiotics which are azithromycin. Patient also had an increase in his oxygen requirement yesterday. I am planning to repeat chest x-ray specially now after some hydration and try and review the degree of pneumonia that is present. 2. Hyponatremia-I chose not to repeat numbers this morning presuming it would improve with fluids etcetera. Plan to recheck tomorrow. 3. Metabolic encephalopathy/delirium-likely multifactorial secondary to patient's illness maybe some degree of hypoxia his underlying cognitive disorder etcetera. Continue to provide supportive care and try and void medication unless patient becomes extremely agitated 4. Code status-patient's POLST form was located and indicated a do not resuscitate status. That remains his current status 5. Weakness-as able will initiate physical therapy Note: Greater than 30 minutes total time was spent on day of service, evaluating the patient on the floor, including examining the patient, discussing clinical course with clinical and nursing staff, reviewing clinical course in the computer, preparing documentation and writing orders for continued management of care, discussing status with family as appropriate, reviewing plans for the next 24 hours with both patient/family and nursing staff as appropriate. Quality VTE Deep Vein Thrombosis/Pulmonary Embolism Present on Admission: No
[2022-01-15] MEDS: MEMANTINE HCL 5 MG TABLET PO ×2 (09:08→20:57)
[2022-01-15] MEDS: ENOXAPARIN 40 MG/0.4 ML SYRINGE SUBCUT (09:08)
[2022-01-15] MEDS: CHOLECALCIFEROL (VITAMIN D3) 1,000 UNIT TABLET 1000 UNIT PO (09:08)
[2022-01-15] MEDS: PRAVASTATIN 20 MG TABLET 10 MG PO (09:08)
--- NOTE | 2022-01-15 09:25 | CM.DANOTE ---
DCP Assessment: Payor confirmed: Gagandeep PCP confirmed: MD Alvaro Pt is an 86 y.o. M who presented to the ER with alterned mental status and weakness. Pt admitted to the floor for pneumonia management and workup. DCP met with pt this morning to discuss needs. Pt sitting up in bed eating breakfast. DCP introduced herself and role. Pt states that he is normally independent at baseline and lives with his spouse in a single story house here in [place]. Pt states that his uses a walker but he has never used one until this hospital stay. Pt states that he still drives POV. Pt states that Dr. John was just in to talk with him and they he would be staying another night. DCP verbalized to pt that she was to update the white board with her contact info and pt states, I don't have a phone. Pt became tearful when DCP brought hospital phone to his bedside and pt states, this is the best news I have gotten all day. Pt to use the phone to contact his and daughter today. Pt has no other needs at this time. DCP to continue to follow case. P: Pt to stay one another night and anticipate discharge tomorrow 01/16 back home via family POV. Pt to work with PT today. Sharron Bills RN/HENRI Discharge Planning/Care Management CM Discharge Assessment Start: 01/15/22 09:15 Freq: Status: Active Protocol: Document 01/15/22 09:24 SHERIN (Rec: 01/15/22 09:25 [id number]) Discharge Planning Assessment Assigned Respiratory Therapy Instructor Sharron Bills RN/HENRI Advance Directives? Yes Advance Directives on File No History Provided By Family Member Prior Living Arrangements House Household Members spouse Type of transporation used prior to Drives own vehicle admit Independent with ADL's Yes Is patient alert and oriented? Yes Caregiver for Another Discharge Plan Home Transportation Arrangement Family POV Referrals Initiated None needed Additional Comment At this time. Whiteboard Updated in Patient Room with Yes name and ext. # of Respiratory Therapy Instructor Comment Instructed to call Review Status In Process Please Provide Date Initial DC 01/15/22 Assessment Was Performed Next Review Type Continued Stay Review
--- NOTE | 2022-01-15 10:10 | PT.IIE ---
Current Diagnoses Sepsis, unspecified organism (01/14/22) Surgical History (Last Reviewed 01/14/22 @ 14:06 by Lexx John MD) Anesthesia History of cataract removal with insertion of prosthetic lens (2012) History of squamous cell carcinoma excision (2013) History of squamous cell carcinoma excision (1987) History of transurethral resection of prostate Hx of circumcision Hx of vasectomy Status post hernia repair (1979) Status post hernia repair (1987) Status post Mohs surgery for basal cell carcinoma (03/09/17) Status post tonsillectomy and adenoidectomy (1941) Medical History (Last Reviewed 01/14/22 @ 14:06 by Lexx John MD) Actinic keratosis (1993) BPH w urinary obs/LUTS Chronic back pain (1969) Excessive daytime sleepiness Head ache Hearing impairment (1997) Hemorrhoids (1969) History of basal cell carcinoma (BCC) of skin (01/20/17) History of SCC (squamous cell carcinoma) of skin (1987) Hyperthyroidism (2012) Memory impairment Microscopic hematuria Mild cognitive impairment Mitral regurgitation Mitral valve prolapse Obstructive sleep apnea of adult Skin cancer (1974) 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 Physical Therapy Inpatient Evaluation/Re-Eval M1 PT/OT-IP Prior Functional Status Start: 01/15/22 13:13 Freq: NEEDED Status: Active Protocol: Document 01/15/22 10:10 AB (Rec: 01/15/22 13:24 AB [id number]) Medical Review Prior Functional Status Medical History Reviewed Yes Communication able to make needs known but with confusion and HOB Mobility and Gait pt stated that he is independent with all mobilities and ambulation without AD Social History Household Members spouse Living Arrangements House Number of Floors (Floors) One Floor Number of Stairs To Enter/Railing? 4 steps with wide rails Home Environment Standard Height Toilet,Walk in Shower Home Equipment Grab Bars Near Toilet,Grab Bars In Shower Additional Social History Comment spouse has back problems per pt and uses a FWW : spouse will not be able to assist pt at home M2 PT-IP Current Condition Start: 01/15/22 13:13 Freq: NEEDED Status: Active Protocol: Document 01/15/22 10:10 AB (Rec: 01/15/22 13:24 AB [email or web address]) Physical Therapy Current Condition Current Condition Evaluation Date 01/15/22 Treatment Diagnosis Sepsis; PNA; difficulty in walking Onset Date 01/14/2022 M3 PT-IP Subjective Start: 01/15/22 13:13 Freq: NEEDED Status: Active Protocol: Document 01/15/22 10:10 AB (Rec: 01/15/22 13:24 AB [id number]) Subjective Physical Therapy Visit Type Type Initial Evaluation Visit Start Time 10:10 Visit Stop Time 10:40 Total Visit Minutes 30 Number of MANAGER OFFICE SERVICES Visits 0 Physical Therapy Visit Comments Patient Comments agreeable to do PT Therapy Pain Assessment Pain When Pain Assessed At Rest Location Left Hip Intensity 4 Scale Used Numeric (0 - 10) Pain Management Techniques Distraction,Modification of Treatment,Re-positioning, Timing of Activity with Medications M4 PT-IP Mobility and Gait Start: 01/15/22 13:13 Freq: NEEDED Status: Active Protocol: Document 01/15/22 10:10 AB (Rec: 01/15/22 13:24 AB [id number]) PT-Bed Mobility Assessment Supine to Sit Supine to Sit Minimal Assistance PT-Transfer Assessment Sit to and From Stand Sit to and from Stand Moderate Assistance,1 Person Assistance,Use of Upper Extremities Equipment Transfer Assistive Device Gait Belt,Front Wheeled Walker Orthotic/Prosthetic Devices or Brace: No Transfers Transfer Destination Chair Transfer Technique Stand Step Pivot Transfer Ability Level of Assist Moderate Assistance,1 Person Assistance,Use of Upper Extremities Comments Mobility Comments BP in supine: 105/61 . pt is MARSHALL and with slight confusion affecting safety awareness. completed supine to sti min A and cues. able to sit on EOB CGA. no c/o dizziness. BP in sittin/61. pt completed sit to stand mod A and step transfer to pelon using FWW mod A and cues. pt agreed to ambulate and completed sit to stand from chair mod A and ambulated ~ 10 ft using FWW mod A and cues. presents with unsteady gait with decrease LE elevation. ( +) SOB with O2 on and O2 sat ~ 94%. pt agreed to sit up on the chair and positioned. call light and table placed within reach. informed NAC that pt will need a chair alarm. Gait Assessment Gait Gait Assistance Required: Moderate Assistance Distance (Feet) 10 Able to Maintain Weight Bearing Status Yes During Gait Assistive Devices Assistive Device Gait Belt,Front Wheeled Walker Orthotic/Prosthetic Devices or Brace: No Gait Deviations General Gait Pattern Ataxic,Decreased Stride Length ,Decreased Feet Clearance, Flexed Trunk,Step-to Gait Factors Limiting Gait Function Factors Limiting Gait Function Decreased Activity Tolerance, Decreased Strength,Difficulty Following Directions,Limited Range of Motion,Pain,Poor Balance,Poor Safety Awareness, Respiratory Distress PT-Balance Assessment Sitting Balance and Reactions Static Sitting Balance Ability Good Dynamic Sitting Balance Ability Fair Standing Balance and Reactions Static Standing Balance Ability Fair Dynamic Standing Balance Ability Poor Device Used FWW M5 PT-IP Objective Assessments Start: 01/15/22 13:13 Freq: NEEDED Status: Active Protocol: Document 01/15/22 10:10 AB (Rec: 01/15/22 13:24 AB [id number]) Orientation Orientation/Cognition Level of Alertness Alert Orientation Name Safety Awareness Decreased Safety Awareness Memory Description Short Term Impaired Comments with confusion Gross Range of Motion Lower Extremity ROM Assessment Within Functional Limits Strength Lower Extremity Strength Hip 4-/5 Knee 4-/5 Sensation Assessment Sensation Gross Sensation WNL Muscle Tone Muscle Tone WNL Yes M6 PT-IP Treatment Start: 01/15/22 13:13 Freq: NEEDED Status: Active Protocol: Document 01/15/22 10:10 AB (Rec: 01/15/22 13:24 AB [email or web address]) Physical Therapy Treatment Education Education Provided Safety M7 PT-IP Assessment and Plan Start: 01/15/22 13:13 Freq: NEEDED Status: Active Protocol: Document 01/15/22 10:10 AB (Rec: 01/15/22 13:24 AB [email or web address]) PT Summary Assessment and Plan Potential Rehabilitation Potential Fair Status of Condition at Evaluation Evolving Summary Impairments Pain,ROM,Strength,Balance, Coordination,Sensation,Tone, Cognition,Bed Mobility, Transfers,Gait,Activity Tolerance Assessment Summary pt requiring mod A with mobility using FWW and needs max cues with all tasks for safety. pt will require SNF rehab to improve overall strength and mobility independence. will continue to assess progress. Goals Bed Mobility Goal Independent Transfer Goal Independent,Front Wheeled Walker Gait Goal Independent,Front Wheel Walker Gait Distance 150 Other Goals improve ambulation without AD 150 ft SBA up/down 4 steps 1 rail SBA Days to Meet Goals 10 Frequency of Treatment Frequency Of Treatment Once a Day Treatment Plan Physical Therapy Treatment Plan Bed Mobility Training,Transfer Training,Gait Training, Therapeutic Exercise,Balance Retraining,Discharge Planning, Hot or Cold Pack,Neuromuscular Re-ed,Coordination Retraining Precautions Other Precautions falls Recommendations To Nursing Amount of Assist Needed 1 Person Assist Discharge Recommendations PT Discharge Recommendations SNF Rehab Equipment Needed for Home Before FWW if not safe without AD Discharge Transportation Needs at Discharge Wheelchair/Cabulance
[2022-01-15] MEDS: AZITHROMYCIN 500 MG in DEXTROSE 5% IN WATER 250 ML 250 MG IV (11:33)
[2022-01-15] MEDS: MAGNESIUM HYDROXIDE 30 ML UDC PO (11:33)
[2022-01-15] MEDS: TAMSULOSIN 0.4 MG CAPSULE 0.8 MG PO (17:39)
[2022-01-15] MEDS: DEXTROSE 5%-0.9% NS 1,000 ML 80 ML IV (17:40)
[2022-01-16] MEDS: LEVOTHYROXINE 75 MCG TABLET PO (05:41)
[2022-01-16 07:00] VITALS: O2SAT 92
[2022-01-16 07:19] LABS: Add Manual Diff / Slide Review NO; Basophils Absolute Auto 100 /uL (0-100); Basophils Percent Auto 0.4 % (0-2); Eosinophils Absolute Auto 0 /uL (0-450); Eosinophils Percent Auto 0.2 % (2-4); Hematocrit 36.6 % (41-53); Hemoglobin 12.2 g/dL (13.5-17.5); Lymphocytes Absolute Auto 1000 /uL (1100-4500); Lymphocytes Percent Auto 6.3 % (25-40); Mean Corpuscular HGB Conc 33.2 % (30-36); Mean Corpuscular Hemoglobin 30.7 PG (26-34); Mean Corpuscular Volume 92.5 fL (80-100); Monocytes Absolute Auto 800 /uL (0-900); Neutrophils Absolute Auto 14600 /uL (1500-7000); Neutrophils Percent Auto 88.1 % (50-75); Platelet Count 148 X10^3/uL (150-400); Red Blood Cell Count 3.96 X10^6/uL (4.5-5.9); Red Cell Distribution Width 13.8 % (11.6-14.8); White Blood Cell Count 16.6 X10^3/uL (4.5-11.0)
[2022-01-16 07:29] LABS: BUN Creatinine Ratio 21.2 (6-22); Blood Urea Nitrogen 14 mg/dL (9-20); Calcium 7.4 mg/dL (8.4-10.2); Carbon Dioxide 22 mmol/L (22-32); Chloride 107 mmol/L (98-107); Estimated Glomerular Filt Rate > 60 mL/min (>60); Glucose 90 mg/dL (80-110); HEMOLYSIS < 15 (0-50); Potassium 3.5 mmol/L (3.4-5.1); Sodium 136 mmol/L (137-145)
--- NOTE | 2022-01-16 08:06 | PM.PN.1 ---
Subjective Subjective Date Patient Seen: 01/16/22 Time Patient Seen: 08:06 Interval history: Patient seen this morning had a good night last night blood pressure stable. Still some confusion. Wanted to know when his is going to come in. Says he would like to go home. Still requiring some oxygen. Says he has a good appetite. Exam Vital Signs (past 8 hours): Fraction of Inspired Oxygen 36 SaO2/FiO2 Ratio 258 Oxygen Delivery Method Nasal Cannula Oxygen Flow Rate 4 Narrative Exam Narrative: Gen.: Alert confused which I guess his baseline HEENT: Pupils equal round and reactive or mucosa is moist neck is supple Cardio: Regular rate and rhythm Respiratory: Bilateral rhonchi mild increased work of breathing Abdomen: Soft and nontender Extremities: No edema warm dry perfused Objective Labs Result Diagrams: 01/16/22 07:00 01/16/22 07:00 Labs: Laboratory Results - last 24 hr 01/16/22 01/16/22 07:00 07:00 WBC 16.6 H RBC 3.96 L Hgb 12.2 L Hct 36.6 L MCV 92.5 MCH 30.7 MCHC 33.2 RDW 13.8 Plt Count 148 L Neut % (Auto) 88.1 H Lymph % (Auto) 6.3 L [place] % (Auto) 5.0 Eos % (Auto) 0.2 L Baso % (Auto) 0.4 Neut # (Auto) 79605 H Lymph # (Auto) 1000 L [place] # (Auto) 800 Eos # (Auto) 0 Baso # (Auto) 100 Sodium 136 L Potassium 3.5 Chloride 107 Carbon Dioxide 22 BUN 14 Creatinine 0.66 Estimated GFR > 60 BUN/Creatinine Ratio 21.2 Glucose 90 Calcium 7.4 L [facility] Medical History Actinic keratosis (1993) BPH w urinary obs/LUTS Chronic back pain (1969) Excessive daytime sleepiness Head ache Hearing impairment (1997) Hemorrhoids (1969) History of basal cell carcinoma (BCC) of skin (01/20/17) History of SCC (squamous cell carcinoma) of skin (1987) Hyperthyroidism (2012) Memory impairment Microscopic hematuria Mild cognitive impairment Mitral regurgitation Mitral valve prolapse Obstructive sleep apnea of adult Skin cancer (1974) 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 Surgical History Anesthesia History of cataract removal with insertion of prosthetic lens (2012) History of squamous cell carcinoma excision (2013) History of squamous cell carcinoma excision (1987) History of transurethral resection of prostate Hx of circumcision Hx of vasectomy Status post hernia repair (1979) Status post hernia repair (1987) Status post Mohs surgery for basal cell carcinoma (03/09/17) Status post tonsillectomy and adenoidectomy (1941) Family History Brother Age: 76 Skin cancer Father Metastatic cancer to brain Respiratory failure Mother Cancer Alzheimer's disease Aspiration pneumonia Sister Age: 84 Alzheimer's disease Social History marital status: (to Virgen, lives in [place]) number of children: 3 household members: spouse lives independently: Yes caregiver/support person: Yes (Virgen reminds me when I forget) Smoking Status: Former smoker alcohol intake: never substance use type: does not use caffeine: Yes Type(s) of exercise: regular exercise frequency: daily Assessment & Plan Assessment and plan (1) Pneumonia: Qualifiers: Laterality: right Lung location: lower lobe of lung Pneumonia type: due to unspecified organism Qualified Code(s): J18.9 - Pneumonia, unspecified organism Status: Acute Plan Pneumonia community-acquired. Currently on IV antibiotics still requiring oxygen. Which is not normal for him. Reviewed chest x-ray this morning which shows bilateral pneumonia. Will go ahead and stop IV fluid continue with IV antibiotics up ambulate today hopefully we can stop his oxygen requirement and he will be ready to go home tomorrow. Hyponatremia we can recheck his sodium this next morning to make sure that it is not gone lower. Dementia with acute metabolic encephalopathy. Patient has mild dementia at home which is worsened here in the hospital due to his underlying hypoxia and pneumonia. BPH with no difficulty of urination at this time. Continue with Flomax Hypothyroidism continue with thyroid replacement Cognitive decline continue with his current Namenda VTE prophylaxis with Lovenox Disposition and plan. Weaned from oxygen today continue with antibiotics hopefully home tomorrow Time Spent With Patient Critical Care time: I spent a total of [] minutes of critical care time on this patient's care today; this time is exclusive of procedural time. Quality VTE Deep Vein Thrombosis/Pulmonary Embolism Present on Admission: No
[2022-01-16 08:17] VITALS: O2SAT 93
[2022-01-16 08:19] VITALS: BP 121/63; PULSE 66; RESP 17; TEMP 36.6; O2SAT 94
[2022-01-16] MEDS: PRAVASTATIN 20 MG TABLET 10 MG PO (09:15)
[2022-01-16] MEDS: MEMANTINE HCL 5 MG TABLET PO ×2 (09:16→20:53)
[2022-01-16] MEDS: CHOLECALCIFEROL (VITAMIN D3) 1,000 UNIT TABLET 1000 UNIT PO (09:16)
[2022-01-16] MEDS: ENOXAPARIN 40 MG/0.4 ML SYRINGE SUBCUT (09:16)
--- NOTE | 2022-01-16 10:58 | CM.DPC ---
Addendum entered by Sharron Bills R.N. 01/16/22 13:48: Pt accepted at [facility] for Tuesday01/16/22. Updated pt and will update pt spouse and daughter. Sharron Bills RN/DCP Addendum entered by Sharron Bills R.N. 01/16/22 12:57: [facility] Auth# [id number] ADJ Addendum entered by Sharron Bills R.N. 01/16/22 11:48: Spoke with pt and family this morning to discuss plan for discharge. Pt and daughter at the bedside. Explained that the plan is to send pt to SNF and DCP is awaiting insurance approval and SNF for acceptance. Their first choice is [facility]. DCP verbalized only certain facilities accept pt insurance. They verbalized understanding. DCP to keep family updated with plan as new information comes along. ADJ Original Note: DCP Cont: Per PT, pt is needing SNF. Pt has [facility] insurance and DCP submitted for authorization this morning. Awaiting decision from [facility]. DCP to start searching for SNF facility for pt acceptance. Sharron Bills RN/DCP
[2022-01-16] MEDS: AZITHROMYCIN 500 MG in DEXTROSE 5% IN WATER 250 ML 250 MG IV (12:15)
[2022-01-16 12:50] VITALS: BP 148/66; PULSE 88; RESP 18; TEMP 37.3; O2SAT 95
--- NOTE | 2022-01-16 13:24 | PT.IPTN ---
Current Diagnoses Sepsis, unspecified organism (01/14/22) Pneumonia, unspecified organism (01/14/22) Physical Therapy Treatment Note M2 PT-IP Current Condition Start: 01/15/22 13:13 Freq: NEEDED Status: Active Protocol: Document 01/15/22 10:10 AB (Rec: 01/15/22 13:24 AB [id number]) Physical Therapy Current Condition Current Condition Evaluation Date 01/15/22 Treatment Diagnosis Sepsis; PNA; difficulty in walking Onset Date 01/14/2022 M3 PT-IP Subjective Start: 01/15/22 13:13 Freq: NEEDED Status: Active Protocol: Document 01/16/22 12:43 LJ (Rec: 01/16/22 13:24 LJ [id number]) Subjective Physical Therapy Visit Type Type Treatment Note Visit Start Time 12:19 Visit Stop Time 12:42 Total Visit Minutes 23 Notes Pt wanting to get up nd go to the bathroom. Number of BOATBUILDER APPRENTICE WOOD Visits 1 Physical Therapy Visit Comments Patient Comments agreeable to do PT Therapy Pain Assessment Pain When Pain Assessed At Rest Pain Present Pain Present Denied Pain M4 PT-IP Mobility and Gait Start: 01/15/22 13:13 Freq: NEEDED Status: Active Protocol: Document 01/16/22 12:43 LJ (Rec: 01/16/22 13:24 LJ [id number]) PT-Bed Mobility Assessment Rolling Type of Rolling Roll to Left Supine to Sit Supine to Sit Minimal Assistance,Moderate Assistance,1 Person Assistance ,2 Person Assistance,Head of Bed Elevated,Bedrails Sit to Supine Sit to Supine Contact Guard Assistance Scooting Scooting to Edge of Bed Contact Guard Assistance PT-Transfer Assessment Sit to and From Stand Sit to and from Stand Moderate Assistance,1 Person Assistance,2 Person Assistance ,Use of Upper Extremities Equipment Transfer Assistive Device Gait Belt,Front Wheeled Walker Orthotic/Prosthetic Devices or Brace: No Transfers Transfer Destination Bed,Bedside Commode Transfer Technique Stand Step Pivot Transfer Ability Level of Assist Moderate Assistance,1 Person Assistance,Use of Upper Extremities Comments Mobility Comments Pt lying in bed upon arrial. two CNAs in room. One ACCOUNT SUPPORT ANALYST states they were planning on hoyering pt to [facility] but there were no slings to be found. She stated pt too weak to stand. This therapist spoke to pt and he agreed to attempt to sit on the side of the bed and trial holding himself up in a seated position. Pt agreed. Pt able to move LEs to side of bed and get into seated position with HECTOR-MODA x2. Pt initially leaning backwards but with much cueing and putting feet on floor pt able to balance. Pt stood from bed MODAx2 with lots of cueing for foot and hand placement as well as posture. Pt able to demonstrte ability to lift feet in order to take several steps to BS. Pt sat down on BS with controlled descent. Pt had BM then stood from C HECTOR x1 nd stood for ~30 sec while ACCOUNT SUPPORT ANALYST performed pericare. Pt then able to take several steps forward, back, and sideways to bed properly position self to sit on bed. Pt sat on bed CGA and swung LEs into bed CGA. Pt able to lift buttocks to scoot up in bed. Gait Assessment Gait Gait Assistance Required: Moderate Assistance Distance (Feet) 4 Able to Maintain Weight Bearing Status Yes During Gait Assistive Devices Assistive Device Gait Belt,Front Wheeled Walker Orthotic/Prosthetic Devices or Brace: No Gait Deviations General Gait Pattern Ataxic,Decreased Stride Length ,Decreased Feet Clearance, Flexed Trunk,Step-to Gait Factors Limiting Gait Function Factors Limiting Gait Function Decreased Activity Tolerance, Decreased Strength,Difficulty Following Directions,Limited Range of Motion,Pain,Poor Balance,Poor Safety Awareness, Respiratory Distress Comments Gait Comments see mobility section M5 PT-IP Objective Assessments Start: 01/15/22 13:13 Freq: NEEDED Status: Active Protocol: Document 01/15/22 10:10 AB (Rec: 01/15/22 13:24 AB [id number]) Orientation Orientation/Cognition Level of Alertness Alert Orientation Name Safety Awareness Decreased Safety Awareness Memory Description Short Term Impaired Comments with confusion Gross Range of Motion Lower Extremity ROM Assessment Within Functional Limits Strength Lower Extremity Strength Hip 4-/5 Knee 4-/5 Sensation Assessment Sensation Gross Sensation WNL Muscle Tone Muscle Tone WNL Yes M6 PT-IP Treatment Start: 01/15/22 13:13 Freq: NEEDED Status: Active Protocol: Document 01/16/22 12:43 LJ (Rec: 01/16/22 13:24 LJ [id number]) Physical Therapy Treatment Exercises Exercises Ankle Pumps,Gluteal Sets,Quad Sets,Straight Leg Raises Education Education Provided Safety Other Treatments Other Treatment Performed pt performed 5 quad sets B while seated on BS and 8 SLR, 4 GS, 6 ankle pumps after returning to bed. Instructed pt to continue to perform exercises throughout the day to maintain LE strength. Pt verbalized understanding. M7 PT-IP Assessment and Plan Start: 01/15/22 13:13 Freq: NEEDED Status: Active Protocol: Document 01/16/22 12:43 LANE (Rec: 01/16/22 13:24 LANE [id number]) PT Summary Assessment and Plan Potential Rehabilitation Potential Fair Status of Condition at Evaluation Evolving Summary Impairments Pain,ROM,Strength,Balance, Coordination,Sensation,Tone, Cognition,Bed Mobility, Transfers,Gait,Activity Tolerance Assessment Summary pt initially requiring requiring mod A x2 with mobility hut once seated on side of bed he was able to hold himself up CGA-Hector and max VC. Pt stood using FWW max cues and took steps to BSC. Once pt stood from BSC he was able to get himself back to bed with less physical assistance but remained max cueing. Pt will require SNF rehab to improve overall strength and mobility independence. will continue to assess progress. Goals Bed Mobility Goal Independent Transfer Goal Independent,Front Wheeled Walker Gait Goal Independent,Front Wheel Walker Gait Distance 150 Other Goals improve ambulation without AD 150 ft SBA up/down 4 steps 1 rail SBA Days to Meet Goals 10 Frequency of Treatment Frequency Of Treatment Once a Day Treatment Plan Physical Therapy Treatment Plan Bed Mobility Training,Transfer Training,Gait Training, Therapeutic Exercise,Balance Retraining,Discharge Planning, Hot or Cold Pack,Neuromuscular Re-ed,Coordination Retraining Precautions Other Precautions falls Recommendations To Nursing Amount of Assist Needed 1 Person Assist Discharge Recommendations PT Discharge Recommendations SNF Rehab Equipment Needed for Home Before FWW if not safe without AD Discharge Transportation Needs at Discharge Wheelchair/Cabulance
[2022-01-16] MEDS: TAMSULOSIN 0.4 MG CAPSULE 0.8 MG PO (16:49)
[2022-01-16 19:00] VITALS: O2SAT 95
--- NOTE | 2022-01-16 19:12 | PC.NURSE ---
Addendum entered by Yissel Adame R.N. 01/16/22 19:59: Spoke to Dr. Khan about the safety concerns for the pt. Dr. Khan provided verbal order for safety restraints for the pt due to the pt's dementia and visual distrubances, continued attempts to get out of bed without the assistance of staff and staff being concerned that the pt would fall and injury himself due to the weakness. Dr. Khan also provided the verbal order for to discontinue the pt's IV fluids given that the pt is taking adequate oral fluids. Pt is unable to sit up without assistance let alone stand up with two person max assistance. Addendum entered by Yissel Adame R.N. 01/16/22 19:33: Pt has continued to place with his IV. Pt is taking in adequate PO fluids and keeping this down. IV fluids, D5NS @80 ml/hr, have been paused because the pt has attempted to pull out his IV. Attempted a second time to reach the on-call provider for Dr. John. Answering service says that it's Dr. Khan international relations professor and that they will reach Dr. Khan and request his to call the hospital back. If no return call then staff is to call the answering service back in 20 minutes. Original Note: Pt has attempted to jump out of the bed every 30-60 minutes. Staff has tried talking with the pt, having the TV on, distraction techniques, changing the bed location so the pt could be facing the window but the pt continues to attempt to jump out of the bed. Attempting to reach international relations professor provider for the pt. Pt continues to have worsening mental confusion and unable to reorient the pt. Pt may need safety restraints. No bed are open that are close to a nurses station. The pt believes that he's on cruise ship and wants to get off. Pt is also having visual delusions that there are bugs crawling around the room. Pt has been obsessed with having a BM today. Pt did have on earlier today when PT was assessing pt's physical strength. Pt has continued to be obsessed about having BMs to the point the pt has asked to manual dis-impact him and the pt attempted to manually dis-impact himself.
[2022-01-16 20:00] VITALS: BP 128/73; PULSE 86; RESP 18; TEMP 36.8; O2SAT 95
[2022-01-17] MEDS: LORazepam 2 MG/ML INJ 0.5 MG IV ×2 (01:30→07:41)
[2022-01-17] MEDS: ACETAMINOPHEN 325 MG TABLET 650 MG PO (01:30)
--- NOTE | 2022-01-17 08:04 | PM.PN.1 ---
Subjective Subjective Date Patient Seen: 01/17/22 Time Patient Seen: 08:05 Interval history: Patient seen and evaluated significant confusion throughout the night. Baseline dementia underneath. Respiratory status on 4-6 L nasal cannula. Not on oxygen at baseline. Mild increased work of breathing this morning. More confused than yesterday on my evaluation. Vital signs show normal blood pressure. Pulse rate 86 no temperature sats are within normal range on 6 L of oxygen. Patient looks like he is more short of breath today. Exam Vital Signs (past 8 hours): Fraction of Inspired Oxygen 36 SaO2/FiO2 Ratio 258 Oxygen Delivery Method Oximask Oxygen Flow Rate 6 Narrative Exam Narrative: Gen.: Confused HEENT: Pupils equal round and reactive or mucosa is moist Cardio: S1-S2 regular rate and rhythm systolic murmur present Respiratory: Rhonchorous breath sounds. Lower breath sounds are crackles increased work of breathing Abdomen: Soft no rebound no guarding Extremities: No edema warm dry perfused Objective Labs Result Diagrams: 01/16/22 07:00 01/16/22 07:00 [facility] Medical History Actinic keratosis (1993) BPH w urinary obs/LUTS Chronic back pain (1969) Excessive daytime sleepiness Head ache Hearing impairment (1997) Hemorrhoids (1969) History of basal cell carcinoma (BCC) of skin (01/20/17) History of SCC (squamous cell carcinoma) of skin (1987) Hyperthyroidism (2012) Memory impairment Microscopic hematuria Mild cognitive impairment Mitral regurgitation Mitral valve prolapse Obstructive sleep apnea of adult Skin cancer (1974) 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 Surgical History Anesthesia History of cataract removal with insertion of prosthetic lens (2012) History of squamous cell carcinoma excision (2013) History of squamous cell carcinoma excision (1987) History of transurethral resection of prostate Hx of circumcision Hx of vasectomy Status post hernia repair (1979) Status post hernia repair (1987) Status post Mohs surgery for basal cell carcinoma (03/09/17) Status post tonsillectomy and adenoidectomy (1941) Family History Brother Age: 76 Skin cancer Father Metastatic cancer to brain Respiratory failure Mother Cancer Alzheimer's disease Aspiration pneumonia Sister Age: 84 Alzheimer's disease Social History marital status: (to Virgen, lives in [place]) number of children: 3 household members: spouse lives independently: Yes caregiver/support person: Yes (Virgen reminds me when I forget) Smoking Status: Former smoker alcohol intake: never substance use type: does not use caffeine: Yes Type(s) of exercise: regular exercise frequency: daily Assessment & Plan Assessment and plan (1) Pneumonia: Qualifiers: Laterality: right Lung location: lower lobe of lung Pneumonia type: due to unspecified organism Qualified Code(s): J18.9 - Pneumonia, unspecified organism Status: Acute Plan Pneumonia community-acquired.? Currently on IV antibiotics adding ceftriaxone. To his Zithromax. Respiratory status has not improved. Check white blood cell count. Oxygen requirements are still little bit high. Continue with nasal cannula oxygen Pneumonia with bilateral pleural effusions. Stop IV fluids. Dose of IV Lasix today. See if this helps with respiratory status. Hyponatremia we can recheck his sodium ?Sodium level is low but in a stable range will continue to monitor. Stop IV fluids. Dementia with acute metabolic encephalopathy.? Acute confusion last night. Worsened yesterday. I think a combination of infection and respiratory status. Unfortunately required lorazepam. Still confused this morning. BPH with no difficulty of urination at this time.? Continue with Flomax Hypothyroidism continue with thyroid replacement Cognitive decline at baseline VTE prophylaxis with Lovenox Disposition and plan.? Worsening respiratory status and confusion. Add additional IV antibiotics today. Start IV Lasix for bilateral pleural effusions and hypoxia. His confusion is certainly complicating his care. Time Spent With Patient Critical Care time: I spent a total of [] minutes of critical care time on this patient's care today; this time is exclusive of procedural time. Quality VTE Deep Vein Thrombosis/Pulmonary Embolism Present on Admission: No
[2022-01-17 08:17] VITALS: O2SAT 93
[2022-01-17 08:34] VITALS: BP 94/53; PULSE 64; RESP 18; O2SAT 91
[2022-01-17] MEDS: cefTRIAXone 1,000 MG in SODIUM CHLORIDE 0.9% 100 ML 200 MG IV (08:36)
[2022-01-17] MEDS: AZITHROMYCIN 500 MG in DEXTROSE 5% IN WATER 250 ML 250 MG IV (11:38)
--- NOTE | 2022-01-17 16:28 | PT.IPTN ---
Current Diagnoses Sepsis, unspecified organism (01/14/22) Pneumonia, unspecified organism (01/14/22) Physical Therapy Treatment Note M2 PT-IP Current Condition Start: 01/15/22 13:13 Freq: NEEDED Status: Active Protocol: Document 01/17/22 15:42 SP (Rec: 01/17/22 17:20 SP [id number]) Physical Therapy Current Condition Current Condition Evaluation Date 01/15/22 Treatment Diagnosis Sepsis; PNA; difficulty in walking Onset Date 01/14/2022 M3 PT-IP Subjective Start: 01/15/22 13:13 Freq: NEEDED Status: Active Protocol: Document 01/17/22 15:42 SP (Rec: 01/17/22 17:20 SP [id number]) Subjective Physical Therapy Visit Type Type Treatment Note Visit Start Time 15:42 Visit Stop Time 16:28 Total Visit Minutes 46 Notes and son in room when arrived stated just getting ready to leave. Vitals: supine: PB 121/58 HR 80, SaO2 90-93% on 6L at rest. Mobility to [facility] BP 107/64 HR 87 SaO2 84-90% on6L NC with recovery to 90-91% on 6L within 1 min cues for slow breath smell flower lips closed. Number of DIRECTOR NEW PRODUCT Visits 2 Physical Therapy Visit Comments Patient Comments Pt agreeable to doing PT. Patient Goals Wanting to get up to commode to complete a BM. Therapy Pain Assessment Pain Present Pain Present Denied Pain M4 PT-IP Mobility and Gait Start: 01/15/22 13:13 Freq: NEEDED Status: Active Protocol: Document 01/17/22 15:42 SP (Rec: 01/17/22 17:20 SP [id number]) PT-Bed Mobility Assessment Rolling Type of Rolling Log Rolling,Roll to Right Level of Assist Moderate Assistance,1 Person Assistance Supine to Sit Supine to Sit Maximum Assistance,1 Person Assistance,Head of Bed Elevated,Bedrails Scooting Scooting to Edge of Bed Moderate Assistance,Maximum Assistance PT-Transfer Assessment Sit to and From Stand Sit to and from Stand Maximum Assistance,2 Person Assistance,Use of Upper Extremities Equipment Transfer Assistive Device Gait Belt,Front Wheeled Walker Orthotic/Prosthetic Devices or Brace: No Transfers Transfer Destination Chair,Bedside Commode Transfer Technique Stand Step Pivot Transfer Ability Level of Assist Maximum Assistance,2 Person Assistance,Use of Upper Extremities Comments Mobility Comments Pt elevated supine when arrived, family in room, left during vital assessment. Elevated supine> LR with hand over hand BUE to upper&lower bedrail support. Max A for trunk righting and scoot to EOB. Sit EOB CGA/Min with cues for trunk righting forward feet on floor and UE on bed self support. Sit>stand Max A x2 tactile and max cues for handplacement from bed/reach to sit with moderate/heavy retro lean. stand step pivot bed>BSC support for FWW mgt, brief mgt and Max A slow sit on BSC. provided pillow support behind for trunk stability support, pt tends to lean L more into elbow on BSC arm rest, cues for BUE and centering trunk SBA/CGA. Pt perseverated on wanting complete BM but unsuccessful. Sit>stand Max A x2, SPT 180 deg increase retro lean and decreased foot clearance at 90deg turn, stable B knee extension. Max A x2 to sit down into chair. Pt able to scoot back self in chair, propped pillows behind and L>R side for trunk alignment support due to L lean, elevated leg. DIRECTOR NEW PRODUCT discussed and assisted pt with use of drink, improved self with plastic cup with straw self place on/off tray and sip/gulp , mod cues swallow slowly, did well. Notifed nursing continue encourage drink water and watch for safety. Pt had call light and all needs in reach with chair alarm donned before left room. Provided waffle cushion on bed for skin integrity safety when pt returns to bed due to decreased mobility strength. Will continue to assess progress. Gait Assessment Gait Gait Assistance Required: Maximum Assistance,2 Person Assist Distance (Feet) 6 Able to Maintain Weight Bearing Status Yes During Gait Assistive Devices Assistive Device Gait Belt,Front Wheeled Walker Orthotic/Prosthetic Devices or Brace: No Gait Deviations General Gait Pattern Ataxic,Decreased Stride Length ,Decreased Feet Clearance, Flexed Trunk,Lateral Trunk Lean,Narrow Based Gait,Step-to Gait Factors Limiting Gait Function Factors Limiting Gait Function Decreased Activity Tolerance, Decreased Strength,Difficulty Following Directions,Limited Range of Motion,Pain,Poor Balance,Poor Safety Awareness, Respiratory Distress Comments Gait Comments Cued increase foot clearance, bigger steps during pivot. Pt increase retro and L lean this tx, tires quickly, best not greater than 90 deg pivot w/ FWW. Requires hand over head max cues for sequencing and body positioning. Stair Climbing Assessment Comments Stair Climbing Comments Pt has 4 wide stairs with HRs to enter home, unable to assess due to decreased strength, Max A x2 for transfers. PT-Balance Assessment Sitting Balance and Reactions Static Sitting Balance Ability Fair Dynamic Sitting Balance Ability Poor Standing Balance and Reactions Static Standing Balance Ability Poor Dynamic Standing Balance Ability Poor Device Used FWW M5 PT-IP Objective Assessments Start: 01/15/22 13:13 Freq: NEEDED Status: Active Protocol: Document 01/15/22 10:10 AB (Rec: 01/15/22 13:24 AB [id number]) Orientation Orientation/Cognition Level of Alertness Alert Orientation Name Safety Awareness Decreased Safety Awareness Memory Description Short Term Impaired Comments with confusion Gross Range of Motion Lower Extremity ROM Assessment Within Functional Limits Strength Lower Extremity Strength Hip 4-/5 Knee 4-/5 Sensation Assessment Sensation Gross Sensation WNL Muscle Tone Muscle Tone WNL Yes M6 PT-IP Treatment Start: 01/15/22 13:13 Freq: NEEDED Status: Active Protocol: Document 01/17/22 15:42 SP (Rec: 01/17/22 17:20 SP [id number]) Physical Therapy Treatment Exercises Exercises Ankle Pumps,Heel Slides Education Education Provided Safety Other Treatments Other Treatment Performed Instructed elevated supine APs , HSs warm up premobility x5 each LE. M7 PT-IP Assessment and Plan Start: 01/15/22 13:13 Freq: NEEDED Status: Active Protocol: Document 01/17/22 15:42 SP (Rec: 01/17/22 17:20 SP [id number]) PT Summary Assessment and Plan Potential Rehabilitation Potential Fair Status of Condition at Evaluation Evolving Summary Impairments Pain,ROM,Strength,Balance, Coordination,Sensation,Tone, Cognition,Bed Mobility, Transfers,Gait,Activity Tolerance Progress Towards Goals Slow Progress due to Activity Tolerance Assessment Summary Pt required increase physical support throughout tx with cues for breath to support 90s SaO2 safety on 6L, Max A x1 for elevated bed mob/scoot to EOB, Max A x2 STS and SPT w/ FWW 90deg BSC, 180 deg to Chair heavier max A at trunk x2 2nd 90 of 180 deg, increased L and retro lean this tx cues for centering but pt unable but BODY AND FENDER MECHANIC APPRENTICE stated not as bad as earlier with 2 nursing staff. DIRECTOR NEW PRODUCT recommending SNF for progressed strength, funcitonal mobility. Will continue to assess progress. Goals Bed Mobility Goal Independent Transfer Goal Independent,Front Wheeled Walker Gait Goal Independent,Front Wheel Walker Gait Distance 150 Other Goals improve ambulation without AD 150 ft SBA up/down 4 steps 1 rail SBA Days to Meet Goals 10 Frequency of Treatment Frequency Of Treatment Once a Day Treatment Plan Physical Therapy Treatment Plan Bed Mobility Training,Transfer Training,Gait Training, Therapeutic Exercise,Balance Retraining,Discharge Planning, Hot or Cold Pack,Neuromuscular Re-ed,Coordination Retraining Other Recommendations and Next Treatment LE ex warm up, STS, bed mob, Focus transfers, gait forward w/ FWW if able chair follow. Precautions Other Precautions falls Recommendations To Nursing Amount of Assist Needed 2 Person Assist,3 or More Person Assist,Mechanical Lift Discharge Recommendations PT Discharge Recommendations SNF Rehab Equipment Needed for Home Before FWW if not safe without AD Discharge Transportation Needs at Discharge Wheelchair/Cabulance
[2022-01-17 16:48] VITALS: BP 121/58; PULSE 112; RESP 20; TEMP 36.8; O2SAT 92
[2022-01-17] MEDS: TAMSULOSIN 0.4 MG CAPSULE 0.8 MG PO (18:27)
[2022-01-17 19:00] VITALS: O2SAT 95
[2022-01-17 19:02] VITALS: PULSE 90; O2SAT 93
[2022-01-17 19:57] LABS: Add Manual Diff / Slide Review NO; Basophils Absolute Auto 100 /uL (0-100); Basophils Percent Auto 0.4 % (0-2); Eosinophils Absolute Auto 0 /uL (0-450); Hematocrit 39.5 % (41-53); Lymphocytes Absolute Auto 900 /uL (1100-4500); Lymphocytes Percent Auto 4.8 % (25-40); Mean Corpuscular HGB Conc 32.8 % (30-36); Mean Corpuscular Hemoglobin 30.6 PG (26-34); Mean Corpuscular Volume 93.3 fL (80-100); Monocytes Absolute Auto 1100 /uL (0-900); Monocytes Percent Auto 5.9 % (3-14); Neutrophils Absolute Auto 16100 /uL (1500-7000); Neutrophils Percent Auto 88.9 % (50-75); Platelet Count 194 X10^3/uL (150-400); Red Blood Cell Count 4.24 X10^6/uL (4.5-5.9); Red Cell Distribution Width 13.3 % (11.6-14.8); White Blood Cell Count 18.2 X10^3/uL (4.5-11.0)
[2022-01-17 20:16] LABS: Blood Urea Nitrogen 13 mg/dL (9-20); Calcium 7.6 mg/dL (8.4-10.2); Carbon Dioxide 21 mmol/L (22-32); Chloride 102 mmol/L (98-107); Estimated Glomerular Filt Rate > 60 mL/min (>60); Glucose 93 mg/dL (80-110); HEMOLYSIS < 15 (0-50); Potassium 3.7 mmol/L (3.4-5.1); Sodium 133 mmol/L (137-145)
[2022-01-17] MEDS: MEMANTINE HCL 5 MG TABLET PO (21:34)
[2022-01-18 08:00] VITALS: O2SAT 92
--- NOTE | 2022-01-18 08:24 | P.DS_ITS ---
History of Present Illness History of Present Illness Date Patient Seen: 01/18/22 Time Patient Seen: 08:24 Chief complaint: generalized weakness Narrative: 86-year-old patient known to me although not seen since January 2021 who is admitted via the emergency department with pneumonia Apparently was found by his son to be a bit in altered mental state when a bit dyspneic and globally weak. Spouse was admitted to [facility] with pneumonia and discharged home today which is why the patient's son is become involved. Apparently patient was well enough to care for himself all spouse was in the hospital for 2 and half days. He was transported to the ER where he is found to have a right lower lobe pneumonia a leukocytosis maybe a very tiny oxygen requirement with an O2 saturation of 87 88% on room air with activity. He was somewhat globally weak and given his home situation particular was elected to admit him for treatment of his pneumonia etcetera Patient with some degree of cognitive dysfunction seemingly per patient's son worsening over time here somewhat recently and dramatically worse today when he saw his father. This is been bad enough to the point where patient's spouse is looking for alternative living facility such as assisted living even though patient is not yet agreement with the need for same In the ER he is found to have pneumonia with leukocytosis. Very minimal oxygen requirement. His heart rate and blood pressure were stable and at baseline for him even though he is modestly hypotensive that is his usual normal. No evidence of complication to lobar pneumonia on his chest x-ray. He tests COVID negative as well. Discharge Providers Provider Date of admission: 01/14/22 13:46 Discharge Date: 01/18/22 Primary care physician: Lexx John MD Consults: 01/14/22 16:15 Consult to Discharge Planning Routine Comment: 01/15/22 07:33 Consult to Physical Therapy Evaluate & Treat Comment: Physician Instructions: Evaluate and Treat Discharge provider: Lexx John MD Summary Hospital Course Discharge Diagnosis: 1. Community-acquired pneumonia I am organism not identified 2. Acute respiratory failure secondary to community-acquired pneumonia 3. Metabolic encephalopathy secondary to multiple factors including underlying cognitive dysfunction and illness 4. 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 Sepsis secondary to pneumonia with hypotension, hypoxia, and encephalopathy 6. Hypothyroidism on replacement Hospital Course: Patient was admitted because of his hypotension pneumonia hypoxia and altered mental status. He showed improvement initially with oxygen therapy but continued to have quite a high oxygen requirement. His antibiotic therapy was broadened somewhat with no dramatic improvement. His leukocytosis persisted. Patient seem to show some increasing encephalopathic kind of changes and or cognitive decline and or delirium. Did require lorazepam for management of his agitation but in the 24 hours prior to discharge did not require any psychoactive medications whatsoever Patient was felt to be stable from a pneumonia standpoint although still had a modest oxygen requirement at 4-6 L via nasal cannula but seem to be quite stable. He is transition to oral antibiotic therapy and did well. Patient's blood pressure returned to more of a baseline for him which is near 100-110 systolic. Patient's other medical issues remained stable. He was felt to benefit from placement in senior living prior to discharge to allow for some continued rehabilitation and recovery from his pneumonia etcetera prior to consideration of next steps whether that be discharged home or an a lternative living facility secondary to his increased and increasing needs at home secondary to his cognitive decline Status at Discharge Cognitive/behavioral status at discharge: at baseline, confused and calm Functional status at discharge: uses cane/walker Overall status at discharge: patient is progressing back to baseline Time Spent with Patient Time spent: Greater than 30 minutes Exam Vital Signs (past 8 hours): Fraction of Inspired Oxygen 44 SaO2/FiO2 Ratio 211 Oxygen Delivery Method Nasal Cannula Oxygen Flow Rate 6 Objective Labs Result Diagrams: 01/17/22 19:31 01/17/22 19:31 Labs: Laboratory Results - last 24 hr 01/17/22 01/17/22 19:31 19:31 WBC 18.2 H RBC 4.24 L Hgb 13.0 L Hct 39.5 L MCV 93.3 MCH 30.6 MCHC 32.8 RDW 13.3 Plt Count 194 Neut % (Auto) 88.9 H Lymph % (Auto) 4.8 L Mathews % (Auto) 5.9 Eos % (Auto) 0.0 L Baso % (Auto) 0.4 Neut # (Auto) 85955 H Lymph # (Auto) 900 L Mathews # (Auto) 1100 H Eos # (Auto) 0 Baso # (Auto) 100 Sodium 133 L Potassium 3.7 Chloride 102 Carbon Dioxide 21 L BUN 13 Creatinine 0.65 L Estimated GFR > 60 BUN/Creatinine Ratio 20.0 Glucose 93 Calcium 7.6 L PFSH Medical History Actinic keratosis (1993) BPH w urinary obs/LUTS Chronic back pain (1969) Excessive daytime sleepiness Head ache Hearing impairment (1997) Hemorrhoids (1969) History of basal cell carcinoma (BCC) of skin (01/20/17) History of SCC (squamous cell carcinoma) of skin (1987) Hyperthyroidism (2012) Memory impairment Microscopic hematuria Mild cognitive impairment Mitral regurgitation Mitral valve prolapse Obstructive sleep apnea of adult Skin cancer (1974) 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 Surgical History Anesthesia History of cataract removal with insertion of prosthetic lens (2012) History of squamous cell carcinoma excision (2013) History of squamous cell carcinoma excision (1987) History of transurethral resection of prostate Hx of circumcision Hx of vasectomy Status post hernia repair (1979) Status post hernia repair (1987) Status post Mohs surgery for basal cell carcinoma (03/09/17) Status post tonsillectomy and adenoidectomy (1941) Family History Brother Age: 76 Skin cancer Father Metastatic cancer to brain Respiratory failure Mother Cancer Alzheimer's disease Aspiration pneumonia Sister Age: 84 Alzheimer's disease Social History marital status: (to Virgen, lives in [place]) number of children: 3 household members: spouse lives independently: Yes caregiver/support person: Yes (Virgen reminds me when I forget) Smoking Status: Former smoker alcohol intake: never substance use type: does not use caffeine: Yes Type(s) of exercise: regular exercise frequency: daily Discharge Assessment & Plan Assessment and Plan Plan of Treatment: Patient should continue on 7 more days of oral antibiotic therapy with azithromycin Patient continue with oxygen replacement therapy with hopefully weaning over the next several days Patient to be discharged to senior living to continue with physical rehabilit ation including physical therapy and occupational therapy as well as monitoring of his cognitive status. Also requires persistent evaluation of his respiratory status including oxygen therapy Discharge Plan Discharge Plan Patient Disposition: SNF Transfer to: [facility] Discharge orders & Medications Prescriptions: New azithromycin [Zithromax] 500 mg tablet 500 mg PO DAILY 7 Days Qty: 7 0RF Continued cholecalciferol (vitamin D3) 25 mcg (1,000 unit) capsule 25 mcg PO DAILY Qty: 90 3RF pravastatin 20 mg tablet 10 mg PO DAILY Qty: 45 3RF Rx Instructions: APPT DUE FOR ANNUAL CHECK IN 2021. PLEASE CALL TO SET THIS UP :) memantine [Namenda] 5 mg tablet 5 mg PO BID Qty: 180 0RF tamsulosin 0.4 mg capsule 0.8 mg PO QPM Qty: 180 3RF levothyroxine 75 mcg tablet 75 mcg PO QDAY Qty: 90 0RF Follow up/Referrals: Lexx John MD [Primary Care Provider] - Discharge Health Status Multidrug resistant organism: No MDRO Precautions: [place] Diet/Activity/Treatments Diet: Diet as Tolerated Liquid consistency: Normal/Thin Food texture: Regular Oxygen: Oxygen 4-6 l/min NC to maintain saturation at 89+% Discharge Data Primary Care Provider: Lexx John Quality VTE Deep Vein Thrombosis/Pulmonary Embolism Present on Admission: No
[2022-01-18 08:49] VITALS: BP 130/79; PULSE 87; RESP 18; TEMP 36.7; O2SAT 92
[2022-01-18] MEDS: CHOLECALCIFEROL (VITAMIN D3) 1,000 UNIT TABLET 1000 UNIT PO (09:24)
[2022-01-18] MEDS: MEMANTINE HCL 5 MG TABLET PO (09:24)
[2022-01-18] MEDS: PRAVASTATIN 20 MG TABLET 10 MG PO (09:24)
[2022-01-18] MEDS: cefTRIAXone 1,000 MG in SODIUM CHLORIDE 0.9% 100 ML 200 MG IV (09:25)
[2022-01-18] MEDS: ENOXAPARIN 40 MG/0.4 ML SYRINGE SUBCUT (09:26)
[2022-01-18 11:25] LABS: COVID19 -Nasal RAPID Negative (Negative)
[2022-01-18] MEDS: ACETAMINOPHEN 325 MG TABLET 650 MG PO (12:24)
--- NOTE | 2022-01-18 14:33 | PT.IPTN ---
Current Diagnoses Sepsis, unspecified organism (01/14/22) Pneumonia, unspecified organism (01/14/22) Physical Therapy Treatment Note M2 PT-IP Current Condition Start: 01/15/22 13:13 Freq: NEEDED Status: Active Protocol: Document 01/18/22 14:37 TS (Rec: 01/18/22 15:18 TS [id number]) Physical Therapy Current Condition Current Condition Evaluation Date 01/15/22 Treatment Diagnosis Sepsis; PNA; difficulty in walking Onset Date 01/14/2022 M3 PT-IP Subjective Start: 01/15/22 13:13 Freq: NEEDED Status: Active Protocol: Document 01/18/22 14:37 TS (Rec: 01/18/22 15:18 TS [id number]) Subjective Physical Therapy Visit Type Type Treatment Note Visit Start Time 14:05 Visit Stop Time 14:33 Total Visit Minutes 28 Notes ABBY Morris lead treatment under the supervision on CALL WORKER PERSON Jenny. Vitals supine: Spo2 90% 6L, 80HR, BP 113/59 Vitals sitting: Spo2 97% 6L Number of CALL WORKER PERSON Visits 3 Physical Therapy Visit Comments Patient Comments Pt agreeable to PT session. Patient Goals Wanting to get up to commode to complete a BM. M4 PT-IP Mobility and Gait Start: 01/15/22 13:13 Freq: NEEDED Status: Active Protocol: Document 01/18/22 14:37 TS (Rec: 01/18/22 15:18 TS [id number]) PT-Bed Mobility Assessment Supine to Sit Supine to Sit Standby Assistance,Contact Guard Assistance,1 Person Assistance,Head of Bed Elevated,Bedrails Sit to Supine Sit to Supine Standby Assistance Scooting Scooting to Edge of Bed Standby Assistance Scooting Up and Down in Bed Standby Assistance PT-Transfer Assessment Sit to and From Stand Sit to and from Stand Moderate Assistance,1 Person Assistance Equipment Transfer Assistive Device Gait Belt,Front Wheeled Walker Orthotic/Prosthetic Devices or Brace: No Transfers Transfer Destination Bedside Commode Transfer Technique Stand Step Pivot Transfer Ability Level of Assist Contact Guard Assistance, Minimal Assistance Comments Mobility Comments Pt found resting in bed, agreeable to PT session. Pt progressed supine to sit to CGA with BUE for uprighting trunk. He scooted to EOB SBA with BUE. Pt performed sit to stand from bed with cues for handplacement and BUE support. Once in standing pt required cues to straighten knees and upright posture, performed marches x~6 with no LOB. Pt ambulated around to other side of bed CGA x15' with greater stride length and foot clearance compared to last treatment. He performed stand to sit with cues for back of legs touching bed and took 2 lateral steps to come higher into bed, Therapist managed O2 Line. Once in sitting pt requested to use commonde, he required ModA to come into standing. Pt performed pivot transfer to commode CGA progressed to Hector in standing for trunk stability when pt doffed briefs before sitting on commode. Pt performed sit to stand from the commode ModA and donned briefs with Hector during standing balance. He performed sit to supine and scooting up into bed SBA with UEs and LEs on bed. He denied any dizziness or SOB. Pt was left in bed, call light nearby , waiting for and son to return before discharge, nursing notified of BM. Gait Assessment Gait Gait Assistance Required: Contact Guard Assist Distance (Feet) 15 Able to Maintain Weight Bearing Status Yes During Gait Assistive Devices Assistive Device Gait Belt,Front Wheeled Walker Orthotic/Prosthetic Devices or Brace: No Gait Deviations General Gait Pattern Ataxic,Flexed Trunk,Narrow Based Gait,Step-to Gait Factors Limiting Gait Function Factors Limiting Gait Function Decreased Activity Tolerance, Decreased Strength,Difficulty Following Directions,Limited Range of Motion,Pain,Poor Balance,Poor Safety Awareness, Respiratory Distress Comments Gait Comments See mobility comments. Stair Climbing Assessment Comments Stair Climbing Comments Unable to perform at this time . PT-Balance Assessment Sitting Balance and Reactions Static Sitting Balance Ability Good Dynamic Sitting Balance Ability Fair Standing Balance and Reactions Static Standing Balance Ability Fair Dynamic Standing Balance Ability Fair Comments Other Balance Tests/Deviations/Treatment Pt maintained good midline : sitting with flexed posture on EOB. Pt performed marches with FWW CGA, no LOB. M5 PT-IP Objective Assessments Start: 01/15/22 13:13 Freq: NEEDED Status: Active Protocol: Document 01/15/22 10:10 AB (Rec: 01/15/22 13:24 AB [id number]) Orientation Orientation/Cognition Level of Alertness Alert Orientation Name Safety Awareness Decreased Safety Awareness Memory Description Short Term Impaired Comments with confusion Gross Range of Motion Lower Extremity ROM Assessment Within Functional Limits Strength Lower Extremity Strength Hip 4-/5 Knee 4-/5 Sensation Assessment Sensation Gross Sensation WNL Muscle Tone Muscle Tone WNL Yes M6 PT-IP Treatment Start: 01/15/22 13:13 Freq: NEEDED Status: Active Protocol: Document 01/18/22 14:37 TS (Rec: 01/18/22 15:18 TS [id number]) Physical Therapy Treatment Education Education Provided Safety M7 PT-IP Assessment and Plan Start: 01/15/22 13:13 Freq: NEEDED Status: Active Protocol: Document 01/18/22 14:37 TS (Rec: 01/18/22 15:18 TS [id number]) PT Summary Assessment and Plan Potential Rehabilitation Potential Fair Status of Condition at Evaluation Evolving Summary Impairments Pain,ROM,Strength,Balance, Coordination,Sensation,Tone, Cognition,Bed Mobility, Transfers,Gait,Activity Tolerance Progress Towards Goals Slow Progress due to Activity Tolerance Assessment Summary Pt was CGA to SBA for bed mobility, scoots and sits SBA, performed sit to stands x3 ModA, CGA for ambulation and transfers. Requires consistent cues for sit to stand sequencing and handplacement for pushing off bed and not grabbing FWW. He donned/doffed briefs in standing while using commode with Hector to maintain standing balance, performed pericare on his own. Pt demonstrated slight confusion at start of treatment when asked if he uses O2 at home but maybe due to not having hearing aid in ( was found in bedside chair). PT is currently recommnding SNF to improve strength in LEs , activity tolerance and functional transfers. Goals Bed Mobility Goal Independent Transfer Goal Independent,Front Wheeled Walker Gait Goal Independent,Front Wheel Walker Gait Distance 150 Other Goals improve ambulation without AD 150 ft SBA up/down 4 steps 1 rail SBA Days to Meet Goals 10 Frequency of Treatment Frequency Of Treatment Once a Day Treatment Plan Physical Therapy Treatment Plan Bed Mobility Training,Transfer Training,Gait Training, Therapeutic Exercise,Balance Retraining,Discharge Planning, Hot or Cold Pack,Neuromuscular Re-ed,Coordination Retraining Other Recommendations and Next Treatment LE ex warm up, STS, bed mob, Focus transfers, gait forward w/ FWW if able chair follow. Precautions Other Precautions Falls Recommendations To Nursing Amount of Assist Needed 1 Person Assist Discharge Recommendations PT Discharge Recommendations SNF Rehab Equipment Needed for Home Before FWW if not safe without AD Discharge Transportation Needs at Discharge Wheelchair/Cabulance
== END 2022-01-18 15:10 | DRG 871 ==
LOC: ED 13:46 → AC 13:47
PROVIDERS: Emergency Medicine; Family Medicine; Admitting Provider Internal Medicine; Emergency Provider Nurse Practitioner Critical Care Medicine; PCP Internal Medicine; Referring Provider Nurse Practitioner Critical Care Medicine; Visit Provider Internal Medicine
DX: A41.9 Sepsis, unspecified organism (principal); G93.41 Metabolic encephalopathy; J18.9 Pneumonia, unspecified organism; J96.01 Acute respiratory failure with hypoxia; E87.1 Hypo-osmolality and hyponatremia; R65.20 Severe sepsis without septic shock; E03.9 Hypothyroidism, unspecified; F03.90 Unspecified dementia, unspecified severity, without behavioral disturbance, psychotic disturbance, mood disturbance, and anxiety; N40.0 Benign prostatic hyperplasia without lower urinary tract symptoms; Z66 Do not resuscitate; Z20.822 Contact with and (suspected) exposure to COVID-19; Z87.891 Personal history of nicotine dependence
CPT/HCPCS: 0241U; 36415; 71045; 80048; 80053; 81001; 82550; 82553; 83605; 83735; 83880; 84145; 84484; 85025; 85610; 86140; 87040; 87086; 87635; 93005; 94760; 96365; 96367; 97116; 97162; 97530; 99223; 99233; 99238; 99285; C9803; J0696; J1650; J1940; J2060

== ENCOUNTER → 2022-05-24 07:29 | Outpatient (CLI) | payer OTHER, SELFPAY | PROVIDERS: Referring Provider Internal Medicine; Visit Provider Internal Medicine | DX: R42 Dizziness and giddiness (principal) | CPT/HCPCS: 93242 ==

== ENCOUNTER → 2022-06-08 10:11 | Outpatient (CLI) | payer OTHER, SELFPAY ==
[2022-06-08 11:27] LABS: Add Manual Diff / Slide Review NO; Alanine Aminotransferase 18 IU/L (<50); Albumin 4.2 g/dL (3.5-5.0); Albumin Globulin Ratio 1.2 (1.0-2.8); Alkaline Phosphatase 63 U/L (38-126); Aspartate Aminotransferase 27 IU/L (17-59); BUN Creatinine Ratio 26.6 (6-22); Basophils Absolute Auto 100 /uL (0-100); Basophils Percent Auto 0.6 % (0-2); Bilirubin Total 0.6 mg/dL (0.2-1.3); Blood Urea Nitrogen 21 mg/dL (9-20); Calcium 9.2 mg/dL (8.4-10.2); Carbon Dioxide 29 mmol/L (22-32); Chloride 101 mmol/L (98-107); Eosinophils Absolute Auto 200 /uL (0-450); Estimated Glomerular Filt Rate > 60 mL/min (>60); Globulin 3.5 g/dL (1.7-4.1); Glucose 89 mg/dL (80-110); HEMOLYSIS < 15 (0-50); Hematocrit 39.3 % (41-53); Hemoglobin 13.2 g/dL (13.5-17.5); Lymphocytes Absolute Auto 1400 /uL (1100-4500); Lymphocytes Percent Auto 15.3 % (25-40); Mean Corpuscular HGB Conc 33.6 % (30-36); Mean Corpuscular Hemoglobin 30.7 PG (26-34); Mean Corpuscular Volume 91.5 fL (80-100); Monocytes Absolute Auto 800 /uL (0-900); Monocytes Percent Auto 9.2 % (3-14); Neutrophils Absolute Auto 6500 /uL (1500-7000); Neutrophils Percent Auto 72.9 % (50-75); Platelet Count 184 X10^3/uL (150-400); Potassium 4.5 mmol/L (3.4-5.1); Red Cell Distribution Width 14.1 % (11.6-14.8); Sodium 136 mmol/L (137-145); Total Protein 7.7 g/dL (6.3-8.2); White Blood Cell Count 8.9 X10^3/uL (4.5-11.0)
[2022-06-08 12:29] LABS: Free T4, Direct Thyroxine 1.22 ng/dL (0.78-2.19)
[2022-06-08 12:43] LABS: Thyroid Stimulating Hormone 0.965 uIU/mL (0.47-4.68)
== END ==
PROVIDERS: PCP Internal Medicine; Referring Provider Internal Medicine; Visit Provider Internal Medicine
DX: E03.9 Hypothyroidism, unspecified (principal); E78.2 Mixed hyperlipidemia; I48.0 Paroxysmal atrial fibrillation
CPT/HCPCS: 36415; 80053; 84439; 84443; 85025

== ENCOUNTER 2022-06-27 13:36 | Emergency (ER) | payer OTHER, SELFPAY ==
--- NOTE | 2022-06-27 13:49 | DI.CT.S_ITS ---
PROCEDURE: CT ABDOMEN PELVIS W CON INDICATIONS: constapation eval for obstruction TECHNIQUE: After the administration of intravenous contrast, axial sections acquired from the lung bases to the pubic symphysis. Coronal and sagittal reformats were performed. For radiation dose reduction, the following was used: automated exposure control, adjustment of mA and/or kV according to patient size. COMPARISON: [facility], CT, CT ABDOMEN PELVIS W CON, 05/04/2020, 15:02. FINDINGS: Image quality: Excellent. Lung bases: Unremarkable. Heart: No significant findings. ABDOMEN: Liver: Unremarkable. Gallbladder: Unremarkable. Biliary ducts: Unremarkable. Pancreas: Unremarkable. Spleen: Unremarkable. Adrenal Glands: Unremarkable. Kidneys and Ureters: Unremarkable. Stomach and Bowel: Moderate diffuse colonic stool. Stomach, small bowel loops, and colon are otherwise unremarkable. Normal appendix. Peritoneum: No abnormal intraperitoneal fluid. No free air. Ventral Wall: No hernias. Abdominal Nodes: No retroperitoneal or mesenteric adenopathy by size criteria. Vessels: Aorta and inferior vena cava are normal in size. PELVIS: Pelvic Organs: Unremarkable. Bladder: Unremarkable. Pelvic Nodes: No enlarged lymph nodes. Miscellaneous: No hernias are seen. Bones: Unremarkable. IMPRESSION: 1. No acute process. 2. Normal appendix. Dictated by: Jeancarlos Christianson M.D. on 06/27/2022 at 14:38 Approved by: Jeancarlos Christianson M.D. on 06/27/2022 at 14:39
--- NOTE | 2022-06-27 13:49 | ED.GENADULT ---
HPI - General Adult General Chief complaint: Abdominal Pain Stated complaint: no BM for several days Time Seen by Provider: 06/27/22 13:40 Source: patient and family Mode of arrival: Ambulatory Limitations: no limitations History of Present Illness HPI narrative: Patient is an 86-year-old male. Is very hard of hearing. Does also some cognitive impairment/memory impairment who is here with his for evaluation of not having a bowel movement for the past 5 days. Patient states he is not having any abdominal tenderness. No vomiting. He has dried suppositories and enemas at home without any relief of symptoms. He states that he often takes medication in the morning with some water to try to help prevent this but despite this he is had no bowel movement in 5 days. Related Data Previous Rx's Medication Instructions Recorded cholecalciferol (vitamin D3) 25 25 mcg PO DAILY #90 caps 12/26/19 mcg (1,000 unit) capsule pravastatin 20 mg tablet 10 mg PO DAILY #45 tabs 10/27/21 memantine 5 mg tablet (Namenda) 5 mg PO BID #180 tabs 12/09/21 tamsulosin 0.4 mg capsule 0.8 mg PO QPM #180 caps 12/14/21 levothyroxine 75 mcg tablet 75 mcg PO QDAY #90 tabs 03/22/22 Allergies Allergy/AdvReac Type Severity Reaction Status Date / Time No Known Drug Allergies Allergy Unknown Verified 06/08/22 09:21 [NO KNOWN DRUG ALLERGIES] Review of Systems Constitutional Constitutional: Reports system reviewed and no additional complaints, except as documented Gastrointestinal Gastrointestinal: Reports system reviewed and no additional complaints, except as documented Genitourinary Genitourinary: Reports system reviewed and no additional complaints, except as documented Integumentary/Breasts Skin/Breast: Reports system reviewed and no additional complaints, except as documented Patient History Medical History Actinic keratosis (1993) Acute hyponatremia BPH w urinary obs/LUTS Chronic back pain (1969) Excessive daytime sleepiness Head ache Hearing impairment (1997) Hemorrhoids (1969) History of basal cell carcinoma (BCC) of skin (01/20/17) History of SCC (squamous cell carcinoma) of skin (1987) Hyperthyroidism (2012) Memory impairment Microscopic hematuria Mild cognitive impairment Mitral regurgitation Mitral valve prolapse Obstructive sleep apnea of adult Paroxysmal A-fib Skin cancer (1974) Stones in the urinary tract Surgical History (Updated 02/16/22 @ 11:03 by Lexx John MD) Anesthesia History of cataract removal with insertion of prosthetic lens (2012) History of squamous cell carcinoma excision (2013) History of squamous cell carcinoma excision (1987) History of transurethral resection of prostate Hx of circumcision Hx of vasectomy Status post hernia repair (1979) Status post hernia repair (1987) Status post Mohs surgery for basal cell carcinoma (03/09/17) Status post tonsillectomy and adenoidectomy (1941) Family History Brother Age: 77 Skin cancer Father Metastatic cancer to brain Respiratory failure Mother Cancer Alzheimer's disease Aspiration pneumonia Sister Age: 85 Alzheimer's disease Social History marital status: (to Virgen, lives in [place]) number of children: 3 household members: spouse lives independently: Yes caregiver/support person: Yes (Virgen reminds me when I forget) Smoking Status: Former smoker alcohol intake: never substance use type: does not use caffeine: Yes frequency: daily Smoking Status: Former smoker alcohol intake frequency: other Substance Use Type: does not use Exam Initial Vital Signs Initial Vital Signs: Vital Signs Temperature 97.5 F L 06/27/22 13:52 Pulse Rate 70 06/27/22 13:52 Respiratory Rate 18 06/27/22 13:52 Blood Pressure 142/86 H 06/27/22 13:52 Pulse Oximetry 98 06/27/22 13:52 Oxygen Delivery Method Room Air 06/27/22 13:52 HENSC Head: normal to inspection and normocephalic Resp Effort & Inspection: normal respiratory effort Cardio Rate: regular rate GI Inspection: normal to inspection Palpation: soft, No firm and No tender Skin General: no rashes or lesions noted Neuro General: patient alert, patient awake and moves all extremities Extrem General: capillary refill normal Course Orders Ordered: ED Orders 06/27/22 13:49 CT abdomen pelvis w con Stat 06/27/22 14:00 Basic Metabolic Panel Stat Complete Blood Count AUTO DIFF Stat Lipase Stat Vital Signs Vital signs: Vital Signs - 8 hr 06/27/22 13:52 Temperature 97.5 F L Pulse Rate 70 Respiratory Rate 18 Blood Pressure 142/86 H Pulse Oximetry 98 Oxygen Delivery Method Room Air Medical Decision Making Lab Data Lab results reviewed: Yes I reviewed the patient's lab results. 06/27/22 14:00 06/27/22 14:00 Labs: Lab Results 06/27/22 06/27/22 Range/Units 14:00 14:00 WBC 6.9 (4.5-11.0) X10^3/uL RBC 4.34 L (4.5-5.9) X10^6/uL Hgb 13.2 L (13.5-17.5) g/dL Hct 39.3 L (41-53) % MCV 90.5 (80-100) fL MCH 30.5 (26-34) PG MCHC 33.6 (30-36) % RDW 14.8 (11.6-14.8) % Plt Count 228 (150-400) X10^3/uL Neut % (Auto) 64.4 (50-75) % Lymph % (Auto) 23.1 L (25-40) % [place] % (Auto) 10.0 (3-14) % Eos % (Auto) 1.5 L (2-4) % Baso % (Auto) 1.0 (0-2) % Neut # (Auto) 4400 (4788-9911) /uL Lymph # (Auto) 1600 (2795-7741) /uL [place] # (Auto) 700 (0-900) /uL Eos # (Auto) 100 (0-450) /uL Baso # (Auto) 100 (0-100) /uL Sodium 136 L (137-145) mmol/L Potassium 4.5 (3.4-5.1) mmol/L Chloride 101 (98-107) mmol/L Carbon Dioxide 29 (22-32) mmol/L BUN 22 H (9-20) mg/dL Creatinine 0.76 (0.66-1.25) mg/dL Estimated GFR > 60 (>60) mL/min BUN/Creatinine Ratio 28.9 H (6-22) Glucose 103 (80-110) mg/dL Calcium 9.1 (8.4-10.2) mg/dL Lipase 80 (23-300) U/L Urine Dip Bedside Urine Glucose Negative Bedside Urine Bilirubin - Negative Bedside Urine Ketone - Negative Urine Specific Duff 1.015 Bedside Urine Occult Blood - Negative Bedside Urine pH 6.0 Bedside Urine Protein - Negative Bedside Urine Urobilinogen - Negative Bedside Urine Nitrite - Negative Bedside Urine Leukocytes - Negative Esterase Point of care testing: Urine Dip Bedside Urine Glucose Negative Bedside Urine Bilirubin - Negative Bedside Urine Ketone - Negative Urine Specific Duff 1.015 Bedside Urine Occult Blood - Negative Bedside Urine pH 6.0 Bedside Urine Protein - Negative Bedside Urine Urobilinogen - Negative Bedside Urine Nitrite - Negative Bedside Urine Leukocytes - Negative Esterase Imaging Data CT scan - abdomen/pelvis: Radiologist's Impression: PROCEDURE:? CT ABDOMEN PELVIS W CON ? INDICATIONS:? constapation eval for obstruction ? TECHNIQUE:? After the administration of intravenous contrast, axial sections acquired from the lung bases to the pubic symphysis.? Coronal and sagittal reformats were performed.? For radiation dose reduction, the following was used:? automated exposure control, adjustment of mA and/or kV according to patient size.? ? COMPARISON:? [facility], CT, CT ABDOMEN PELVIS W CON, 05/04/2020, 15:02. ? FINDINGS:? Image quality:? Excellent.? ? Lung bases:? Unremarkable. Heart:? No significant findings. ? ABDOMEN: Liver:? Unremarkable.? ? Gallbladder:? Unremarkable.? ? Biliary ducts:? Unremarkable.? ? Pancreas:? Unremarkable.? ? Spleen:? Unremarkable.? ? Adrenal Glands:? Unremarkable.? ? Kidneys and Ureters:? Unremarkable.? ? ? Stomach and Bowel:? Moderate diffuse colonic stool.? Stomach, small bowel loops, and colon are otherwise unremarkable.? Normal appendix. Peritoneum:? No abnormal intraperitoneal fluid.? No free air.? ? Ventral Wall: ? No hernias.? Abdominal Nodes:? No retroperitoneal or mesenteric adenopathy by size criteria.? Vessels:? Aorta and inferior vena cava are normal in size.? ? PELVIS: Pelvic Organs:? Unremarkable.? ? Bladder:? Unremarkable.? ? Pelvic Nodes: No enlarged lymph nodes.? Miscellaneous: No hernias are seen. ? ? ? Bones:? Unremarkable.? IMPRESSION:? 1. No acute process. 2. Normal appendix. MDM Narrative Medical decision making narrative: CT scan today does show moderate amount of stool in the colon which is consistent with his presentation of constipation. No signs of any obstruction or other surgical etiology. Had a discussion with the patient and his at bedside regarding this. We did discuss potentially doing an enema here in the ER however he stated that he did not feel like there was quite a bit of stool in his rectum. We decided to hold on the enema for now and have him take the MiraLax at home. He was given return precautions and follow-up instructions. Both he and his expressed understanding and agreement. Discharge Plan Departure Patient Disposition: Home Clinical Impression: Constipation Instructions: DI for Constipation Activity Restrictions/Additional Instructions: I recommend that you purchase MiraLax [id number]. You can take this medication multiple times a day like we discussed. Return to the emergency department for vomiting, abdominal distention or any other worsening symptoms. Continue the rest of your medications as directed. Prescriptions: No Action cholecalciferol (vitamin D3) 25 mcg (1,000 unit) capsule 25 mcg PO DAILY Qty: 90 3RF pravastatin 20 mg tablet 10 mg PO DAILY Qty: 45 3RF Rx Instructions: APPT DUE FOR ANNUAL CHECK IN 2021. PLEASE CALL TO SET THIS UP :) memantine [Namenda] 5 mg tablet 5 mg PO BID Qty: 180 0RF tamsulosin 0.4 mg capsule 0.8 mg PO QPM Qty: 180 3RF levothyroxine 75 mcg tablet 75 mcg PO QDAY Qty: 90 1RF Referrals: Lexx John MD [Primary Care Provider] - Stand Alone Forms: Patient Portal/API
[2022-06-27 13:52] VITALS: BP 142/86; PULSE 70; RESP 18; TEMP 36.4; O2SAT 98; BMI 23.3
[2022-06-27 14:17] LABS: Add Manual Diff / Slide Review NO; Basophils Absolute Auto 100 /uL (0-100); Eosinophils Absolute Auto 100 /uL (0-450); Eosinophils Percent Auto 1.5 % (2-4); Hematocrit 39.3 % (41-53); Hemoglobin 13.2 g/dL (13.5-17.5); Lymphocytes Absolute Auto 1600 /uL (1100-4500); Lymphocytes Percent Auto 23.1 % (25-40); Mean Corpuscular HGB Conc 33.6 % (30-36); Mean Corpuscular Hemoglobin 30.5 PG (26-34); Mean Corpuscular Volume 90.5 fL (80-100); Monocytes Absolute Auto 700 /uL (0-900); Neutrophils Absolute Auto 4400 /uL (1500-7000); Neutrophils Percent Auto 64.4 % (50-75); Platelet Count 228 X10^3/uL (150-400); Red Blood Cell Count 4.34 X10^6/uL (4.5-5.9); Red Cell Distribution Width 14.8 % (11.6-14.8); White Blood Cell Count 6.9 X10^3/uL (4.5-11.0)
[2022-06-27 14:19] LABS: BUN Creatinine Ratio 28.9 (6-22); Blood Urea Nitrogen 22 mg/dL (9-20); Calcium 9.1 mg/dL (8.4-10.2); Carbon Dioxide 29 mmol/L (22-32); Chloride 101 mmol/L (98-107); Estimated Glomerular Filt Rate > 60 mL/min (>60); Glucose 103 mg/dL (80-110); HEMOLYSIS 27 (0-50); Lipase 80 U/L (23-300); Potassium 4.5 mmol/L (3.4-5.1); Sodium 136 mmol/L (137-145)
[2022-06-27 15:22] VITALS: BP 136/63; PULSE 60; RESP 16; O2SAT 97
== END 2022-06-27 15:23 | disposition home or self-care (01) ==
PROVIDERS: Emergency Provider Emergency Medicine; PCP Internal Medicine
DX: K59.00 Constipation, unspecified (principal); R10.9 Unspecified abdominal pain
CPT/HCPCS: 36415; 51798; 74177; 80048; 81003; 83690; 85025; 99283; 99284; Q9967

== ENCOUNTER → 2022-07-15 13:41 | Outpatient (CLI) | payer OTHER, SELFPAY ==
--- NOTE | 2022-07-15 13:41 | DI.ECHO.S_ITS ---
[facility]---------+ [facility] +---------+ : : [address] : : : : [id number] : : : : Phone: [phone]+ Echocardiogram Report + + :Name: MIKE LEWIS Study Date: 07/15/2022 Height: 68 in : :[facility] ReadingLocation: Weight: 126 lb : : Gender: Male BSA: 1.7 m2 : :: 1935 Age: 86 yrs BP: 136/70 mmHg: :Reason For Study: Paroxysmal Atrial Fibrillation : :Ordering Physician: Alvaro, : :Mathieu Performed By: Ca Ingram : :Referring: MATHIEU BEDOLLA R : + + Interpretation Summary The left ventricle is normal in size and wall thickness. The ejection fraction is estimated to be 60-65%. There are no focal wall motion abnormalities. Diastolic parameters suggest probable normal left ventricular diastolic function and normal filling pressures. The right ventricle is normal size. The right ventricular systolic function is normal. Pulmonary artery pressures cannot be estimated because of the lack of a measurable TR jet velocity. The left atrial size is normal. Borderline right atrial enlargement. There is no significant valvular heart disease. The aortic root is normal size. Procedure: A two-dimensional transthoracic echocardiogram with color flow and Doppler was performed. The study quality was technically adequate. Comparison is made with the echocardiogram of 09/25/2021. The patient was in normal sinus rhythm during the exam. Left Ventricle: The left ventricle is normal in size and wall thickness. The ejection fraction is estimated to be 60-65%. There are no focal wall motion abnormalities. Diastolic parameters suggest probable normal left ventricular diastolic function and normal filling pressures. Right Ventricle: The right ventricle is normal size. The right ventricular systolic function is normal. Atria: The left atrial size is normal. Borderline right atrial enlargement. There is no Doppler evidence for an interatrial shunt. Mitral Valve: The mitral valve leaflets appear mildly thickened, but open well. There is a flat closure plane of the the mitral valve leaflets. There is no mitral valve stenosis. There is trace mitral regurgitation. Aortic Valve: The aortic valve is trileaflet. The aortic valve opens well. There is mild aortic valve sclerosis. There is no aortic valve stenosis. There is trace aortic regurgitation. Tricuspid Valve: The tricuspid valve leaflets are thickened and/or calcified, but open well. There is no tricuspid stenosis. There is trace tricuspid regurgitation. Pulmonary artery pressures cannot be estimated because of the lack of a measurable TR jet velocity. Pulmonic Valve: The pulmonic valve leaflets are thin and pliable; valve motion is normal. There is no pulmonic valvular stenosis. There is trace pulmonic regurgitation. There is no significant valvular heart disease. Great Vessels: The aortic root is normal size. The ascending aorta is normal in size. The pulmonary artery is normal size. The IVC is of normal diameter and collapses greater than 50% with a sniff. This suggests a low right atrial pressure of 3 mm Hg. Pericardium/ Pleura There is no pericardial effusion. There is no pleural effusion. MMode/2D Measurements & Calculations LVIDd: 4.7 cm LVOT diam: 1.8 cm LVIDs: 3.3 cm Ao root diam: 3.6 cm FS: 29.8 % asc Aorta Diam: 3.4 cm EPSS: 0.60 cm IVSd: 0.90 cm LVPWd: 0.80 cm LV núñez. diameter/BSA (cm/m^2): 2.8 LV sys. diameter/BSA (cm/m^2): 2.0 LA A2 area: 16.0 cm2 RA long axis: 5.3 cm LA A4 area: 12.4 cm2 RA area: 17.2 cm2 LA length (vol): 5.0 cm RA vol: 47.6 ml LA vol: 34.0 ml RA : 28.3 ml/m2 LA vol index: 20.3 ml/m2 RVD1 (basal): 3.4 cm LVLs ap4: 6.3 cm LVLd ap2: 7.7 cm TAPSE_phl: 2.0 cm LVLs ap2: 6.8 cm Doppler Measurements & Calculations Ao V2 max: 156.0 cm/sec LVOT Max Tommie: 97.5 cm/sec Ao V2 mean: 118.0 cm/sec LV V1 max P.8 mmHg Ao max P.0 mmHg LV V1 VTI: 21.0 cm Ao mean P.0 mmHg ROSA(I,D): 1.4 cm2 Ao V2 VTI: 39.4 cm ROSA(V,D): 1.6 cm2 sev ratio: 0.53 ROSA indexed to BSA (cm^2/m^2): 0.81 MV E max tommie: 75.4 cm/sec TR max tommie: 164.0 cm/sec MV A max tommie: 71.3 cm/sec TR max P.8 mmHg MV E/A: 1.1 PA V2 max: 99.6 cm/sec Med Peak E' Tomime: 6.4 cm/sec PA V2 mean: 70.7 cm/sec E/E' med: 11.8 PA mean P.0 mmHg Lat Peak E' Tommie: 9.6 cm/sec PA pr(Accel): 16.0 mmHg E/E' lat: 7.9 E/e' average: 9.8 MV dec time: 0.41 sec SV(LVOT): 53.4 ml AV VR_phl: 0.63 ROSA(VTI)/BSA_phl: 0.80 Reading Physician:04:09 PM
== END ==
PROVIDERS: PCP Internal Medicine; Referring Provider Internal Medicine; Visit Provider Internal Medicine
DX: I48.0 Paroxysmal atrial fibrillation (principal); G31.84 Mild cognitive impairment of uncertain or unknown etiology; I51.7 Cardiomegaly
CPT/HCPCS: 93306

== ENCOUNTER → 2022-09-16 11:16 | Outpatient (CLI) | payer OTHER, SELFPAY ==
--- NOTE | 2022-09-16 11:17 | DI.RAD.S_ITS ---
PROCEDURE: XR ABDOMEN MIN 2V INDICATIONS: constipation TECHNIQUE: 2 views of the abdomen were acquired. COMPARISON: [facility], CR, XR ABDOMEN MIN 2V, 10/16/2020, 11:07. [facility], CR, XR ABDOMEN MIN 2V, 05/04/2020, 13:16. FINDINGS: Surgical changes and devices: None. Bowel: No pneumoperitoneum. The bowel gas pattern is normal. Mild stool burden. Soft tissues: No masses; visualized solid organ contours appear normal in size. No suspicious abdominal calcifications. Bones: No suspicious bony abnormalities. Moderate degenerative changes are seen in the hips bilaterally. IMPRESSION: Mild stool burden. Nonobstructive bowel gas pattern. No pneumoperitoneum. Approved by: Gautam Olivera M.D. on 09/16/2022 at 21:02
== END ==
PROVIDERS: PCP Internal Medicine; Referring Provider Internal Medicine; Visit Provider Internal Medicine
DX: K59.00 Constipation, unspecified (principal)
CPT/HCPCS: 74019

== ENCOUNTER → 2023-06-09 12:01 | Outpatient (CLI) | payer OTHER, SELFPAY ==
[2023-06-09 12:58] LABS: Add Manual Diff / Slide Review NO; Basophils Absolute Auto 0 /uL (0-100); Basophils Percent Auto 0.5 % (0-2); Eosinophils Absolute Auto 200 /uL (0-450); Eosinophils Percent Auto 1.9 % (2-4); Hematocrit 40.1 % (41-53); Hemoglobin 13.5 g/dL (13.5-17.5); Lymphocytes Absolute Auto 1700 /uL (1100-4500); Mean Corpuscular HGB Conc 33.5 % (30-36); Mean Corpuscular Hemoglobin 31.1 PG (26-34); Mean Corpuscular Volume 92.9 fL (80-100); Monocytes Absolute Auto 800 /uL (0-900); Monocytes Percent Auto 8.6 % (3-14); Neutrophils Absolute Auto 6800 /uL (1500-7000); Platelet Count 198 X10^3/uL (150-400); Red Blood Cell Count 4.32 X10^6/uL (4.5-5.9); Red Cell Distribution Width 13.3 % (11.6-14.8); White Blood Cell Count 9.6 X10^3/uL (4.5-11.0)
[2023-06-09 13:26] LABS: Alanine Aminotransferase 18 IU/L (<50); Albumin 4.4 g/dL (3.5-5.0); Albumin Globulin Ratio 1.3 (1.0-2.8); Alkaline Phosphatase 72 U/L (38-126); Aspartate Aminotransferase 27 IU/L (17-59); BUN Creatinine Ratio 34.5 (6-22); Bilirubin Total 0.7 mg/dL (0.2-1.3); Blood Urea Nitrogen 29 mg/dL (9-20); C-Reactive Protein Quant < 0.5 mg/dL (<1.0); Calcium 9.3 mg/dL (8.4-10.2); Carbon Dioxide 29 mmol/L (22-32); Chloride 105 mmol/L (98-107); Creatine Kinase 129 U/L (55-170); Estimated Glomerular Filt Rate > 60 mL/min (>60); Globulin 3.5 g/dL (1.7-4.1); Glucose 86 mg/dL (80-110); HEMOLYSIS < 15 (0-50); Potassium 4.1 mmol/L (3.4-5.1); Sodium 138 mmol/L (137-145); Total Protein 7.9 g/dL (6.3-8.2)
[2023-06-09 13:39] LABS: Erythrocyte Sedimentation Rate 7 MM/HR (0-15)
[2023-06-09 13:54] LABS: TSH w/ Reflex to FT4 0.74 uIU/mL (0.47-4.68)
== END ==
PROVIDERS: PCP Internal Medicine; Referring Provider Internal Medicine; Visit Provider Internal Medicine
DX: I48.0 Paroxysmal atrial fibrillation (principal); G25.3 Myoclonus; E03.9 Hypothyroidism, unspecified
CPT/HCPCS: 36415; 80053; 82550; 84443; 85025; 85651; 86140

== ENCOUNTER → 2024-05-22 10:13 | Outpatient (CLI) | payer OTHER, SELFPAY ==
[2024-05-22 11:43] LABS: Alanine Aminotransferase 14 IU/L (<50); Albumin Globulin Ratio 1.2 (1.0-2.8); Alkaline Phosphatase 66 U/L (38-126); Aspartate Aminotransferase 25 IU/L (17-59); Bilirubin Total 0.6 mg/dL (0.2-1.3); Blood Urea Nitrogen 23 mg/dL (9-20); Calcium 9.3 mg/dL (8.4-10.2); Carbon Dioxide 31 mmol/L (22-32); Chloride 101 mmol/L (98-107); Estimated Glomerular Filt Rate > 60 mL/min (>60); Globulin 3.3 g/dL (1.7-4.1); Glucose 79 mg/dL (80-110); HEMOLYSIS < 15 (0-50); Potassium 4.6 mmol/L (3.4-5.1); Sodium 138 mmol/L (137-145); Total Protein 7.3 g/dL (6.3-8.2)
[2024-05-22 12:06] LABS: Free T4, Direct Thyroxine 1.59 ng/dL (0.78-2.19)
[2024-05-22 12:21] LABS: Thyroid Stimulating Hormone 0.303 uIU/mL (0.47-4.68)
== END ==
PROVIDERS: PCP Internal Medicine; Referring Provider Internal Medicine; Visit Provider Internal Medicine
DX: E03.9 Hypothyroidism, unspecified (principal); G30.9 Alzheimer's disease, unspecified; F02.80 Dementia in other diseases classified elsewhere, unspecified severity, without behavioral disturbance, psychotic disturbance, mood disturbance, and anxiety; M54.9 Dorsalgia, unspecified; G89.29 Other chronic pain; E78.2 Mixed hyperlipidemia
CPT/HCPCS: 36415; 80053; 84439; 84443